=== PATIENT | female | born 1935 | race Caucasian/White ===

== ENCOUNTER → 2018-01-02 15:40 | Outpatient (CLI) | payer MEDICARE, OTHER, SELFPAY ==
--- NOTE | 2018-01-02 15:40 | DT_ITS ---
This patient was seen during an EMR downtime January 02, 2018 - January 09, 2018. This patient may have a combination of paper and electronic documentation or all paper documentation. All documentation is viewable within the e-chart portion of [facility] for each patient visit.
[2018-01-05 13:52] LABS: Pathologist Comment May follow
[2018-01-10 13:55] LABS: Appearance /Synovial Fluid Sl Cl (CLEAR); CRYSTALS, BODY FLUID MONOSODIUM URATE; Color / Synovial Fluid Yellow (Pale Yellow); Source- Body Fluid SYNOVIAL
[2018-01-10 13:56] LABS: RBC /Synovial Fluid 390 /mm3 (0); WBC / Synovial Fluid 45 /mm3 (0)
[2018-01-10 13:57] LABS: Lymph 33 %; Monocyte /Synovial Fluid 40 %; Neutrophil 23 % (0-25); Other Cell /Synovial Fluid 3 %
[2018-01-11 11:10] LABS: Pathologist Review Reviewed
== END ==
PROVIDERS: Family Provider Family Medicine; PCP Family Medicine; Visit Provider Internal Medicine Rheumatology
DX: M17.0 Bilateral primary osteoarthritis of knee (principal)
CPT/HCPCS: 87070; 87075; 87205; 89050; 89051; 89060

== ENCOUNTER → 2018-01-27 14:56 | Outpatient (CLI) | payer MEDICARE, OTHER, SELFPAY ==
[2018-01-27 15:57] LABS: Absolute Lymphocyte Count 0.91 X10^3/ul (0.83-4.51); Absolute Neutrophil Count 3.8 X10^3/uL (2.0-7.7); Basophil# 0.01 X10^3/uL; Basophil% 0.2 % (0-1); Eosinophil# 0.18 X10^3/uL; Eosinophils% 3.4 % (0-5); Hematocrit 42.7 % (37-47); Hemoglobin 13.4 g/dl (12.0-15.0); Lymphocyte # 0.91 X10^3/ul (4.0); Lymphocyte % 17.2 % (19-41); Mean Corp Hgb Conc 31.4 g/gl (32-36); Mean Corpuscular Hgb 27.1 pg (27.0-32.0); Mean Corpuscular Volume 86.3 fL (81-99); Mean Platelet Vol. 10.3 fl (6.2-12.0); Monocyte# 0.42 X10^3/uL; Monocyte% 7.9 % (0-10); Neutrophil # 3.77 X10^3/uL (2.7-7.7); Neutrophil % 71.1 % (47-70); Platelet Count 144 K/mm3 (150-450); RBC Distribution Width CV 15.2 % (11.6-14.6); RBC Distribution Width SD 47.9 fl (35.1-43.9); Red Blood Count 4.95 M/mm3 (4.2-5.4); White Blood Count 5.3 K/mm3 (4.4-11.0)
[2018-01-27 16:13] LABS: AST(SGOT) 25 U/L (15-37); Alanine Aminotransfer ALT/SGPT 35 U/L (13-56); Albumin, Serum 3.3 g/dL (3.2-5.0); Alkaline Phosphatase 73 U/L (45-117); Anion Gap 9 (5-15); BUN 19 mg/dL (7-18); Calcium,Total 8.6 mg/dL (8.5-10.1); Chloride 106 mmol/L (98-107); Creatinine, Serum 0.95 mg/dL (0.55-1.02); EST Glomerular Filtration Rate 60 mL/min (>60); Est Glom Filt Rate - Afr Amer 73 mL/min (>60); Globulin 3.2 g/dL (2.2-4.2); Glucose 117 mg/dL (74-106); Potassium 3.8 mmol/L (3.5-5.1); Protein, Total 6.5 g/dL (6.4-8.2); Sodium Level 142 mmol/L (136-145)
[2018-01-27 17:03] LABS: POSITIVE COUNT NO; POSITIVE DIFFERENTIAL NO; POSITIVE MORPHOLOGY NO
== END ==
PROVIDERS: Family Provider Family Medicine; PCP Family Medicine; Visit Provider Internal Medicine Rheumatology
DX: M06.4 Inflammatory polyarthropathy (principal); M17.0 Bilateral primary osteoarthritis of knee; M25.561 Pain in right knee; I12.9 Hypertensive chronic kidney disease with stage 1 through stage 4 chronic kidney disease, or unspecified chronic kidney disease; N18.9 Chronic kidney disease, unspecified; K27.9 Peptic ulcer, site unspecified, unspecified as acute or chronic, without hemorrhage or perforation
CPT/HCPCS: 36415; 80053; 85025

== ENCOUNTER → 2018-07-05 10:50 | Outpatient (CLI) | payer MEDICARE, OTHER, SELFPAY ==
[2018-07-05 12:01] LABS: Absolute Lymphocyte Count 1.26 X10^3/ul (0.83-4.51); Absolute Neutrophil Count 5.2 X10^3/uL (2.0-7.7); Basophil# 0.02 X10^3/uL; Basophil% 0.3 % (0-1); Eosinophil# 0.14 X10^3/uL; Hematocrit 39.8 % (37-47); Lymphocyte # 1.26 X10^3/ul (4.0); Lymphocyte % 17.8 % (19-41); Mean Corp Hgb Conc 32.7 g/gl (32-36); Mean Corpuscular Hgb 28.3 pg (27.0-32.0); Mean Corpuscular Volume 86.5 fL (81-99); Mean Platelet Vol. 10.4 fl (6.2-12.0); Monocyte# 0.42 X10^3/uL; Monocyte% 5.9 % (0-10); Neutrophil # 5.22 X10^3/uL (2.7-7.7); Neutrophil % 73.9 % (47-70); POSITIVE COUNT NO; POSITIVE DIFFERENTIAL NO; POSITIVE MORPHOLOGY NO; Platelet Count 152 K/mm3 (150-450); RBC Distribution Width CV 15.2 % (11.6-14.6); RBC Distribution Width SD 47.8 fl (35.1-43.9); White Blood Count 7.1 K/mm3 (4.4-11.0)
[2018-07-05 12:11] LABS: ALB/GLOB Ratio 0.9 RATIO (0.9-2.4); Albumin, Serum 2.9 g/dL (3.2-5.0); BUN 22 mg/dL (7-18); BUN/Creat Ratio 19.8 RATIO (10-20); Calcium,Total 8.6 mg/dL (8.5-10.1); Creatinine, Serum 1.11 mg/dL (0.55-1.02); EST Glomerular Filtration Rate 50 mL/min (>60); Est Glom Filt Rate - Afr Amer 61 mL/min (>60); Globulin 3.4 g/dL (2.2-4.2); Glucose 157 mg/dL (74-106); Protein, Total 6.3 g/dL (6.4-8.2)
[2018-07-05 12:12] LABS: AST(SGOT) 28 U/L (15-37); Alanine Aminotransfer ALT/SGPT 31 U/L (13-56); Alkaline Phosphatase 76 U/L (45-117); Anion Gap 7 (5-15); Chloride 108 mmol/L (98-107); Potassium 4.1 mmol/L (3.5-5.1); Sodium Level 144 mmol/L (136-145)
== END ==
PROVIDERS: Family Provider Family Medicine; PCP Family Medicine; Referring Provider Internal Medicine Rheumatology; Visit Provider Internal Medicine Rheumatology
DX: M06.4 Inflammatory polyarthropathy (principal); M15.9 Polyosteoarthritis, unspecified; M17.0 Bilateral primary osteoarthritis of knee; K27.9 Peptic ulcer, site unspecified, unspecified as acute or chronic, without hemorrhage or perforation; I12.0 Hypertensive chronic kidney disease with stage 5 chronic kidney disease or end stage renal disease; N18.9 Chronic kidney disease, unspecified
CPT/HCPCS: 36415; 80053; 85025

== ENCOUNTER 2018-07-26 22:51 | Emergency (ER) | payer MEDICARE, OTHER, SELFPAY ==
[2018-07-26 22:55] VITALS: BP 143/58; PULSE 78; RESP 18; TEMP 36.7; O2SAT 100; BMI 24.5
--- NOTE | 2018-07-26 23:07 | CT_ITS ---
STUDY: CT BRAIN WITHOUT CONTRAST REASON FOR EXAM: Female, 83 years old. Recent fall with closed head injury. There is no loss of consciousness. RADIATION DOSAGE (If Supplied By Facility): CTDIvol = ( 44.99 ) mGy, DLP = ( 745.49 ) mGycm TECHNIQUE: Transaxial CT imaging of the brain was performed without administration of intravenous contrast material. Multiplanar reformations are submitted for interpretation. Individualized dose optimization techniques were used for this CT. COMPARISON: None. FINDINGS: There is a soft tissue contusion involving the high left paramedian frontal scalp consistent with recent fall and closed head injury. Normal calvarium. There is moderate cerebral atrophy with widening of the extra-axial spaces and ventricular dilatation. Normal white matter tracts of the cerebral hemispheres. Normal basal ganglia and thalami. Normal brainstem. There is mild cerebellar atrophy. There is no intracranial hemorrhage. There is moderate atherosclerotic calcification of the intracranial arteries. Normal visualized paranasal sinuses. CT/Brain/Head without Contrast IMPRESSION: 1. Chronic involutional changes of the brain. 2. No CT evidence of acute intracranial hemorrhage. Electronically Signed: Caty Tom MD at 23:52 EST , Service support ,
--- NOTE | 2018-07-27 00:03 | ED.VISSUMM ---
- ER Visit Summary Date of Service: 07/27/18 Chief Complaint: Head injury History of Present Illness: The patient is a 83 F who presents with a head injury. She has a history of multiple prior falls. She was leaning forward because she was talking on speaker phone with her son and fell forward out of her chair and hit her left forehead. No loss of consciousness. No amnesia. No headache. No nausea or vomiting. She has not anticoagulated. Physical Examination: Afebrile vitals unremarkable There is a left forehead hematoma No focal or lateralizing neurological deficits and a GCS is 15 she is alert and oriented to person place and time Heart regular Lungs clear No extremity tenderness Test Results: CT of the head shows chronic changes only Emergency Department Course and Treatment: CT of the head showed no acute intracranial process no skull fracture no intracranial hemorrhage. Patient and family advised on supportive care and discharged home. They understand return for new or worsening symptoms. Treatment Plan: [] Disposition: Discharge Impression: Closed head injury Scalp hematoma Fall This note was generated with [employer] dictation software. It may contain incorrect words, spelling, and punctuation that were not noted in review of the chart prior to signing ED Disposition - Plan for ED Patient: Chief Complaint: Fall Referrals: Jacobo Kearney MD [Primary Care Provider] -
--- NOTE | 2018-07-27 00:05 | ED.DEP ---
ED Disposition - Plan for ED Patient: Chief Complaint: Fall Instructions: ED Mechanical Fall, ED Head Injury Closed Referrals: Jacobo Kearney MD [Primary Care Provider] -
[2018-07-27 00:29] VITALS: BP 140/57; PULSE 79; RESP 17; O2SAT 98
== END 2018-07-27 00:30 | disposition home or self-care (01) ==
LOC: ED 23:52
PROVIDERS: Emergency Provider Emergency Medicine; Family Provider Family Medicine; PCP Family Medicine
DX: S00.03XA Contusion of scalp, initial encounter (principal); R40.2410 Glasgow coma scale score 13-15, unspecified time; W07.XXXA Fall from chair, initial encounter; Z91.81 History of falling; Y93.9 Activity, unspecified; Y92.9 Unspecified place or not applicable; Z79.82 Long term (current) use of aspirin
CPT/HCPCS: 70450; 99284

== ENCOUNTER 2018-07-31 13:20 | Outpatient (RCR) | payer MEDICARE, OTHER, SELFPAY ==
[2018-07-31 13:33] LABS: Color, Urine Yellow (Yellow); Glucose, Dipstick Normal (Normal); Ketone-Dipstick Negative (Negative); Leukocyte Esterase-Dipstick 500 /ul (Negative); Nitrite-Dipstick Negative (Negative); Occult Blood-Urine 150 /ul (Negative); Protein-Dipstick 100 mg/dl (Negative); Specific Gravity, Urine 1.015 (1.002-1.030); Urine Bilirubin Dipstick Negative (Negative); Urine Clarity Turbid (Clear); Urine Urobilinogen Normal (Normal)
== END 2018-07-31 14:21 | disposition home or self-care (01) ==
LOC: HHLAB 13:20
PROVIDERS: Family Provider Family Medicine; PCP Family Medicine; Referring Provider Family Medicine; Visit Provider Family Medicine
DX: N39.0 Urinary tract infection, site not specified (principal); F03.90 Unspecified dementia, unspecified severity, without behavioral disturbance, psychotic disturbance, mood disturbance, and anxiety; L89.152 Pressure ulcer of sacral region, stage 2; F41.9 Anxiety disorder, unspecified
CPT/HCPCS: 81002; 87077; 87086; 87088; 87186

== ENCOUNTER 2018-08-31 22:13 | Inpatient (IN) | payer MEDICARE, OTHER, SELFPAY ==
[2018-08-31 22:15] VITALS: BP 147/74; PULSE 76; RESP 16; TEMP 36.7; O2SAT 98; BMI 19.5
--- NOTE | 2018-08-31 22:29 | CT_ITS ---
STUDY: CT BRAIN WITHOUT CONTRAST REASON FOR EXAM: Female, 83 years old. Confusion/altered mental status. RADIATION DOSAGE (If Supplied By Facility): CTDIvol = ( 20.80 ) mGy, DLP = ( 799.73 ) mGycm TECHNIQUE: Transaxial CT imaging of the brain was performed without administration of intravenous contrast material. Individualized dose optimization techniques were used for this CT. COMPARISON: Prior head CT exam of July 26, 2018 FINDINGS: Normal soft tissue structures. Normal calvarium. There is moderate cerebral atrophy with widening of the extra-axial spaces and ventricular dilatation. Normal white matter tracts of the cerebral hemispheres. Normal basal ganglia and thalami. Normal brainstem. There is mild cerebellar atrophy. There is no intracranial hemorrhage. There are no findings of an acute ischemic infarction. Normal visualized paranasal sinuses. CT/Brain/Head without Contrast IMPRESSION: No acute intracranial findings. Negative for hemorrhage, hematoma or mass density. Moderately advanced involutional changes stable from prior exam. Electronically Signed: Eden Cordoba MD at 23:05 EST , Service support ,
--- NOTE | 2018-08-31 22:30 | EKG12_ITS ---
Test Reason : STROKE SYMPTOMS Blood Pressure : / mmHG Vent. Rate : 072 BPM Atrial Rate : 072 BPM P-R Int : 156 ms QRS Dur : 122 ms QT Int : 396 ms P-R-T Axes : 058 -60 070 degrees QTc Int : 433 ms Normal sinus rhythm Right bundle branch block Left anterior fascicular block Bifascicular block Left ventricular hypertrophy with repolarization abnormality Abnormal ECG Confirmed by BRENDAN ROBLES, PALOMO ([id number]), acquisitions editor VASQUEZ SUBRAMANIAN ([id number]) on 09/05/2018 8:42:07 AM Referred By: MELISSA Confirmed By:PALOMO CARDONA MD
[2018-08-31 22:31] LABS: Bedside Glucose 172 mg/dL (70-110)
[2018-08-31 22:43] LABS: Basophil# 0.01 X10^3/uL; Basophil% 0.1 % (0-1); Eosinophil# 0.02 X10^3/uL; Eosinophils% 0.2 % (0-5); Hematocrit 44.6 % (37-47); Hemoglobin 14.6 g/dl (12.0-15.0); Lymphocyte % 8.9 % (19-41); Mean Corp Hgb Conc 32.7 g/gl (32-36); Mean Corpuscular Hgb 28.1 pg (27.0-32.0); Mean Corpuscular Volume 85.9 fL (81-99); Mean Platelet Vol. 10.3 fl (6.2-12.0); Monocyte# 1.07 X10^3/uL; Neutrophil # 7.03 X10^3/uL (2.7-7.7); Neutrophil % 78.6 % (47-70); Platelet Count 156 K/mm3 (150-450); RBC Distribution Width CV 15.1 % (11.6-14.6); RBC Distribution Width SD 46.7 fl (35.1-43.9); Red Blood Count 5.19 M/mm3 (4.2-5.4)
[2018-08-31 22:45] LABS: POSITIVE COUNT NO; POSITIVE DIFFERENTIAL NO; POSITIVE MORPHOLOGY NO
--- NOTE | 2018-08-31 22:46 | RAD_ITS ---
STUDY: X-RAY CHEST REASON FOR EXAM: Female, 83 years old. Confusion TECHNIQUE: Single AP portable view of the chest. COMPARISON: Prior chest radiograph of November 29, 2015. FINDINGS: The lungs are clear and expanded. Mild chronic elevation of the right diaphragm. Normal size heart. Status post prior midline sternotomy. Normal visualized pulmonary arteries. Normal visualized aortic arch and descending thoracic aorta. Normal visualized ribs, clavicles, and shoulders. There is no demonstrated abnormality of the visualized soft tissue structures of the upper abdomen. RAD/Chest 1 View (Portable) IMPRESSION: No acute cardiopulmonary findings or changes. Negative for major consolidation, focal atelectasis, pleural effusion or cardiomegaly. Status post prior midline sternotomy. Electronically Signed: Eden Cordoba MD at 23:02 EST , Service support ,
[2018-08-31 23:05] LABS: Anion Gap 8 (5-15); BUN 56 mg/dL (7-18); BUN/Creat Ratio 15.5 RATIO (10-20); Calcium,Total 9.3 mg/dL (8.5-10.1); Chloride 96 mmol/L (98-107); Creatinine, Serum 3.61 mg/dL (0.55-1.02); EST Glomerular Filtration Rate 13 mL/min (>60); Est Glom Filt Rate - Afr Amer 16 mL/min (>60); Estimated Creatinine Clearance 9.21 ml/min; Glucose 151 mg/dL (74-106); Potassium 5.9 mmol/L (3.5-5.1); Sodium Level 132 mmol/L (136-145)
--- NOTE | 2018-08-31 23:32 | ED.DCSUM_ITS ---
- ER Visit Summary Date of Service: 08/31/18 Chief Complaint: Transient unresponsiveness History of Present Illness: The patient is a 83 F here with spouse caregiver and family private vehicle for episode of transient unresponsiveness occurring at 7:30 PM this evening. This was 3 hours prior to arrival. Caregiver was placing patient from wheelchair into recliner, states patient slumped head forward and was pursed breathing with her lips that lasted for 30 seconds. Patient was unarousable during that time. Patient came back to normal and has been baseline. History of dementia alert and oriented to person. Patient is wheelchair-bound for transport, can slightly weight-bear for transfer. This is due to debility over time. There is no injuries. Reported patient had a UTI 2 weeks ago and treated. A week ago found to have shingles on the left chest wall on antivirals with improving rash. Patient denies any symptoms currently. Additional medical history notes coronary disease with 1 stent in the past, hypertension, hypercholesterolemia, anxiety and depression. Family denies any recent vomiting or diarrhea. Denies any cough. Physical Examination: General: Alert and oriented to person, no acute distress, following commands. HEENT: Normocephalic, atraumatic. Moist mucosa membranes Neck: supple, nontender. Cardiovascular: Regular rate and rhythm, no murmurs Respiratory: Normal breath sounds, symmetric, no distress Abdomen: Soft, nontender, nondistended Extremities: Nontender, mild lower extremity edema, pulses intact ?4 Neuro: no focal neurological deficits. Unable to access for neurological including NIH due to patient dementia and baseline debility. Test Results: EKG sinus rate of 72 right bundle branch block no ST or T wave changes. No peak T waves. CT head negative. Chest x-ray with no acute findings. Emergency Department Course and Treatment: Patient vital signs stable, afebrile. Patient is baseline per family. The family concerns of the unresponsive event, workup initiated. Discussed with spouse who is bedside and family CODE STATUS, and he reports we would like her around still. Discussed if symptoms deteriorate with intubation and CPR and he states yes. Workup initiated. CT head negative. Chest x-ray negative. EKG with chronic right bundle branch block. White count 9 hemoglobin 14.6. Platelets 156. Patient had a creatinine of 3.61 and BUN of 56. Creatinine was 0.95-1.11 less than 2 months ago. She was given 500 cc bolus. Potassium was hemolyzed moderately was 5.9. I will reason for a recheck due to hemolysis. However could be high due to her AK I. Her EKG did not show any hyperkalemic changes. Pending results, I did discuss with hospitalist for admission due to acute kidney injury. Recheck potassium without treatment due to moderate hemolysis and have an AK, results in the normal range at 4.6. She will be admitted to the medical floor. Treatment Plan: [] Disposition: Admission Impression: 1. Acute kidney injury 2. Transient unresponsiveness This note was generated with [employer] dictation software. It may contain incorrect words, spelling, and punctuation that were not noted in review of the chart prior to signing ED Disposition - Plan for ED Patient: Disposition: Acute Care Hospital [facility] Diagnosis: Acute kidney injury, transient unresponsiveness Referrals: Jacobo Kearney MD [Primary Care Provider] -
[2018-08-31 23:39] VITALS: PULSE 62; RESP 18; O2SAT 100
[2018-08-31 23:40] LABS: Red Blood Cells-Urine 0 SEEN /hpf (0-5)
[2018-08-31 23:48] LABS: Color, Urine Yellow (Yellow); Glucose, Dipstick Normal (Normal); Ketone-Dipstick Negative (Negative); Leukocyte Esterase-Dipstick 25 /ul (Negative); Nitrite-Dipstick Negative (Negative); Occult Blood-Urine 10 /ul (Negative); Protein-Dipstick 100 mg/dl (Negative); Urine Bilirubin Dipstick Negative (Negative); Urine Clarity Sl. Cloudy (Clear); Urine Urobilinogen Normal (Normal)
[2018-08-31 23:48] LABS: Potassium 4.6 mmol/L (3.5-5.1)
--- NOTE | 2018-08-31 23:52 | PCM.HP.STD ---
Problem List (1) Acute kidney injury Status: Acute (2) Confusion Status: Deleted (3) Inflammatory polyarthritis Status: Chronic (4) Hypertension Status: Chronic (5) Hyperlipidemia Status: Chronic (6) CAD (coronary artery disease) Status: Chronic Comment: Multiple stents (7) Anxiety and depression Status: Chronic History of Present Illness Date of Admission: 08/31/18 Chief Complaint: Reported unresponsiveness, weakness, poor oral intake. The patient is a 83 year old F with past medical history as mentioned above presented to the emergency room because of reported very short. Of unresponsiveness. According to the patient's and daughter, patient's caregiver was placing her from the wheelchair to the recliner and patient was slumped her head forward, was lethargic for about 30 seconds and according to the patient caregiver, patient was unarousable. When I was talking to the patient's family about this transient episode of unresponsiveness, the patient herself stated that she is not in agreement that she passed out and she was aware of surroundings but she was very weak and sleepy. She denied any prodromal symptoms such as chest pain, shortness of breath, dizziness or lightheadedness. This patient had her daughter around 1 week ago in this hospital and according to her , she has been depressed, lonely most of her time and not eating or drinking enough. The patient is wheelchair-bound most of her time and she can only weight-bear for transfers. She has history of CAD status post CABG and stents and she has been on only aspirin, she is not on beta-blockers or JORDI inhibitors. She has history of hypertension and currently, she is not on any antihypertensive medications and her blood pressure has been stable. She had a history of anxiety and depression and she has been on escitalopram and risperidone. In the emergency department, her vital signs were stable. Patient was depressed, no eye contact and she closed her eyes most of the encounter but she was alert and oriented x3. Her routine blood work was remarkable for hyponatremia, BUN of 56 and creatinine of 3.61. Urinalysis revealed cloudy urine, negative for nitrite, 0-5 WBCs and rare bacteria seen. EKG revealed sinus rhythm with right bundle branch block, no acute findings. CT scan brain showed no acute findings. Chest x-ray showed no acute infiltrate, consolidation or effusion. She is being admitted for acute kidney injury likely due to poor oral intake and dehydration as well as metabolic encephalopathy. Past Medical History Past Medical History (Chronic Problems): Chronic Problems Inflammatory polyarthritis (Chronic) Hypertension (Chronic) Obesity (BMI 30.0-34.9) (Chronic) Hyperlipidemia (Chronic) CAD (coronary artery disease) (Chronic) Multiple stents Anxiety and depression (Chronic) Allergies Penicillins Allergy (Verified 08/31/18 22:19) Rash erythromycin base [Erythromycin Base] Adverse Reaction (Verified 08/31/18 22:19) Nausea/Vom/Diarrhea Sulfa (Sulfonamide Antibiotics) Adverse Reaction (Verified 08/31/18 22:19) Nausea/Vom/Diarrhea Home Medications: Ambulatory Orders Medication Instructions Recorded Aspirin 81 mg PO DAILY 07/26/18 Calcium Carbonate/Vitamin D3 1 each PO BID 07/26/18 [Oyster Shell Calcium-Vit D Tab] Cholecalciferol (VIT D3) [Vitamin 1,000 unit PO SUMOWEFR 07/26/18 D] Cholecalciferol (VIT D3) [Vitamin 1,000 unit PO TUTHSA 07/26/18 D] Escitalopram Oxalate 10 mg PO QHS 07/26/18 Folic Acid 0.4 mg PO DAILY@0800 07/26/18 Hydroxychloroquine [Plaquenil] 200 mg PO DAILYCM 07/26/18 Multivitamin/Iron/Folic Acid 1 each PO DAILY 07/26/18 [Centrum Adults Tablet] Risperidone 0.5 mg PO BID 07/26/18 Valacyclovir HCl [Valacyclovir] 1,000 mg PO TID 08/31/18 Surgical History: appendectomy, coronary bypass surgery, hysterectomy, - - CABG x 1, PCI x 2, hysterectomy, appendectomy. 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 Denies: Chills, Fever Eyes: Denies: Blurred vision, Double vision, Drainage, Redness HEENT: Denies: Difficulty Hearing, Ear Pain, Eye Pain, Nasal Congestion, Sore Throat Cardiovascular: Denies: Chest Pain, Chest Pressure, Chest Tightness, Heaviness, Palpitations, Syncope Respiratory: Denies: Cough, Pleuritic Pain, Shortness of Breath, Sputum production, Wheezing Gastrointestinal: Denies: Abdominal Pain, Constipation, Diarrhea, Nausea, Vomiting Genitourinary: Denies: Dysuria, Frequency, Hematuria Musculoskeletal: Denies: Arm Pain, Back Pain, Foot Pain Skin: Denies: Dryness, Rash Neurological: Denies: Balance problems, Double vision, Change in Speech, Slurred speech, Headaches, Incoordination Psychiatric: Reports: Anxiety, Depression Endocrine: Denies: Change in Body Habitus, Polydipsia VTE Information - Inpt Only VTE Present on Admission: No VTE Mechan Device Prophylaxis: None VTE Pharm Prophylaxis ordered?: Yes Patient Problems: Active and Suspected Problems Encephalopathy (Acute) Acute kidney injury (Acute) - Physical Exam General: Alert, Oriented x3, Cooperative, No apparent distress, - HEENT: Atraumatic, PERRLA, EOMI, Normocephalic Oral: No Gingival or Mucosal Lesions/ Ulcerations, Dry Mucosa Neck: Supple, No JVD, Negative Carotid Bruits, Trachea Midline, Thyroid Normal Size and Texture Lungs: Clear to auscultation, No rhonchi, No wheeze, No rales, Diminished Cardiovascular: Regular rate, Regular Rhythm, Normal S1, Normal S2, PMI Normal Abdomen: Bowel Sounds Present, Soft, Non Tender, Non-Distended, No Hepato-splenomegaly Extremities: No clubbing, No cyanosis, No edema Skin: No rashes, No breakdown Lymphatic: No Cervical, Supraclavicular, or Inguinal Adenopathy Neurological: Cranial nerves II-XII grossly intact, Motor Exam 5/5 strength throughout, - - Global weakness. Psych/Mental Status: Depressed, - - No eye contact. Vital Signs Temp Pulse Resp BP Pulse Ox 98.0 F 62 18 147/74 H 100 08/31/18 22:15 08/31/18 23:39 08/31/18 23:39 08/31/18 22:15 08/31/18 23:39 Oxygen Flow Rate (L/min) 76 Oxygen Delivery Method Room Air Weight: 107 lb Body Mass Index (BMI) 19.5 Finger Stick Blood Glucose 172 Laboratory Tests Past 24 Hrs 08/31/18 08/31/18 08/31/18 22:30 22:30 23:25 WBC 9.0 RBC 5.19 Hgb 14.6 Hct 44.6 MCV 85.9 MCH 28.1 MCHC 32.7 RDW 15.1 H RDW Differential 46.7 H Plt Count 156 MPV 10.3 Immature Gran % (Auto) 0.200 Neut % (Auto) 78.6 H Lymph % (Auto) 8.9 L [place] % (Auto) 12.0 H Eos % (Auto) 0.2 Baso % (Auto) 0.1 Absolute Neuts (auto) 7.0 Absolute Lymphs (auto) 0.80 L Total Counted Not Reportable Sodium 132 L Potassium 5.9 H 4.6 Chloride 96 L Carbon Dioxide 28.0 Anion Gap 8 BUN 56 H Creatinine 3.61 H Estim Creat Clear Calc 9.21 Est GFR (MDRD) Af Amer 16 L Est GFR (MDRD) Non-Af 13 L BUN/Creatinine Ratio 15.5 Glucose 151 H Calcium 9.3 Urine Color Urine Clarity Urine pH Ur Specific [place] Urine Protein Urine Glucose (UA) Urine Ketones Urine Occult Blood Urine Nitrite Urine Bilirubin Urine Urobilinogen Ur Leukocyte Esterase Urine RBC Urine WBC Ur Squamous Epith Cells Urine Bacteria Urine Mucus 08/31/18 23:35 WBC RBC Hgb Hct MCV MCH MCHC RDW RDW Differential Plt Count MPV Immature Gran % (Auto) Neut % (Auto) Lymph % (Auto) [place] % (Auto) Eos % (Auto) Baso % (Auto) Absolute Neuts (auto) Absolute Lymphs (auto) Total Counted Sodium Potassium Chloride Carbon Dioxide Anion Gap BUN Creatinine Estim Creat Clear Calc Est GFR (MDRD) Af Amer Est GFR (MDRD) Non-Af BUN/Creatinine Ratio Glucose Calcium Urine Color Yellow Urine Clarity Sl. Cloudy Urine pH 6.0 Ur Specific [place] 1.010 Urine Protein 100 H Urine Glucose (UA) Normal Urine Ketones Negative Urine Occult Blood 10 H Urine Nitrite Negative Urine Bilirubin Negative Urine Urobilinogen Normal Ur Leukocyte Esterase 25 H Urine RBC Pending Urine WBC Pending Ur Squamous Epith Cells Pending Urine Bacteria Pending Urine Mucus Pending POC Glucose 08/31/18 22:24 POC Glucose 172 H Clinical Impression(s) from Imaging Studies Brain CT 08/31/18 22:29 IMPRESSION: No acute intracranial findings. Negative for hemorrhage, hematoma or mass density. Moderately advanced involutional changes stable from prior exam. Electronically Signed: Eden Cordoba MD at 23:05 EST , Service support , Chest X-Ray 08/31/18 22:46 IMPRESSION: No acute cardiopulmonary findings or changes. Negative for major consolidation, focal atelectasis, pleural effusion or cardiomegaly. Status post prior midline sternotomy. Electronically Signed: Eden Cordoba MD at 23:02 EST , Service support , Assessment/Plan All Active Problems Encephalopathy (Acute) Acute kidney injury (Acute) This is an 83 years old female patient presented to the ED because of reported transient episode of unresponsiveness versus lethargy and sleepiness, weakness, poor oral intake and she was found to have acute kidney injury with hyponatremia as well as encephalopathy which is likely metabolic. #1 acute kidney injury/hyponatremia: This is prerenal secondary to severe dehydration and poor oral intake. It is hypovolemic hyponatremia. Baseline kidney function is normal. Patient's daughter 1 week ago and patient has been depressed, not eating or drinking enough. Plan: Admit to [facility] floor, telemetry, encourage oral intake, IV fluids, input output chart, regular diet, repeat CBC and BMP tomorrow morning, PT OT evaluation and treatment. #2 encephalopathy: Patient had a reported transient unresponsiveness but patient herself is not in agreement because she thinks that she was awake but very sleepy and weak. No evidence of focal deficit on physical exam. CT scan brain showed no acute findings. EKG revealed normal sinus rhythm with right bundle branch block, no acute findings. Her vital signs are stable. At this time, she is alert and oriented x3 although her eyes were closed during my encounter. This likely metabolic encephalopathy secondary to acute kidney injury and poor oral intake. Blood sugar has been stable. Plan: IV fluids as above, PT OT evaluation and treatment. #3 CAD status post CABG and stents: EKG reviewed as above, stable, continue aspirin. Patient is not on beta-blockers or JORDI inhibitors, not sure why. #4 hypertension: Blood pressure stable, she is not on any antihypertensive medications. #5 hyperlipidemia: She is not on statin at this time. #6 inflammatory polyarthritis: Continue Plaquenil, Tylenol as needed. #7 anxiety/depression: Continue escitalopram, hold risperidone. #8 DVT prophylaxis: Subcu heparin. This note was generated with [employer] dictation software. It may contain incorrect words, spelling, and punctuation that were not noted in checking the note before signing. Code Visit Inpatient E&M: 55184 Init Hosp L3
[2018-08-31 23:55] LABS: Squamous Epithelial Cells - UA 0-5 SEEN /hpf (5-10)
[2018-08-31 23:56] LABS: Amorphous Sediment 1+; Bacteria RARE /hpf (None Seen); Mucous, Urine 1+ /hpf (<or=2+); White Blood Cells 0-5 SEEN /hpf (0-5)
[2018-09-01] VITALS (13 sets, daily range): BP systolic 120–173; BP diastolic 44–78; PULSE 61–74; RESP 14–18; TEMP 36.2–37.6; O2SAT 95–100; BMI 21.7; BMI 21.8
--- NOTE | 2018-09-01 00:36 | EKG12_ITS ---
Test Reason : CP Blood Pressure : / mmHG Vent. Rate : 059 BPM Atrial Rate : 059 BPM P-R Int : 164 ms QRS Dur : 138 ms QT Int : 434 ms P-R-T Axes : 027 -50 062 degrees QTc Int : 429 ms Sinus bradycardia Right bundle branch block Left anterior fascicular block Bifascicular block Left ventricular hypertrophy with repolarization abnormality Abnormal ECG Confirmed by BRENDAN ROBLES, PALOMO ([id number]), photo editor VASQUEZ SUBRAMANIAN ([id number]) on 09/06/2018 1:48:47 PM Referred By: NICKY Confirmed By:PALOMO CARDONA MD
[2018-09-01] MEDS: 0.9% Normal Saline 1,000 ML 125 ML IV ×3 (02:31→17:08)
[2018-09-01] MEDS: Acyclovir 800 MG Tablet PO ×3 (05:15→20:24)
[2018-09-01] MEDS: Heparin Injection (Vial) 5,000 UNIT/ML VIAL 5000 UNIT SC ×3 (05:15→20:23)
[2018-09-01 05:18] LABS: Absolute Lymphocyte Count 0.78 X10^3/ul (0.83-4.51); Absolute Neutrophil Count 4.9 X10^3/uL (2.0-7.7); Basophil# 0.01 X10^3/uL; Basophil% 0.2 % (0-1); Eosinophil# 0.11 X10^3/uL; Eosinophils% 1.7 % (0-5); Hemoglobin 11.8 g/dl (12.0-15.0); Lymphocyte # 0.78 X10^3/ul (4.0); Lymphocyte % 11.9 % (19-41); Mean Corp Hgb Conc 32.8 g/gl (32-36); Mean Corpuscular Volume 85.3 fL (81-99); Mean Platelet Vol. 10.2 fl (6.2-12.0); Monocyte# 0.73 X10^3/uL; Monocyte% 11.1 % (0-10); Neutrophil % 74.8 % (47-70); Platelet Count 134 K/mm3 (150-450); RBC Distribution Width CV 14.9 % (11.6-14.6); RBC Distribution Width SD 44.6 fl (35.1-43.9); Red Blood Count 4.22 M/mm3 (4.2-5.4); White Blood Count 6.6 K/mm3 (4.4-11.0)
[2018-09-01 05:21] LABS: POSITIVE COUNT NO; POSITIVE DIFFERENTIAL NO; POSITIVE MORPHOLOGY NO
[2018-09-01 05:33] LABS: Anion Gap 12 (5-15); BUN 56 mg/dL (7-18); BUN/Creat Ratio 17.7 RATIO (10-20); Calcium,Total 8.3 mg/dL (8.5-10.1); Chloride 102 mmol/L (98-107); Creatinine, Serum 3.17 mg/dL (0.55-1.02); EST Glomerular Filtration Rate 15 mL/min (>60); Est Glom Filt Rate - Afr Amer 18 mL/min (>60); Estimated Creatinine Clearance 10.82 ml/min; Glucose 94 mg/dL (74-106); Sodium Level 138 mmol/L (136-145)
--- NOTE | 2018-09-01 08:51 | PCM.PN.HOSP ---
Patient Problems: Active and Suspected Problems Encephalopathy (Acute) Acute kidney injury (Acute) Subjective: Patient is an 83-year-old lady with history of underlying dementia was brought to the ED by the family on account of increasing lethargy. Patient assessment on admission was consistent with acute metabolic encephalopathy from acute kidney injury. Admitted to regular nursing floor for further management Objective: GENERAL: Sleepy but arousable HEENT: Atraumatic; EYES; Anicteric, NECK; supple, normal thyroid, RESPIRATORY: Diminished to auscultation bilaterally, CARDIOVASCULAR: Regular S1 S2, GI: soft, non-tender, normoactive bowel sounds, : No Renal angle tenderness; EXTREMITIES: No edema, no clubbing, no cyanosis. NEURO: Unable to assess due to patient lethargy SKIN: No Rash PSYCH; lethargic Vitals/I&O's: Vital Signs Temp Pulse Resp BP Pulse Ox 97.4 F L 73 14 142/61 H 98 09/01/18 05:12 09/01/18 06:04 09/01/18 05:12 09/01/18 05:12 09/01/18 05:12 Oxygen Flow Rate (L/min) 76 Oxygen Delivery Method Room Air Weight: 54 kg Body Mass Index (BMI) 21.7 Finger Stick Blood Glucose 172 Intake and Output for Last 24 Hours 08/30/18 08/31/18 09/01/18 23:59 23:59 23:59 Intake Total 674 / 674 Balance 674 / 674 Laboratory Results 08/31/18 22:24: POC Glucose 172 H 08/31/18 22:30: WBC 9.0, RBC 5.19, Hgb 14.6, Hct 44.6, MCV 85.9, MCH 28.1, MCHC 32.7, RDW 15.1 H, RDW Differential 46.7 H, Plt Count 156, MPV 10.3, Immature Gran % (Auto) 0.200, Neut % (Auto) 78.6 H, Lymph % (Auto) 8.9 L, [place]ard % (Auto) 12.0 H, Eos % (Auto) 0.2, Baso % (Auto) 0.1, Absolute Neuts (auto) 7.0, Absolute Lymphs (auto) 0.80 L, Total Counted Not Reportable 08/31/18 22:30: Sodium 132 L, Potassium 5.9 H, Chloride 96 L, Carbon Dioxide 28.0, Anion Gap 8, BUN 56 H, Creatinine 3.61 H, Estim Creat Clear Calc 9.21, Est GFR (MDRD) Af Amer 16 L, Est GFR (MDRD) Non-Af 13 L, BUN/Creatinine Ratio 15.5, Glucose 151 H, Calcium 9.3 08/31/18 23:25: Potassium 4.6 08/31/18 23:35: Urine Color Yellow, Urine Clarity Sl. Cloudy, Urine pH 6.0, Ur Specific Lindsay 1.010, Urine Protein 100 H, Urine Glucose (UA) Normal, Urine Ketones Negative, Urine Occult Blood 10 H, Urine Nitrite Negative, Urine Bilirubin Negative, Urine Urobilinogen Normal, Ur Leukocyte Esterase 25 H, Urine RBC 0 SEEN, Urine WBC 0-5 SEEN, Ur Squamous Epith Cells 0-5 SEEN, Amorphous Sediment 1+, Urine Bacteria RARE, Urine Mucus 1+ 09/01/18 04:56: WBC 6.6, RBC 4.22, Hgb 11.8 L, Hct 36.0 L, MCV 85.3, MCH 28.0, MCHC 32.8, RDW 14.9 H, RDW Differential 44.6 H, Plt Count 134 L, MPV 10.2, Immature Gran % (Auto) 0.300, Neut % (Auto) 74.8 H, Lymph % (Auto) 11.9 L, Seward % (Auto) 11.1 H, Eos % (Auto) 1.7, Baso % (Auto) 0.2, Absolute Neuts (auto) 4.9, Absolute Lymphs (auto) 0.78 L, Total Counted Not Reportable 09/01/18 04:56: Sodium 138, Potassium 4.0, Chloride 102, Carbon Dioxide 24.0, Anion Gap 12, BUN 56 H, Creatinine 3.17 H, Estim Creat Clear Calc 10.82, Est GFR (MDRD) Af Amer 18 L, Est GFR (MDRD) Non-Af 15 L, BUN/Creatinine Ratio 17.7, Glucose 94, Calcium 8.3 L Current Medications Acetaminophen (Tylenol) 650 mg PO Q6H PRN PRN PRN Reason: Fever, headache, pain Acyclovir (Zovirax) 800 mg PO TID [facility] Aspirin (Aspirin, Baby) 81 mg PO DAILYCM [facility] Escitalopram Oxalate (Lexapro) 10 mg PO QHS [facility] Folic Acid (Folic Acid) 0.5 mg PO DAILY@0800 [facility] Heparin Sodium (Porcine) (Heparin Na) 5,000 unit SC Q8 [facility] Last Admin: 09/01/18 05:15 Dose: 5,000 unit Hydroxychloroquine Sulfate (Plaquenil) 200 mg PO DAILYCM [facility] Sodium Chloride () 1,000 mls @ 125 mls/hr IV .Q8H [facility] Last Admin: 09/01/18 02:31 Dose: 125 mls/hr Magnesium Hydroxide (Milk Of Magnesia) 30 ml PO DAILY PRN PRN PRN Reason: Constipation Multivitamins/Minerals (Multivitamin With Minerals) 1 tablet PO DAILY@0800 [facility] Nutritional Formula (Lactose Free) (Ensure Enlive) 120 ml PO 4X/DAY [facility] Ondansetron HCl (Zofran) 4 mg IV Q6H PRN PRN PRN Reason: NAUSEA/VOMITING Sodium Chloride () 5 - 15 ml IV UD PRN PRN Reason: SALINE FLUSH Medical Necessity - Tobacco Use Smoking Status: Former smoker Assessment/Plan All Active Problems Encephalopathy (Acute) Acute kidney injury (Acute) Patient is an 83-year-old lady with history of underlying dementia was brought to the ED by the family on account of increasing lethargy. Patient assessment on admission was consistent with acute metabolic encephalopathy from acute kidney injury. Admitted to regular nursing floor for further management 1. Acute metabolic encephalopathy secondary to acute kidney injury 2. Acute kidney injury secondary to decreased oral intake and dehydration. Patient baseline creatinine 0.9 creatinine on admission 3.61. Admitted to regular nursing floor where patient is being resuscitated with IV fluids 3. Hyponatremia secondary to hypovolemic hyponatremia on IV fluids with monitoring of electrolyte 4. CAD with previous CABG and subsequent stent placement patient remains stable 5. Hypertension patient blood pressure remains stable 6. Dyslipidemia per history not on any statin therapy 7. Inflammatory polyarthritis patient is on Plaquenil at home 8. Depression with anxiety 9. DVT prophylaxis: Subcu heparin. Active Medications Acetaminophen (Tylenol) 650 mg PO Q6H PRN PRN PRN Reason: Fever, headache, pain Acyclovir (Zovirax) 800 mg PO TID [facility] Escitalopram Oxalate (Lexapro) 10 mg PO QHS [facility] Folic Acid (Folic Acid) 0.5 mg PO DAILY@0800 [facility] Heparin Sodium (Porcine) (Heparin Na) 5,000 unit SC Q8 [facility] Last Admin: 09/01/18 05:15 Dose: 5,000 unit Hydroxychloroquine Sulfate (Plaquenil) 200 mg PO DAILYCM [facility] Sodium Chloride () 1,000 mls @ 125 mls/hr IV .Q8H [facility] Last Admin: 09/01/18 02:31 Dose: 125 mls/hr Magnesium Hydroxide (Milk Of Magnesia) 30 ml PO DAILY PRN PRN PRN Reason: Constipation Multivitamins/Minerals (Multivitamin With Minerals) 1 tablet PO DAILY@0800 [facility] Nutritional Formula (Lactose Free) (Ensure Enlive) 120 ml PO 4X/DAY [facility] Ondansetron HCl (Zofran) 4 mg IV Q6H PRN PRN PRN Reason: NAUSEA/VOMITING Sodium Chloride () 5 - 15 ml IV UD PRN PRN Reason: SALINE FLUSH Clinical Impression(s) from Imaging Studies Brain CT 08/31/18 22:29 IMPRESSION: No acute intracranial findings. Negative for hemorrhage, hematoma or mass density. Moderately advanced involutional changes stable from prior exam. Electronically Signed: Eden Cordoba MD at 23:05 EST , Service support , Chest X-Ray 08/31/18 22:46 IMPRESSION: No acute cardiopulmonary findings or changes. Negative for major consolidation, focal atelectasis, pleural effusion or cardiomegaly. Status post prior midline sternotomy. Electronically Signed: Eden Cordoba MD at 23:02 EST , Service support , Code Visit Inpatient E&M: 41423 Subs Hosp L3
[2018-09-01] MEDS: Folic Acid 1 MG Tablet 0.5 MG PO (09:41)
[2018-09-01] MEDS: Aspirin 81 MG TAB.CHEW PO (09:41)
[2018-09-01] MEDS: Hydroxychloroquine 200 MG Tablet PO (09:43)
[2018-09-01] MEDS: Multivitamins,Ther W-Minerals Tablet 1 TABLET PO (09:43)
--- NOTE | 2018-09-01 11:50 | CASEMGMT ---
SEAN STEVENS Face to Face with patient for initial transition planning/care coordination assessment. SEAN STEVENS introduced self and role at [facility]. Patient lying in bed, alert, and child care assistant at bedside. Family willing to participate in assessment and is able to answer all questions appropriately. Care providers, pharmacy, and demographics verified. wishes for patient to discharge home with resumption of HHC with [facility], and would like therapy added for at home. states he has no further needs or concerns at this time. SE[facility] STEVENS [facility] for [facility] for detention and add PT/OT to eval and treat. CM to follow for discharge planning needs that may arise. PCP: [facility] Specialists: Hema, system development manager; Preferred Pharmacy: [facility] Insurance: [id number] Prescription Benefit: Yes Living Will/HPOA: Yes, Jamarcus Keller HPOA LNOK: Living Arrangements: Patient lives with in a house with handicap accessible addition on main level of home. Patient has 24hr care givers. Transportation: Care givers DME/HHC: Patient has shower chair, hospital bed, jg, grab bars, and wheel chair at home. Denies use of oxygen, bipap, cpap, nebulizer at home. Patient has 24 hours private care givers. Disposition Plan: Patient to discharge home with [facility], family support, and follow-up plans in place. Delaney BOLTON, RN, CM
[2018-09-01] MEDS: Ondansetron 4 MG/2 ML Vial IV (17:08)
[2018-09-01] MEDS: 0.9% NaCl Peripheral Flush Adult/Peds IV (17:08)
[2018-09-01] MEDS: Acetaminophen 325 MG Tablet 650 MG PO (20:23)
[2018-09-01] MEDS: Escitalopram Oxalate 10 MG Tablet PO (20:24)
[2018-09-02] VITALS (14 sets, daily range): BP systolic 136–168; BP diastolic 53–78; PULSE 51–75; RESP 15–18; TEMP 36.8–37.6; O2SAT 96–98
[2018-09-02] MEDS: 0.9% Normal Saline 1,000 ML 125 ML IV ×3 (01:22→18:00)
[2018-09-02] MEDS: Heparin Injection (Vial) 5,000 UNIT/ML VIAL 5000 UNIT SC ×3 (06:47→21:50)
--- NOTE | 2018-09-02 07:33 | PN_ITS ---
Patient Problems: Active and Suspected Problems Encephalopathy (Acute) Acute kidney injury (Acute) Subjective: Patient was apparently restless during most of the night she is in a deep slumber this a.m. her kidney function continues to improve infectious workup so far negative to date. Objective: GENERAL: Sleepy but arousable HEENT: Atraumatic; EYES; Anicteric, NECK; supple, normal thyroid, RESPIRATORY: Diminished to auscultation bilaterally, CARDIOVASCULAR: Regular S1 S2, GI: soft, non-tender, normoactive bowel sounds, : No Renal angle tenderness; EXTREMITIES: No edema, no clubbing, no cyanosis. NEURO: Unable to assess due to patient lethargy SKIN: No Rash PSYCH; lethargic Vitals/I&O's: Vital Signs Temp Pulse Resp BP Pulse Ox 98.8 F 55 L 16 136/65 H 97 09/02/18 06:00 09/02/18 06:00 09/02/18 06:00 09/02/18 06:00 09/02/18 06:00 Oxygen Flow Rate (L/min) 76 Oxygen Delivery Method Room Air Weight: 54 kg Body Mass Index (BMI) 21.7 Finger Stick Blood Glucose 172 Intake and Output for Last 24 Hours 08/31/18 09/01/18 09/02/18 23:59 23:59 23:59 Intake Total 3224 / 3224 1052 / 1052 Balance 3224 / 3224 1052 / 1052 Current Medications Acetaminophen (Tylenol) 650 mg PO Q6H PRN PRN PRN Reason: Fever, headache, pain Last Admin: 09/01/18 20:23 Dose: 650 mg Acyclovir (Zovirax) 800 mg PO TID [facility] Last Admin: 09/02/18 07:16 Dose: Not Given Aspirin (Aspirin, Baby) 81 mg PO DAILYCM [facility] Last Admin: 09/01/18 09:41 Dose: 81 mg Escitalopram Oxalate (Lexapro) 10 mg PO QHS [facility] Last Admin: 09/01/18 20:24 Dose: 10 mg Folic Acid (Folic Acid) 0.5 mg PO DAILY@0800 [facility] Last Admin: 09/01/18 09:41 Dose: 0.5 mg Heparin Sodium (Porcine) (Heparin Na) 5,000 unit SC Q8 [facility] Last Admin: 09/02/18 06:47 Dose: 5,000 unit Hydroxychloroquine Sulfate (Plaquenil) 200 mg PO DAILYCM [facility] Last Admin: 09/01/18 09:43 Dose: 200 mg Sodium Chloride () 1,000 mls @ 125 mls/hr IV .Q8H [facility] Last Admin: 09/02/18 01:22 Dose: 125 mls/hr Magnesium Hydroxide (Milk Of Magnesia) 30 ml PO DAILY PRN PRN PRN Reason: Constipation Multivitamins/Minerals (Multivitamin With Minerals) 1 tablet PO DAILY@0800 [facility] Last Admin: 09/01/18 09:43 Dose: 1 tablet Nutritional Formula (Lactose Free) (Ensure Enlive) 120 ml PO 4X/DAY [facility] Last Admin: 09/02/18 07:11 Dose: Not Given Ondansetron HCl (Zofran) 4 mg IV Q6H PRN PRN PRN Reason: NAUSEA/VOMITING Last Admin: 09/01/18 17:08 Dose: 4 mg Sodium Chloride () 5 - 15 ml IV UD PRN PRN Reason: SALINE FLUSH Last Admin: 09/01/18 17:08 Dose: 10 ml Medical Necessity - Tobacco Use Smoking Status: Former smoker Assessment/Plan All Active Problems Encephalopathy (Acute) Acute kidney injury (Acute) Patient is an 83-year-old lady with history of underlying dementia was brought to the ED by the family on account of increasing lethargy. Patient assessment on admission was consistent with acute metabolic encephalopathy from acute kidney injury. Admitted to regular nursing floor for further management 1. Acute metabolic encephalopathy secondary to acute kidney injury. Management as discussed below 2. Acute kidney injury secondary to decreased oral intake and dehydration. Patient baseline creatinine 0.9 creatinine on admission 3.61. Admitted to regular nursing floor where patient is being resuscitated with IV fluids. Patient kidney function continues to improve 3. Hyponatremia secondary to hypovolemic hyponatremia on IV fluids with monitoring of electrolyte 4. CAD with previous CABG and subsequent stent placement patient remains stable 5. Hypertension patient blood pressure remains stable 6. Dyslipidemia per history not on any statin therapy 7. Inflammatory polyarthritis patient is on Plaquenil at home 8. Depression with anxiety 9. DVT prophylaxis: Subcu heparin. Code Visit Inpatient E&M: 64515 Subs Hosp L2
[2018-09-02 07:59] LABS: Hematocrit 34.9 % (37-47); Hemoglobin 11.2 g/dl (12.0-15.0); Mean Corp Hgb Conc 32.1 g/gl (32-36); Mean Corpuscular Hgb 27.8 pg (27.0-32.0); Mean Corpuscular Volume 86.6 fL (81-99); Mean Platelet Vol. 9.8 fl (6.2-12.0); Platelet Count 120 K/mm3 (150-450); RBC Distribution Width CV 15.4 % (11.6-14.6); RBC Distribution Width SD 48.2 fl (35.1-43.9); Red Blood Count 4.03 M/mm3 (4.2-5.4); White Blood Count 3.2 K/mm3 (4.4-11.0)
[2018-09-02 08:01] LABS: Scan Indicated on CBC? Y/N NO
--- NOTE | 2018-09-02 08:02 | NURSING ---
0615: pt noted to be very lethargic this am. vitals repeated and noted wnl. po meds held this am.
[2018-09-02 08:27] LABS: Anion Gap 9 (5-15); BUN 43 mg/dL (7-18); BUN/Creat Ratio 21.4 RATIO (10-20); Chloride 115 mmol/L (98-107); Creatinine, Serum 2.01 mg/dL (0.55-1.02); EST Glomerular Filtration Rate 25 mL/min (>60); Est Glom Filt Rate - Afr Amer 31 mL/min (>60); Estimated Creatinine Clearance 17.07 ml/min; Glucose 85 mg/dL (74-106); Magnesium 2.1 mg/dL (1.6-2.6); Potassium 4.1 mmol/L (3.5-5.1); Sodium Level 146 mmol/L (136-145)
[2018-09-02 10:11] LABS: Bedside Glucose 78 mg/dL (70-110)
[2018-09-02] MEDS: Acyclovir 800 MG Tablet PO ×2 (14:41→21:50)
[2018-09-02] MEDS: Acetaminophen 325 MG Tablet 650 MG PO (21:48)
[2018-09-02] MEDS: Escitalopram Oxalate 10 MG Tablet PO (21:50)
--- NOTE | 2018-09-02 23:45 | NURSING ---
Addendum entered by Megan Montero 09/03/18 00:13: Tele strip did show p waves, some artifact noted. Apical regular on auscultation. Block present that was not noted on 1999 tele strip. Pt does have hx of a block however. Original Note: Pulmonary called for EKG d/t pt bradycardic and EKG not showing p waves. Pt denies chest pain. is diaphoretic.
[2018-09-03] VITALS (10 sets, daily range): BP systolic 140–175; BP diastolic 49–61; PULSE 47–74; RESP 16–18; TEMP 36.3–37.3; O2SAT 95–99
--- NOTE | 2018-09-03 00:10 | NURSING ---
Dr Barroso made aware pt had diaphoresis with bradycardic episode and tele change, block noted that did not appear on tele at 1999. Called for EKG but unchanged from previous. Dr. Barroso requests pic of ekg to be sent to her and let her know if bradycardia reoccurs.
[2018-09-03] MEDS: 0.9% Normal Saline 1,000 ML 125 ML IV (01:17)
[2018-09-03] MEDS: Heparin Injection (Vial) 5,000 UNIT/ML VIAL 5000 UNIT SC ×3 (05:14→21:04)
[2018-09-03 06:58] LABS: Hematocrit 38.1 % (37-47); Mean Corp Hgb Conc 31.5 g/gl (32-36); Mean Corpuscular Hgb 27.5 pg (27.0-32.0); Mean Corpuscular Volume 87.4 fL (81-99); Mean Platelet Vol. 10.3 fl (6.2-12.0); Platelet Count 127 K/mm3 (150-450); RBC Distribution Width CV 15.6 % (11.6-14.6); RBC Distribution Width SD 48.9 fl (35.1-43.9); Red Blood Count 4.36 M/mm3 (4.2-5.4); White Blood Count 3.1 K/mm3 (4.4-11.0)
[2018-09-03 07:01] LABS: Scan Indicated on CBC? Y/N NO
[2018-09-03 07:20] LABS: Anion Gap 11 (5-15); BUN 29 mg/dL (7-18); BUN/Creat Ratio 21.8 RATIO (10-20); Chloride 116 mmol/L (98-107); Creatinine, Serum 1.33 mg/dL (0.55-1.02); EST Glomerular Filtration Rate 41 mL/min (>60); Est Glom Filt Rate - Afr Amer 49 mL/min (>60); Estimated Creatinine Clearance 25.79 ml/min; Glucose 87 mg/dL (74-106); Sodium Level 150 mmol/L (136-145)
--- NOTE | 2018-09-03 07:32 | PN_ITS ---
Patient Problems: Active and Suspected Problems Encephalopathy (Acute) Acute kidney injury (Acute) Subjective: Patient kidney function is improved however she is developed hyponatremia. Her normal saline discontinued patient started on D5 half-normal saline with every 4 monitoring of electrolytes ordered. Patient still remains sleepy but is able to answer simple questions. Per nursing staff patient response more to her usual caretakers from her [facility]. Objective: GENERAL: Sleepy but arousable HEENT: Atraumatic; EYES; Anicteric, NECK; supple, normal thyroid, RESPIRATORY: Diminished to auscultation bilaterally, CARDIOVASCULAR: Regular S1 S2, GI: soft, non-tender, normoactive bowel sounds, : No Renal angle tenderness; EXTREMITIES: No edema, no clubbing, no cyanosis. NEURO: Unable to assess due to patient lethargy SKIN: No Rash PSYCH; lethargic Vitals/I&O's: Vital Signs Temp Pulse Resp BP Pulse Ox 99.2 F H 54 L 16 147/49 H 95 09/03/18 04:41 09/03/18 04:41 09/03/18 04:41 09/03/18 04:41 09/03/18 04:41 Oxygen Flow Rate (L/min) 76 Oxygen Delivery Method Room Air Weight: 54 kg Body Mass Index (BMI) 21.7 Finger Stick Blood Glucose 172 Intake and Output for Last 24 Hours 09/01/18 09/02/18 09/03/18 23:59 23:59 23:59 Intake Total 3224 / 3224 3375 / 3375 1267 / 1267 Balance 3224 / 3224 3375 / 3375 1267 / 1267 Microbiology Past 72 Hours 08/31/18 23:35 Urine, Clean Catch Urine Culture - Preliminary Culture exhibits no growth. Laboratory Results 09/02/18 07:44: Sodium 146 H, Potassium 4.1, Chloride 115 H, Carbon Dioxide 22.0, Anion Gap 9, BUN 43 H, Creatinine 2.01 H, Estim Creat Clear Calc 17.07, Est GFR (MDRD) Af Amer 31 L, Est GFR (MDRD) Non-Af 25 L, BUN/Creatinine Ratio 21.4 H, Glucose 85, Calcium 8.0 L, Magnesium 2.1 09/02/18 07:44: WBC 3.2 L, RBC 4.03 L, Hgb 11.2 L, Hct 34.9 L, MCV 86.6, MCH 27.8, MCHC 32.1, RDW 15.4 H, RDW Differential 48.2 H, Plt Count 120 L, MPV 9.8 09/02/18 10:06: POC Glucose 78 09/03/18 06:04: WBC 3.1 L, RBC 4.36, Hgb 12.0, Hct 38.1, MCV 87.4, MCH 27.5, MCHC 31.5 L, RDW 15.6 H, RDW Differential 48.9 H, Plt Count 127 L, MPV 10.3 09/03/18 06:04: Sodium 150 H, Potassium 4.0, Chloride 116 H, Carbon Dioxide 23.0, Anion Gap 11, BUN 29 H, Creatinine 1.33 H, Estim Creat Clear Calc 25.79, Est GFR (MDRD) Af Amer 49 L, Est GFR (MDRD) Non-Af 41 L, BUN/Creatinine Ratio 21.8 H, Glucose 87, Calcium 8.0 L Current Medications Acetaminophen (Tylenol) 650 mg PO Q6H PRN PRN PRN Reason: Fever, headache, pain Last Admin: 09/02/18 21:48 Dose: 650 mg Acyclovir (Zovirax) 800 mg PO TID [facility] Last Admin: 09/03/18 05:14 Dose: Not Given [facility]ir[facility], [facility]) [facility] Last Admin: 09/02/18 14:38 Dose: Not Given Escitalopram Oxalate (Lexapro) 10 mg PO QHS [facility] Last Admin: 09/02/18 21:50 Dose: 10 mg Folic Acid (Folic Acid) 0.5 mg PO DAILY@0800 [facility] Last Admin: 09/02/18 10:03 Dose: Not Given Heparin Sodium (Porcine) (Heparin Na) 5,000 unit SC Q8 [facility] Last Admin: 09/03/18 05:14 Dose: 5,000 unit Hydroxychloroquine Sulfate (Plaquenil) [facility] Last Admin: 09/02/18 14:39 Dose: Not Given Dextrose/Sodium Chloride () 1,000 mls @ 125 mls/hr IV .Q8H [facility] Magnesium Hydroxide (Milk Of Magnesia) 30 ml PO DAILY PRN PRN PRN Reason: Constipation Multivitamins/Minerals (Multivitamin With Minerals) 1 tablet PO DAILY@0800 [facility] Last Admin: 09/02/18 10:03 Dose: Not Given Nutritional Formula (Lactose Free) (Ensure Enlive) 120 ml PO 4X/DAY [facility] Last Admin: 09/02/18 21:50 Dose: 120 ml Ondansetron HCl (Zofran) 4 mg IV Q6H PRN PRN PRN Reason: NAUSEA/VOMITING Last Admin: 09/01/18 17:08 Dose: 4 mg Sodium Chloride () 5 - 15 ml IV UD PRN PRN Reason: SALINE FLUSH Last Admin: 09/01/18 17:08 Dose: 10 ml Medical Necessity - Tobacco Use Smoking Status: Former smoker Assessment/Plan All Active Problems Encephalopathy (Acute) Acute kidney injury (Acute) Patient is an 83-year-old lady with history of underlying dementia was brought to the ED by the family on account of increasing lethargy. Patient assessment on admission was consistent with acute metabolic encephalopathy from acute kidney injury. Admitted to regular nursing floor for further management 1. Acute metabolic encephalopathy secondary to acute kidney injury. Management as discussed below 2. Acute kidney injury secondary to decreased oral intake and dehydration. Patient baseline creatinine 0.9 creatinine on admission 3.61. Admitted to regular nursing floor where patient is being resuscitated with IV fluids. Patient kidney function continues to improve 3. Hyponatremia secondary to hypovolemic hyponatremia on IV fluids with monitoring of electrolyte hyponatremia resolved 4. Hypernatremia following resuscitation with saline which has since been discontinued patient started on D5 half normal saline 5. CAD with previous CABG and subsequent stent placement patient remains stable 6. Hypertension patient blood pressure remains stable 7. Dyslipidemia per history not on any statin therapy 8. Inflammatory polyarthritis patient is on Plaquenil at home 9. Depression with anxiety 10. DVT prophylaxis: Subcu heparin. Code Visit Inpatient E&M: 03255 Subs Hosp L3
[2018-09-03] MEDS: Dext 5%-0.45% NS 1,000 ML 125 ML IV ×3 (08:30→22:57)
[2018-09-03 11:24] LABS: Anion Gap 9 (5-15); BUN 25 mg/dL (7-18); BUN/Creat Ratio 19.1 RATIO (10-20); Calcium,Total 7.8 mg/dL (8.5-10.1); Chloride 113 mmol/L (98-107); Creatinine, Serum 1.31 mg/dL (0.55-1.02); EST Glomerular Filtration Rate 41 mL/min (>60); Est Glom Filt Rate - Afr Amer 50 mL/min (>60); Estimated Creatinine Clearance 26.19 ml/min; Glucose 159 mg/dL (74-106); Potassium 3.8 mmol/L (3.5-5.1); Sodium Level 146 mmol/L (136-145)
[2018-09-03] MEDS: Acyclovir 800 MG Tablet PO ×2 (14:54→21:04)
[2018-09-03] MEDS: Escitalopram Oxalate 10 MG Tablet PO (21:04)
[2018-09-04] VITALS (9 sets, daily range): BP systolic 121–156; BP diastolic 56–69; PULSE 59–71; RESP 16–18; TEMP 36.6–37.2; O2SAT 96–98
[2018-09-04] MEDS: Acyclovir 800 MG Tablet PO ×5 (05:02→21:56)
[2018-09-04] MEDS: Heparin Injection (Vial) 5,000 UNIT/ML VIAL 5000 UNIT SC ×3 (05:02→21:56)
[2018-09-04 05:56] LABS: Hematocrit 38.1 % (37-47); Hemoglobin 12.5 g/dl (12.0-15.0); Mean Corp Hgb Conc 32.8 g/gl (32-36); Mean Corpuscular Hgb 28.4 pg (27.0-32.0); Mean Corpuscular Volume 86.6 fL (81-99); Mean Platelet Vol. 10.1 fl (6.2-12.0); Platelet Count 122 K/mm3 (150-450); RBC Distribution Width CV 15.2 % (11.6-14.6); RBC Distribution Width SD 46.1 fl (35.1-43.9); White Blood Count 3.9 K/mm3 (4.4-11.0)
[2018-09-04 06:02] LABS: Scan Indicated on CBC? Y/N NO
[2018-09-04 06:27] LABS: Anion Gap 12 (5-15); BUN 14 mg/dL (7-18); BUN/Creat Ratio 14.7 RATIO (10-20); Calcium,Total 7.6 mg/dL (8.5-10.1); Chloride 112 mmol/L (98-107); Creatinine, Serum 0.95 mg/dL (0.55-1.02); EST Glomerular Filtration Rate 60 mL/min (>60); Est Glom Filt Rate - Afr Amer 72 mL/min (>60); Estimated Creatinine Clearance 36.11 ml/min; Glucose 111 mg/dL (74-106); Potassium 3.3 mmol/L (3.5-5.1); Sodium Level 143 mmol/L (136-145)
--- NOTE | 2018-09-04 10:11 | CASEMGMT ---
Social Work Note Per welding tester questions, pt has completed advanced directives. SW checked pt's chart, no advanced directives on file. XANDER met with pt. Pt's present in room. Pt unable to answer this worker's questions so pt's spoke with this worker. XANDER updated Jamarcus that [facility] currently doesn't have copies of advanced directives for pt. XANDER asked if Jamarcus could bring in copies to [facility] and Jamarcus states I will work on it. Delaney Dhaliwal MOTORCYCLE BUILDER, FOUNDATION COORDINATOR
[2018-09-04] MEDS: Dext 5%-0.45% NS 1,000 ML 125 ML IV ×2 (10:25→19:10)
[2018-09-04] MEDS: Aspirin 81 MG TAB.CHEW PO (10:27)
[2018-09-04] MEDS: Folic Acid 1 MG Tablet 0.5 MG PO (10:27)
[2018-09-04] MEDS: Multivitamins,Ther W-Minerals Tablet 1 TABLET PO (10:28)
[2018-09-04] MEDS: Hydroxychloroquine 200 MG Tablet PO (10:28)
--- NOTE | 2018-09-04 11:04 | DCINST_ITS ---
- Discharge Diagnoses Current Active Problems: Current Active and Chronic Problems Encephalopathy (Acute) Acute kidney injury (Acute) You will use the following diet at home:: Regular Your food should be the consistency of: Regular Your liquids should be the consistency of: Regular/Thin Weight Bearing Status: Weight bearing as tolerated Call your doctor if you observe: Fever of 101 or Higher Allergies/Adverse Reactions: Allergies Penicillins Allergy (Verified 08/31/18 22:19) Rash erythromycin base [Erythromycin Base] Adverse Reaction (Verified 08/31/18 22:19) Nausea/Vom/Diarrhea Sulfa (Sulfonamide Antibiotics) Adverse Reaction (Verified 08/31/18 22:19) Nausea/Vom/Diarrhea Medications to take at Discharge Aspirin 81 mg PO DAILY 07/26/18 Calcium Carbonate/Vitamin D3 [Oyster Shell 500-Vit D3 200 Tb] 1 each PO BID 07/26/18 Cholecalciferol (VIT D3) [Vitamin D3] 1,000 unit PO TUTHSA 07/26/18 Cholecalciferol (VIT D3) [Vitamin D3] 1,500 unit PO SUMOWEFR 07/26/18 Escitalopram Oxalate 10 mg PO QHS 07/26/18 Folic Acid 0.4 mg PO DAILY 07/26/18 Hydroxychloroquine [Plaquenil] 300 mg PO DAILYCM 07/26/18 Multivitamin/Iron/Folic Acid [Centrum Adults Tablet] 1 each PO DAILY 07/26/18 Valacyclovir HCl [Valacyclovir] 1,000 mg PO TID 08/31/18 Acetaminophen [Tylenol Tablet] 500 mg PO Q6H PRN PRN tablet 09/04/18 Ensure Enlive 120 ml PO 4X/DAY #30 liquid 09/04/18 The following prescriptions were given: Ensure Enlive 120 ml PO 4X/DAY #30 liquid Primary Care Physician: Jacobo Kearney MD [Primary Care Provider] - Within 2 Weeks Test Results: Test results from this visit will be discussed in further detail at your follow- up appointment, if applicable. Proposed Discharge Date: 09/04/18
--- NOTE | 2018-09-04 11:04 | PCM.DC.SUM ---
Discharge Date and Diagnosis - Problem List Patient Problems: Active and Suspected Problems Encephalopathy (Acute) Acute kidney injury (Acute) Date of Admission: 08/31/18 Date of Discharge: 09/04/18 - Primary Discharge Diagnosis Active and Suspected Problems Encephalopathy (Acute) Acute kidney injury (Acute) - Secondary Discharge Diagnosis Chronic Problems Inflammatory polyarthritis (Chronic) Hypertension (Chronic) Obesity (BMI 30.0-34.9) (Chronic) Hyperlipidemia (Chronic) CAD (coronary artery disease) (Chronic) Multiple stents Anxiety and depression (Chronic) Hospital Course and Treatment Imaging Results: Clinical Impression(s) from Imaging Studies Brain CT 08/31/18 22:29 IMPRESSION: No acute intracranial findings. Negative for hemorrhage, hematoma or mass density. Moderately advanced involutional changes stable from prior exam. Electronically Signed: Eden Cordoba MD at 23:05 EST , Service support , Chest X-Ray 08/31/18 22:46 IMPRESSION: No acute cardiopulmonary findings or changes. Negative for major consolidation, focal atelectasis, pleural effusion or cardiomegaly. Status post prior midline sternotomy. Electronically Signed: Eden Cordoba MD at 23:02 EST , Service support , Operations: None Procedures: None Summary of Care Provided: The patient is a 83 year old F resents with change in mental status from home. Patient was found to be lethargic and weak with decreased oral intake. Patient was found to have acute kidney injury with a creatinine of 3.6. Patient was started on IV fluids and her right knee and today has normalized at 0.95. Presumably, the acute kidney injury was likely related with prerenal azotemia due to decreased oral intake. Patient was slightly hyponatremic upon arrival that is also likely related with her hypovolemia. Patient was confused and was encephalopathic. [place] to be at least metabolic if not a combination of toxic and metabolic. Metabolic being the dehydration. No other etiologies from metabolic perspective can explain her confusion other than her being dehydrated on top of the patient's underlying debility. May be a toxic component being that she is on clonazepam and Risperdal. Those were held. Patient's mental status has improved. Patient is very hypophonic but that is likely at baseline. Patient will continue to hold her clonazepam and Risperdal. Patient had no issues with withdrawal while she was here in the hospital from the benzodiazepine. Patient will return home, where she has 24-hour assistance with aids. [] Patient Problems: Active and Suspected Problems Encephalopathy (Acute) Acute kidney injury (Acute) - Physical Exam General: Alert, No apparent distress, - - hypophonic HEENT: Atraumatic, Normocephalic Neck: No Nodes, Thyroid Normal Size and Texture Lungs: Clear to auscultation, Normal air movement, No rhonchi, No wheeze Cardiovascular: Regular rate, Regular Rhythm, Normal S1, Normal S2, No murmurs Abdomen: Bowel Sounds Present, Soft, Non Tender, Non-Distended, No Hepato-splenomegaly Extremities: No edema, No Calf Tenderness Musculoskeletal: Cachexia, Muscle Wasting Vital Signs Temp Pulse Resp BP Pulse Ox 36.9 C 60 18 135/64 H 96 09/04/18 10:39 09/04/18 10:39 09/04/18 10:39 09/04/18 10:39 09/04/18 10:39 Oxygen Flow Rate (L/min) 76 Oxygen Delivery Method Room Air Weight: 54 kg Body Mass Index (BMI) 21.7 Finger Stick Blood Glucose 172 Intake and Output for Last 24 Hours 09/02/18 09/03/18 09/04/18 23:59 23:59 23:59 Intake Total 3375 / 3375 3450 / 3450 706 / 706 Balance 3375 / 3375 3450 / 3450 706 / 706 Microbiology Past 72 Hours 08/31/18 23:35 Urine Culture - Final Urine, Clean Catch Culture exhibits no growth. Laboratory Tests Past 24 Hrs 09/03/18 09/04/18 09/04/18 10:46 05:18 05:18 WBC 3.9 L RBC 4.40 Hgb 12.5 Hct 38.1 MCV 86.6 MCH 28.4 MCHC 32.8 RDW 15.2 H RDW Differential 46.1 H Plt Count 122 L MPV 10.1 Sodium 146 H 143 Potassium 3.8 3.3 L Chloride 113 H 112 H Carbon Dioxide 24.0 19.0 L Anion Gap 9 12 BUN 25 H 14 Creatinine 1.31 H 0.95 Estim Creat Clear Calc 26.19 36.11 Est GFR (MDRD) Af Amer 50 L 72 Est GFR (MDRD) Non-Af 41 L 60 BUN/Creatinine Ratio 19.1 14.7 Glucose 159 H 111 H Calcium 7.8 L 7.6 L Discharge Diet: No Restrictions Discharge Activity: Return to Normal Activity Weight Bearing Status: Weight bearing as tolerated Call your doctor if you observe: Fever of 101 or Higher Home Medications: Medications to take at Discharge Aspirin 81 mg PO DAILY 07/26/18 Calcium Carbonate/Vitamin D3 [Oyster Shell 500-Vit D3 200 Tb] 1 each PO BID 07/26/18 Cholecalciferol (VIT D3) [Vitamin D3] 1,000 unit PO TUTHSA 07/26/18 Cholecalciferol (VIT D3) [Vitamin D3] 1,500 unit PO SUMOWEFR 07/26/18 Escitalopram Oxalate 10 mg PO QHS 07/26/18 Folic Acid 0.4 mg PO DAILY 07/26/18 Hydroxychloroquine [Plaquenil] 300 mg PO DAILYCM 07/26/18 Multivitamin/Iron/Folic Acid [Centrum Adults Tablet] 1 each PO DAILY 07/26/18 Valacyclovir HCl [Valacyclovir] 1,000 mg PO TID 08/31/18 Acetaminophen [Tylenol Tablet] 500 mg PO Q6H PRN PRN tablet 09/04/18 Ensure Enlive 120 ml PO 4X/DAY #30 liquid 09/04/18 Following Prescrptions Were Given to Patient: Ensure Enlive 120 ml PO 4X/DAY #30 liquid Primary Care Physician: Jacobo Kearney MD [Primary Care Provider] - Within 2 Weeks Disposition: Home Minutes spent on discharge:: 32 Patient Condition:: Fair Medical Necessity - Tobacco Use Smoking Status: Former smoker Meaningful Use Info Meaningful Use Diagnoses (Choose all that apply): None applicable Code Visit Inpatient E&M: 06042 Disch Hosp
--- NOTE | 2018-09-04 11:08 | DS.PCM_ITS ---
Discharge Date and Diagnosis - Problem List Patient Problems: Active and Suspected Problems Encephalopathy (Acute) Acute kidney injury (Acute) Date of Admission: 08/31/18 Date of Discharge: 09/04/18 - Primary Discharge Diagnosis Active and Suspected Problems Encephalopathy (Acute) Acute kidney injury (Acute) - Secondary Discharge Diagnosis Chronic Problems Inflammatory polyarthritis (Chronic) Hypertension (Chronic) Obesity (BMI 30.0-34.9) (Chronic) Hyperlipidemia (Chronic) CAD (coronary artery disease) (Chronic) Multiple stents Anxiety and depression (Chronic) Hospital Course and Treatment Imaging Results: Clinical Impression(s) from Imaging Studies Brain CT 08/31/18 22:29 IMPRESSION: No acute intracranial findings. Negative for hemorrhage, hematoma or mass density. Moderately advanced involutional changes stable from prior exam. Electronically Signed: Eden Cordoba MD at 23:05 EST , Service support , Chest X-Ray 08/31/18 22:46 IMPRESSION: No acute cardiopulmonary findings or changes. Negative for major consolidation, focal atelectasis, pleural effusion or cardiomegaly. Status post prior midline sternotomy. Electronically Signed: Eden Cordoba MD at 23:02 EST , Service support , Operations: None Procedures: None Summary of Care Provided: The patient is a 83 year old F resents with change in mental status from home. Patient was found to be lethargic and weak with decreased oral intake. Patient was found to have acute kidney injury with a creatinine of 3.6. Patient was started on IV fluids and her right knee and today has normalized at 0.95. Presumably, the acute kidney injury was likely related with prerenal azotemia due to decreased oral intake. Patient was slightly hyponatremic upon arrival that is also likely related with her hypovolemia. Patient was confused and was encephalopathic. [place] to be at least metabolic if not a combination of toxic and metabolic. Metabolic being the dehydration. No other etiologies from metabolic perspective can explain her confusion other than her being dehydrated on top of the patient's underlying debility. May be a toxic component being that she is on clonazepam and Risperdal. Those were held. Patient's mental status has improved. Patient is very hypophonic but that is likely at baseline. Patient will continue to hold her clonazepam and Risperdal. Patient had no issues with withdrawal while she was here in the hospital from the benzodiazepine. Patient will return home, where she has 24-hour assistance with aids. [] Patient Problems: Active and Suspected Problems Encephalopathy (Acute) Acute kidney injury (Acute) - Physical Exam General: Alert, No apparent distress, - - hypophonic HEENT: Atraumatic, Normocephalic Neck: No Nodes, Thyroid Normal Size and Texture Lungs: Clear to auscultation, Normal air movement, No rhonchi, No wheeze Cardiovascular: Regular rate, Regular Rhythm, Normal S1, Normal S2, No murmurs Abdomen: Bowel Sounds Present, Soft, Non Tender, Non-Distended, No Hepato- splenomegaly Extremities: No edema, No Calf Tenderness Musculoskeletal: Cachexia, Muscle Wasting Vital Signs Temp Pulse Resp BP Pulse Ox 36.9 C 60 18 135/64 H 96 09/04/18 10:39 09/04/18 10:39 09/04/18 10:39 09/04/18 10:39 09/04/18 10:39 Oxygen Flow Rate (L/min) 76 Oxygen Delivery Method Room Air Weight: 54 kg Body Mass Index (BMI) 21.7 Finger Stick Blood Glucose 172 Intake and Output for Last 24 Hours 09/02/18 09/03/18 09/04/18 23:59 23:59 23:59 Intake Total 3375 / 3375 3450 / 3450 706 / 706 Balance 3375 / 3375 3450 / 3450 706 / 706 Microbiology Past 72 Hours 08/31/18 23:35 Urine Culture - Final Urine, Clean Catch Culture exhibits no growth. Laboratory Tests Past 24 Hrs 09/03/18 09/04/18 09/04/18 10:46 05:18 05:18 WBC 3.9 L RBC 4.40 Hgb 12.5 Hct 38.1 MCV 86.6 MCH 28.4 MCHC 32.8 RDW 15.2 H RDW Differential 46.1 H Plt Count 122 L MPV 10.1 Sodium 146 H 143 Potassium 3.8 3.3 L Chloride 113 H 112 H Carbon Dioxide 24.0 19.0 L Anion Gap 9 12 BUN 25 H 14 Creatinine 1.31 H 0.95 Estim Creat Clear Calc 26.19 36.11 Est GFR (MDRD) Af Amer 50 L 72 Est GFR (MDRD) Non-Af 41 L 60 BUN/Creatinine Ratio 19.1 14.7 Glucose 159 H 111 H Calcium 7.8 L 7.6 L Discharge Diet: No Restrictions Discharge Activity: Return to Normal Activity Weight Bearing Status: Weight bearing as tolerated Call your doctor if you observe: Fever of 101 or Higher Home Medications: Medications to take at Discharge Aspirin 81 mg PO DAILY 07/26/18 Calcium Carbonate/Vitamin D3 [Oyster Shell 500-Vit D3 200 Tb] 1 each PO BID 07/26/18 Cholecalciferol (VIT D3) [Vitamin D3] 1,000 unit PO TUTHSA 07/26/18 Cholecalciferol (VIT D3) [Vitamin D3] 1,500 unit PO SUMOWEFR 07/26/18 Escitalopram Oxalate 10 mg PO QHS 07/26/18 Folic Acid 0.4 mg PO DAILY 07/26/18 Hydroxychloroquine [Plaquenil] 300 mg PO DAILYCM 07/26/18 Multivitamin/Iron/Folic Acid [Centrum Adults Tablet] 1 each PO DAILY 07/26/18 Valacyclovir HCl [Valacyclovir] 1,000 mg PO TID 08/31/18 Acetaminophen [Tylenol Tablet] 500 mg PO Q6H PRN PRN tablet 09/04/18 Ensure Enlive 120 ml PO 4X/DAY #30 liquid 09/04/18 Following Prescrptions Were Given to Patient: Ensure Enlive 120 ml PO 4X/DAY #30 liquid Primary Care Physician: Jacobo Kearney MD [Primary Care Provider] - Within 2 Weeks Disposition: Home Minutes spent on discharge:: 32 Patient Condition:: Fair Medical Necessity - Tobacco Use Smoking Status: Former smoker Meaningful Use Info Meaningful Use Diagnoses (Choose all that apply): None applicable Code Visit Inpatient E&M: 07533 Disch Hosp
--- NOTE | 2018-09-04 13:00 | CASEMGMT ---
Social Work Note SW received update that physician is cancelling discharge today and would like a Palliative Care Referral made. SW placed a call to [facility] and spoke with Marie and provided referral. SW faxed referral to [facility]. Delaney Dhaliwal EDUCATION REP, AIRWORTHINESS SAFETY INSPECTOR
--- NOTE | 2018-09-04 15:52 | CASEMGMT ---
Social Work Note SW spoke with Abel at [facility] who states pt's is refusing to meet with [facility] to discuss Palliative Care. Charge nurse updated. Per Charge nurse she will update physician. Delaney Dhaliwal BAIL BOND AGENT, READING PROFESSOR
[2018-09-04] MEDS: Acetaminophen 325 MG Tablet 650 MG PO (19:12)
[2018-09-04] MEDS: Escitalopram Oxalate 10 MG Tablet PO (21:55)
[2018-09-05 02:00] VITALS: PULSE 59
[2018-09-05 03:00] VITALS: BP 139/55; PULSE 61; PULSE 64; RESP 16; TEMP 36.9; O2SAT 96
[2018-09-05] MEDS: Dext 5%-0.45% NS 1,000 ML 125 ML IV (04:28)
[2018-09-05 06:41] LABS: Anion Gap 10 (5-15); BUN 10 mg/dL (7-18); BUN/Creat Ratio 11.5 RATIO (10-20); Calcium,Total 7.4 mg/dL (8.5-10.1); Chloride 112 mmol/L (98-107); Creatinine, Serum 0.87 mg/dL (0.55-1.02); EST Glomerular Filtration Rate 66 mL/min (>60); Est Glom Filt Rate - Afr Amer 80 mL/min (>60); Estimated Creatinine Clearance 39.43 ml/min; Glucose 111 mg/dL (74-106); Potassium 2.9 mmol/L (3.5-5.1); Sodium Level 146 mmol/L (136-145)
[2018-09-05] MEDS: Heparin Injection (Vial) 5,000 UNIT/ML VIAL 5000 UNIT SC ×2 (07:00→13:40)
[2018-09-05] MEDS: Menthol/Lanolin/Calamine/Znox 113 GM Tube 1 APPLIC TOPICAL ×2 (07:00→12:50)
[2018-09-05 07:37] VITALS: PULSE 56
[2018-09-05 08:44] LABS: Magnesium 1.3 mg/dL (1.6-2.6)
[2018-09-05 09:00] VITALS: BP 145/79; PULSE 67; RESP 18; TEMP 37.2; O2SAT 99
[2018-09-05] MEDS: 0.9% NaCl Peripheral Flush Adult/Peds IV ×2 (10:21→10:22)
[2018-09-05] MEDS: Potassium Chloride 10mEq/100mL 10 MEQ/100 ML IV.SOLN. 100 MEQ IV BOLUS ×4 (11:10→14:50)
[2018-09-05] MEDS: Acyclovir 800 MG Tablet PO ×2 (11:16→13:40)
[2018-09-05] MEDS: Folic Acid 1 MG Tablet 0.5 MG PO (11:17)
[2018-09-05] MEDS: Aspirin 81 MG TAB.CHEW PO (11:18)
[2018-09-05] MEDS: Multivitamins,Ther W-Minerals Tablet 1 TABLET PO (11:18)
[2018-09-05] MEDS: Hydroxychloroquine 200 MG Tablet PO (11:19)
--- NOTE | 2018-09-05 11:27 | PCM.CONS.GEN ---
Reason for Consult Date of Consultation: 09/05/18 Reason for Consultation: ? movement disorder History of Present Illness: The patient is a 83 year old F admitted for encephalopathy due to dehydration, now improved. family reports until 2 months ago was movingok however starting about one year ago became abnormal, family notes confusion and slowed movements about one year ago. voice became soft and high pitched several months ago as well. family not aware of visual hallucinations. some falls more recently also severe stress associated with of daughter. pt currently unable to give history. apparently has required home health aide for 9-10 months[address] hasnt driven for years by choice. no issues per . Past Medical History Past Medical History (Chronic Problems): Chronic Problems Inflammatory polyarthritis (Chronic) Hypertension (Chronic) Obesity (BMI 30.0-34.9) (Chronic) Hyperlipidemia (Chronic) CAD (coronary artery disease) (Chronic) Multiple stents Anxiety and depression (Chronic) Allergies Penicillins Allergy (Verified 08/31/18 22:19) Rash erythromycin base [Erythromycin Base] Adverse Reaction (Verified 08/31/18 22:19) Nausea/Vom/Diarrhea Sulfa (Sulfonamide Antibiotics) Adverse Reaction (Verified 08/31/18 22:19) Nausea/Vom/Diarrhea Home Medications: Ambulatory Orders Medication Instructions Recorded Aspirin 81 mg PO DAILY 07/26/18 Calcium Carbonate/Vitamin D3 1 each PO BID 07/26/18 [Oyster Shell 500-Vit D3 200 Tb] Cholecalciferol (VIT D3) [Vitamin 1,000 unit PO TUTHSA 07/26/18 D3] Cholecalciferol (VIT D3) [Vitamin 1,500 unit PO SUMOWEFR 07/26/18 D3] Escitalopram Oxalate 10 mg PO QHS 07/26/18 Folic Acid 0.4 mg PO DAILY 07/26/18 Hydroxychloroquine [Plaquenil] 300 mg PO DAILYCM 07/26/18 Multivitamin/Iron/Folic Acid 1 each PO DAILY 07/26/18 [Centrum Adults Tablet] Valacyclovir HCl [Valacyclovir] 1,000 mg PO TID 08/31/18 Acetaminophen [Tylenol Tablet] 500 mg PO Q6H PRN PRN tablet 09/04/18 Ensure Enlive 120 ml PO 4X/DAY #30 liquid 09/04/18 Surgical History: appendectomy, coronary bypass surgery, hysterectomy, - - CABG x 1, PCI x 2, hysterectomy, appendectomy. Psychiatric History: No pertinent psych hx NUTRITION SERVICES AIDE History: No pertinent NUTRITION SERVICES AIDE history Smoking Status: Former smoker Alcohol: None Drugs: None - *Family History Maternal History Items: Heart Disease, Hypertension Paternal History Items: Heart Disease, Hypertension Patient Problems: Active and Suspected Problems Encephalopathy (Acute) Acute kidney injury (Acute) Objective: alert, oriented to person, not place language intact but sparse masked facies perrla, eomi, left pupil surgical +non-extinction of glabbelar blink +myersons +grasp bilat +cogwheeling hypophonic bradykinetic - Physical Exam Vital Signs Temp Pulse Resp BP Pulse Ox 36.9 C 56 L 16 139/55 H 96 09/05/18 03:00 09/05/18 07:37 09/05/18 03:00 09/05/18 03:00 09/05/18 03:00 Oxygen Flow Rate (L/min) 76 Oxygen Delivery Method Room Air Weight: 54 kg Body Mass Index (BMI) 21.7 Finger Stick Blood Glucose 172 Intake and Output for Last 24 Hours 09/03/18 09/04/18 09/05/18 23:59 23:59 23:59 Intake Total 3450 / 3450 2916 / 2916 1085 / 1085 Balance 3450 / 3450 2916 / 2916 1085 / 1085 Microbiology Past 72 Hours 08/31/18 23:35 Urine Culture - Final Urine, Clean Catch Culture exhibits no growth. Laboratory Tests Past 24 Hrs 09/05/18 09/05/18 06:02 06:02 Sodium 146 H Potassium 2.9 L Chloride 112 H Carbon Dioxide 24.0 Anion Gap 10 BUN 10 Creatinine 0.87 Estim Creat Clear Calc 39.43 Est GFR (MDRD) Af Amer 80 Est GFR (MDRD) Non-Af 66 BUN/Creatinine Ratio 11.5 Glucose 111 H Calcium 7.4 L Magnesium 1.3 L Current Home Med List Medication Instructions Recorded Confirmed Type Aspirin 81 mg PO DAILY 07/26/18 09/01/18 History Calcium Carbonate/Vitamin D3 1 each PO BID 07/26/18 09/01/18 History [Oyster Shell 500-Vit D3 200 Tb] Cholecalciferol (VIT D3) [Vitamin 1,000 unit PO TUTHSA 07/26/18 09/01/18 History D3] Cholecalciferol (VIT D3) [Vitamin 1,500 unit PO SUMOWEFR 07/26/18 09/01/18 History D3] Escitalopram Oxalate 10 mg PO QHS 07/26/18 09/01/18 History Folic Acid 0.4 mg PO DAILY 07/26/18 09/01/18 History Hydroxychloroquine [Plaquenil] 300 mg PO DAILYCM 07/26/18 09/01/18 History Multivitamin/Iron/Folic Acid 1 each PO DAILY 07/26/18 09/01/18 History [Centrum Adults Tablet] Valacyclovir HCl [Valacyclovir] 1,000 mg PO TID 08/31/18 09/01/18 History Acetaminophen [Tylenol Tablet] 500 mg PO Q6H PRN PRN tablet 09/04/18 Rx Ensure Enlive 120 ml PO 4X/DAY #30 liquid 09/04/18 Rx Current Medications Generic Name Dose Route Start Last Admin Trade Name Freq PRN Reason Stop Dose Admin Acetaminophen 650 mg 09/01/18 00:52 09/04/18 19:12 Tylenol PO 650 mg Q6H PRN PRN Administration Fever, headache, pain Acyclovir 800 mg 09/04/18 10:00 09/05/18 11:16 Zovirax PO 800 mg 5X/DAY FELIX Administration Aspirin 81 mg 09/01/18 08:00 09/05/18 11:18 Aspirin, Baby PO 81 mg DAILYCM [facility] Administration Calamine/Phenol 1 applic 09/05/18 06:00 09/05/18 07:00 Calmoseptine Ointment TOPICAL 1 applicatio TID [facility] Administration Protocol Escitalopram Oxalate 10 mg 09/01/18 22:00 09/04/18 21:55 Lexapro PO 10 mg QHS FELIX Administration Folic Acid 0.5 mg 09/01/18 08:00 09/05/18 11:17 Folic Acid PO 0.5 mg DAILY@0800 [facility] Administration Heparin Sodium (Porcine) 5,000 unit 09/01/18 06:00 09/05/18 07:00 Heparin Na SC 5,000 unit Q8 FELIX Administration Hydroxychloroquine Sulfate 200 mg 09/01/18 08:00 09/05/18 11:19 Plaquenil PO 200 mg DAILYCM [facility] Administration Dextrose/Sodium Chloride 1,000 mls @ 125 mls/hr 09/03/18 07:30 09/05/18 04:28 IV 125 mls/hr .Q8H FELIX Administration Potassium Chloride 10 meq in 100 mls @ 100 mls/hr 09/05/18 09:00 09/05/18 11:10 IV BOLUS 09/05/18 12:59 100 mls/hr Q1H FELIX Administration Magnesium Sulfate 4 gm in 100 mls @ 25 mls/hr 09/05/18 11:00 IV 09/05/18 14:59 X1 ONE Magnesium Hydroxide 30 ml 09/01/18 00:52 Milk Of Magnesia PO DAILY PRN PRN Constipation Multivitamins/Minerals 1 tablet 09/01/18 08:00 09/05/18 11:18 Multivitamin With Minerals PO 1 tablet DAILY@0800 FELIX Administration Nutritional Formula (Lactose Free) 120 ml 09/01/18 10:00 09/04/18 22:06 Ensure Enlive PO Not Given 4X/DAY FELIX Ondansetron HCl 4 mg 09/01/18 00:52 09/01/18 17:08 Zofran IV 4 mg Q6H PRN PRN Administration NAUSEA/VOMITING Sodium Chloride 5 - 15 ml 09/01/18 06:00 09/05/18 10:22 IV 10 ml UD PRN Administration SALINE FLUSH Assessment/Plan All Active Problems Encephalopathy (Acute) Acute kidney injury (Acute) dementia, bradykinesia, 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
--- NOTE | 2018-09-05 11:29 | PCM.PN.HOSP ---
Patient Problems: Active and Suspected Problems Encephalopathy (Acute) Acute kidney injury (Acute) Subjective: Per family more awake. Vitals/I&O's: Vital Signs Temp Pulse Resp BP Pulse Ox 36.9 C 56 L 16 139/55 H 96 09/05/18 03:00 09/05/18 07:37 09/05/18 03:00 09/05/18 03:00 09/05/18 03:00 Oxygen Flow Rate (L/min) 76 Oxygen Delivery Method Room Air Weight: 54 kg Body Mass Index (BMI) 21.7 Finger Stick Blood Glucose 172 Intake and Output for Last 24 Hours 09/03/18 09/04/18 09/05/18 23:59 23:59 23:59 Intake Total 3450 / 3450 2916 / 2916 1085 / 1085 Balance 3450 / 3450 2916 / 2916 1085 / 1085 General: Alert, - - Does not follow commands well. Very weak voice. Does not follow commands. HEENT: Atraumatic, Normocephalic, - - Masked facies Oral: Moist Mucosa, No Gingival or Mucosal Lesions/ Ulcerations Neck: No Nodes, Thyroid Normal Size and Texture Lungs: Clear to auscultation, Normal air movement, No rhonchi, No wheeze Cardiovascular: Regular rate, Regular Rhythm, Normal S1, Normal S2, No murmurs Abdomen: Bowel Sounds Present, Soft, Non Tender, Non-Distended, No Hepato-splenomegaly Extremities: No edema, No Calf Tenderness Microbiology Past 72 Hours 08/31/18 23:35 Urine, Clean Catch Urine Culture - Final Culture exhibits no growth. Laboratory Results 09/05/18 06:02: Sodium 146 H, Potassium 2.9 L, Chloride 112 H, Carbon Dioxide 24.0, Anion Gap 10, BUN 10, Creatinine 0.87, Estim Creat Clear Calc 39.43, Est GFR (MDRD) Af Amer 80, Est GFR (MDRD) Non-Af 66, BUN/Creatinine Ratio 11.5, Glucose 111 H, Calcium 7.4 L 09/05/18 06:02: Magnesium 1.3 L Current Medications Acetaminophen (Tylenol) 650 mg PO Q6H PRN PRN PRN Reason: Fever, headache, pain Last Admin: 09/04/18 19:12 Dose: 650 mg Acyclovir (Zovirax) 800 mg PO 5X/DAY FELIX Last Admin: 09/05/18 11:16 Dose: 800 mg Aspirin (Aspirin, Baby) 81 mg PO DAILYCM [facility] Last Admin: 09/05/18 11:18 Dose: 81 mg Calamine/Phenol (Calmoseptine Ointment) 1 applic TOPICAL TID [facility]; Protocol Last Admin: 09/05/18 07:00 Dose: 1 applicatio Escitalopram Oxalate (Lexapro) 10 mg PO QHS [facility] Last Admin: 09/04/18 21:55 Dose: 10 mg Folic Acid (Folic Acid) 0.5 mg PO DAILY@0800 [facility] Last Admin: 09/05/18 11:17 Dose: 0.5 mg Heparin Sodium (Porcine) (Heparin Na) 5,000 unit SC Q8 [facility] Last Admin: 09/05/18 07:00 Dose: 5,000 unit Hydroxychloroquine S[facility]ate ([facility]) [facility] Last Admin: 09/05/18 11:19 Dose: 200 mg Dextrose/Sodium Chloride () 1,000 mls @ 125 mls/hr IV .Q8H [facility] Last Admin: 09/05/18 04:28 Dose: 125 mls/hr Potassium Chloride () 10 meq in 100 mls @ 100 mls/hr IV BOLUS Q1H [facility] Stop: 09/05/18 12:59 Last Admin: 09/05/18 11:10 Dose: 100 mls/hr Magnesium Sulfate () 4 gm in 100 mls @ 25 mls/hr IV X1 ONE Stop: 09/05/18 14:59 Magnesium Hydroxide (Milk Of Magnesia) 30 ml PO DAILY PRN PRN PRN Reason: Constipation Multivitamins/Minerals (Multivitamin With Minerals) 1 tablet PO DAILY@0800 [facility] Last Admin: 09/05/18 11:18 Dose: 1 tablet Nutritional Formula (Lactose Free) (Ensure Enlive) 120 ml PO 4X/DAY [facility] Last Admin: 09/04/18 22:06 Dose: Not Given Ondansetron HCl (Zofran) 4 mg IV Q6H PRN PRN PRN Reason: NAUSEA/VOMITING Last Admin: 09/01/18 17:08 Dose: 4 mg Sodium Chloride () 5 - 15 ml IV UD PRN PRN Reason: SALINE FLUSH Last Admin: 09/05/18 10:22 Dose: 10 ml Medical Necessity - Tobacco Use Smoking Status: Former smoker Assessment/Plan All Active Problems Encephalopathy (Acute) Acute kidney injury (Acute) 1. Acute kidney injury Likely prerenal Resolved with IV fluids 2. Hypokalemia Replace potassium as well as magnesium 3. Hypomagnesemia Replace 4. Metabolic encephalopathy secondary to dehydration as well as patient's underlying diseases which have not been fully elucidated at this time. 5. Suspected neurodegenerative process Possibilities include Parkinson's versus PSP versus MSA Patient has had a fairly rapid decline over the past several months I have advised patient to follow-up with a movement disorder specialist at a tertiary facility. They prefer the [facility] [place] given closer proximity then [place]. I have provided information in regards to phone numbers for them to contact to set up an appointment at either of the 2 hospitals I did mention that patient has had recent loss in regards to her daughter who but I explained that severe depression would be a diagnosis of exclusion though it certainly complicates the overall picture. I did also advise no PEG tube or PICC line as it would not provide any quality of life for her. No indication for either of those at this time anyways. Did continue to encourage up out of care and they will reconsider and possibly evaluate as outpatient. They are in agreement to hold off on neurology consultation here so that they may follow-up outpatient with a movement disorder specialist, which we do not have at this facility. 6. Disposition: To home after the infusions of the electrolytes. Please refer to the discharge summary for further details Greater than 40 minutes spent on discharge today. Code Visit Inpatient E&M: 41337 Disch Hosp
--- NOTE | 2018-09-05 11:32 | CON.PCM_ITS ---
Reason for Consult Date of Consultation: 09/05/18 Reason for Consultation: ? movement disorder History of Present Illness: The patient is a 83 year old F admitted for encephalopathy due to dehydration, now improved. family reports until 2 months ago was movingok however starting about one year ago became abnormal, family notes confusion and slowed movements about one year ago. voice became soft and high pitched several months ago as well. family not aware of visual hallucinations. some falls more recently also severe stress associated with of daughter. pt currently unable to give history. apparently has required home health aide for 9-10 months. hasnt driven for years by choice. no issues per . Past Medical History Past Medical History (Chronic Problems): Chronic Problems Inflammatory polyarthritis (Chronic) Hypertension (Chronic) Obesity (BMI 30.0-34.9) (Chronic) Hyperlipidemia (Chronic) CAD (coronary artery disease) (Chronic) Multiple stents Anxiety and depression (Chronic) Allergies Penicillins Allergy (Verified 08/31/18 22:19) Rash erythromycin base [Erythromycin Base] Adverse Reaction (Verified 08/31/18 22:19) Nausea/Vom/Diarrhea Sulfa (Sulfonamide Antibiotics) Adverse Reaction (Verified 08/31/18 22:19) Nausea/Vom/Diarrhea Home Medications: Ambulatory Orders Medication Instructions Recorded Aspirin 81 mg PO DAILY 07/26/18 Calcium Carbonate/Vitamin D3 1 each PO BID 07/26/18 [Oyster Shell 500-Vit D3 200 Tb] Cholecalciferol (VIT D3) [Vitamin 1,000 unit PO TUTHSA 07/26/18 D3] Cholecalciferol (VIT D3) [Vitamin 1,500 unit PO SUMOWEFR 07/26/18 D3] Escitalopram Oxalate 10 mg PO QHS 07/26/18 Folic Acid 0.4 mg PO DAILY 07/26/18 Hydroxychloroquine [Plaquenil] 300 mg PO DAILYCM 07/26/18 Multivitamin/Iron/Folic Acid 1 each PO DAILY 07/26/18 [Centrum Adults Tablet] Valacyclovir HCl [Valacyclovir] 1,000 mg PO TID 08/31/18 Acetaminophen [Tylenol Tablet] 500 mg PO Q6H PRN PRN tablet 09/04/18 Ensure Enlive 120 ml PO 4X/DAY #30 liquid 09/04/18 Surgical History: appendectomy, coronary bypass surgery, hysterectomy, - - CABG x 1, PCI x 2, hysterectomy, appendectomy. Psychiatric History: No pertinent psych hx UTILITY SPECIALIST History: No pertinent UTILITY SPECIALIST history Smoking Status: Former smoker Alcohol: None Drugs: None - *Family History Maternal History Items: Heart Disease, Hypertension Paternal History Items: Heart Disease, Hypertension Patient Problems: Active and Suspected Problems Encephalopathy (Acute) Acute kidney injury (Acute) Objective: alert, oriented to person, not place language intact but sparse masked facies perrla, eomi, left pupil surgical +non-extinction of glabbelar blink +myersons +grasp bilat +cogwheeling hypophonic bradykinetic - Physical Exam Vital Signs Temp Pulse Resp BP Pulse Ox 36.9 C 56 L 16 139/55 H 96 09/05/18 03:00 09/05/18 07:37 09/05/18 03:00 09/05/18 03:00 09/05/18 03:00 Oxygen Flow Rate (L/min) 76 Oxygen Delivery Method Room Air Weight: 54 kg Body Mass Index (BMI) 21.7 Finger Stick Blood Glucose 172 Intake and Output for Last 24 Hours 09/03/18 09/04/18 09/05/18 23:59 23:59 23:59 Intake Total 3450 / 3450 2916 / 2916 1085 / 1085 Balance 3450 / 3450 2916 / 2916 1085 / 1085 Microbiology Past 72 Hours 08/31/18 23:35 Urine Culture - Final Urine, Clean Catch Culture exhibits no growth. Laboratory Tests Past 24 Hrs 09/05/18 09/05/18 06:02 06:02 Sodium 146 H Potassium 2.9 L Chloride 112 H Carbon Dioxide 24.0 Anion Gap 10 BUN 10 Creatinine 0.87 Estim Creat Clear Calc 39.43 Est GFR (MDRD) Af Amer 80 Est GFR (MDRD) Non-Af 66 BUN/Creatinine Ratio 11.5 Glucose 111 H Calcium 7.4 L Magnesium 1.3 L Current Home Med List Medication Instructions Recorded Confirmed Type Aspirin 81 mg PO DAILY 07/26/18 09/01/18 History Calcium Carbonate/Vitamin D3 1 each PO BID 07/26/18 09/01/18 History [Oyster Shell 500-Vit D3 200 Tb] Cholecalciferol (VIT D3) [Vitamin 1,000 unit PO TUTHSA 07/26/18 09/01/18 History D3] Cholecalciferol (VIT D3) [Vitamin 1,500 unit PO SUMOWEFR 07/26/18 09/01/18 History D3] Escitalopram Oxalate 10 mg PO QHS 07/26/18 09/01/18 History Folic Acid 0.4 mg PO DAILY 07/26/18 09/01/18 History Hydroxychloroquine [Plaquenil] 300 mg PO DAILYCM 07/26/18 09/01/18 History Multivitamin/Iron/Folic Acid 1 each PO DAILY 07/26/18 09/01/18 History [Centrum Adults Tablet] Valacyclovir HCl [Valacyclovir] 1,000 mg PO TID 08/31/18 09/01/18 History Acetaminophen [Tylenol Tablet] 500 mg PO Q6H PRN PRN tablet 09/04/18 Rx Ensure Enlive 120 ml PO 4X/DAY #30 liquid 09/04/18 Rx Current Medications Generic Name Dose Route Start Last Admin Trade Name Freq PRN Reason Stop Dose Admin Acetaminophen 650 mg 09/01/18 00:52 09/04/18 19:12 Tylenol PO 650 mg Q6H PRN PRN Administration Fever, headache, pain Acyclovir 800 mg 09/04/18 10:00 09/05/18 11:16 Zovirax PO 800 mg 5X/DAY FELIX Administration Aspirin 81 mg 09/01/18 08:00 09/05/18 11:18 Aspirin, Baby PO 81 mg DAILYCM [facility] Administration Calamine/Phenol 1 applic 09/05/18 06:00 09/05/18 07:00 Calmoseptine Ointment TOPICAL 1 applicatio TID [facility] Administration Protocol Escitalopram Oxalate 10 mg 09/01/18 22:00 09/04/18 21:55 Lexapro PO 10 mg QHS FELIX Administration Folic Acid 0.5 mg 09/01/18 08:00 09/05/18 11:17 Folic Acid PO 0.5 mg DAILY@0800 [facility] Administration Heparin Sodium (Porcine) 5,000 unit 09/01/18 06:00 09/05/18 07:00 Heparin Na SC 5,000 unit Q8 FELIX Administration Hydroxychloroquine Sulfate 200 mg 09/01/18 08:00 09/05/18 11:19 Plaquenil PO 200 mg DAILYCM [facility] Administration Dextrose/Sodium Chloride 1,000 mls @ 125 mls/hr 09/03/18 07:30 09/05/18 04:28 IV 125 mls/hr .Q8H FELIX Administration Potassium Chloride 10 meq in 100 mls @ 100 mls/hr 09/05/18 09:00 09/05/18 11:10 IV BOLUS 09/05/18 12:59 100 mls/hr Q1H FELIX Administration Magnesium Sulfate 4 gm in 100 mls @ 25 mls/hr 09/05/18 11:00 IV 09/05/18 14:59 X1 ONE Magnesium Hydroxide 30 ml 09/01/18 00:52 Milk Of Magnesia PO DAILY PRN PRN Constipation Multivitamins/Minerals 1 tablet 09/01/18 08:00 09/05/18 11:18 Multivitamin With Minerals PO 1 tablet DAILY@0800 FEL[facility] Administration Nutritional Formula (Lactose Free) 120 ml 09/01/18 10:00 09/04/18 22:06 Ensure Enlive PO Not Given 4X/DAY FELIX Ondansetron HCl 4 mg 09/01/18 00:52 09/01/18 17:08 Zofran IV 4 mg Q6H PRN PRN Administration NAUSEA/VOMITING Sodium Chloride 5 - 15 ml 09/01/18 06:00 09/05/18 10:22 IV 10 ml UD PRN Administration SALINE FLUSH Assessment/Plan All Active Problems Encephalopathy (Acute) Acute kidney injury (Acute) dementia, bradykinesia, 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
--- NOTE | 2018-09-05 11:33 | PN_ITS ---
Patient Problems: Active and Suspected Problems Encephalopathy (Acute) Acute kidney injury (Acute) Subjective: Per family more awake. Vitals/I&O's: Vital Signs Temp Pulse Resp BP Pulse Ox 36.9 C 56 L 16 139/55 H 96 09/05/18 03:00 09/05/18 07:37 09/05/18 03:00 09/05/18 03:00 09/05/18 03:00 Oxygen Flow Rate (L/min) 76 Oxygen Delivery Method Room Air Weight: 54 kg Body Mass Index (BMI) 21.7 Finger Stick Blood Glucose 172 Intake and Output for Last 24 Hours 09/03/18 09/04/18 09/05/18 23:59 23:59 23:59 Intake Total 3450 / 3450 2916 / 2916 1085 / 1085 Balance 3450 / 3450 2916 / 2916 1085 / 1085 General: Alert, - - Does not follow commands well. Very weak voice. Does not follow commands. HEENT: Atraumatic, Normocephalic, - - Masked facies Oral: Moist Mucosa, No Gingival or Mucosal Lesions/ Ulcerations Neck: No Nodes, Thyroid Normal Size and Texture Lungs: Clear to auscultation, Normal air movement, No rhonchi, No wheeze Cardiovascular: Regular rate, Regular Rhythm, Normal S1, Normal S2, No murmurs Abdomen: Bowel Sounds Present, Soft, Non Tender, Non-Distended, No Hepato- splenomegaly Extremities: No edema, No Calf Tenderness Microbiology Past 72 Hours 08/31/18 23:35 Urine, Clean Catch Urine Culture - Final Culture exhibits no growth. Laboratory Results 09/05/18 06:02: Sodium 146 H, Potassium 2.9 L, Chloride 112 H, Carbon Dioxide 24.0, Anion Gap 10, BUN 10, Creatinine 0.87, Estim Creat Clear Calc 39.43, Est GFR (MDRD) Af Amer 80, Est GFR (MDRD) Non-Af 66, BUN/Creatinine Ratio 11.5, Glucose 111 H, Calcium 7.4 L 09/05/18 06:02: Magnesium 1.3 L Current Medications Acetaminophen (Tylenol) 650 mg PO Q6H PRN PRN PRN Reason: Fever, headache, pain Last Admin: 09/04/18 19:12 Dose: 650 mg Acyclovir (Zovirax) 800 mg PO 5X/DAY FELIX Last Admin: 09/05/18 11:16 Dose: 800 mg Aspirin (Aspirin, Baby) 81 mg PO DAILYCM [facility] Last Admin: 09/05/18 11:18 Dose: 81 mg Calamine/Phenol (Calmoseptine Ointment) 1 applic TOPICAL TID [facility]; Protocol Last Admin: 09/05/18 07:00 Dose: 1 applicatio Escitalopram Oxalate (Lexapro) 10 mg PO QHS [facility] Last Admin: 09/04/18 21:55 Dose: 10 mg Folic Acid (Folic Acid) 0.5 mg PO DAILY@0800 [facility] Last Admin: 09/05/18 11:17 Dose: 0.5 mg Heparin Sodium (Porcine) (Heparin Na) 5,000 unit SC Q8 [facility] Last Admin: 09/05/18 07:00 Dose: 5,000 unit [facility] Admin: 09/05/18 11:19 Dose: 200 mg Dextrose/Sodium Chloride () 1,000 mls @ 125 mls/hr IV .Q8H [facility] Last Admin: 09/05/18 04:28 Dose: 125 mls/hr Potassium Chloride () 10 meq in 100 mls @ 100 mls/hr IV BOLUS Q1H [facility] Stop: 09/05/18 12:59 Last Admin: 09/05/18 11:10 Dose: 100 mls/hr Magnesium Sulfate () 4 gm in 100 mls @ 25 mls/hr IV X1 ONE Stop: 09/05/18 14:59 Magnesium Hydroxide (Milk Of Magnesia) 30 ml PO DAILY PRN PRN PRN Reason: Constipation Multivitamins/Minerals (Multivitamin With Minerals) 1 tablet PO DAILY@0800 [facility] Last Admin: 09/05/18 11:18 Dose: 1 tablet Nutritional Formula (Lactose Free) (Ensure Enlive) 120 ml PO 4X/DAY [facility] Last Admin: 09/04/18 22:06 Dose: Not Given Ondansetron HCl (Zofran) 4 mg IV Q6H PRN PRN PRN Reason: NAUSEA/VOMITING Last Admin: 09/01/18 17:08 Dose: 4 mg Sodium Chloride () 5 - 15 ml IV UD PRN PRN Reason: SALINE FLUSH Last Admin: 09/05/18 10:22 Dose: 10 ml Medical Necessity - Tobacco Use Smoking Status: Former smoker Assessment/Plan All Active Problems Encephalopathy (Acute) Acute kidney injury (Acute) 1. Acute kidney injury Likely prerenal Resolved with IV fluids 2. Hypokalemia Replace potassium as well as magnesium 3. Hypomagnesemia Replace 4. Metabolic encephalopathy secondary to dehydration as well as patient's underlying diseases which have not been fully elucidated at this time. 5. Suspected neurodegenerative process Possibilities include Parkinson's versus PSP versus MSA Patient has had a fairly rapid decline over the past several months I have advised patient to follow-up with a movement disorder specialist at a tertiary facility. They prefer the [facility] given closer proximity then [place]. I have provided information in regards to phone numbers for them to contact to set up an appointment at either of the 2 hospitals I did mention that patient has had recent loss in regards to her daughter who but I explained that severe depression would be a diagnosis of exclusion though it certainly complicates the overall picture. I did also advise no PEG tube or PICC line as it would not provide any quality of life for her. No indication for either of those at this time anyways. Did continue to encourage up out of care and they will reconsider and possibly evaluate as outpatient. They are in agreement to hold off on neurology consultation here so that they may follow-up outpatient with a movement disorder specialist, which we do not have at this facility. 6. Disposition: To home after the infusions of the electrolytes. Please refer to the discharge summary for further details Greater than 40 minutes spent on discharge today. Code Visit Inpatient E&M: [id number] Disch Hosp
[2018-09-05] MEDS: Magnesium Sulfate 4gm/100mL 4 GM/100 ML IV.SOLN. IV (12:19)
[2018-09-05 12:55] VITALS: PULSE 76
[2018-09-05 17:43] VITALS: BP 141/62; PULSE 73; RESP 16; TEMP 37.1; O2SAT 95
== END 2018-09-05 18:23 | disposition home or self-care (01) | DRG 682 ==
LOC: ED 23:37 → MS3 09-01 00:14
PROVIDERS: Internal Medicine; Admitting Provider Hospitalist; Emergency Provider Emergency Medicine; Family Provider Family Medicine; PCP Family Medicine
DX: N17.9 Acute kidney failure, unspecified (principal); G93.41 Metabolic encephalopathy; E87.1 Hypo-osmolality and hyponatremia; E87.0 Hyperosmolality and hypernatremia; G25.9 Extrapyramidal and movement disorder, unspecified; I25.10 Atherosclerotic heart disease of native coronary artery without angina pectoris; E86.0 Dehydration; M06.4 Inflammatory polyarthropathy; F03.90 Unspecified dementia, unspecified severity, without behavioral disturbance, psychotic disturbance, mood disturbance, and anxiety; I10 Essential (primary) hypertension; F41.8 Other specified anxiety disorders; Z95.5 Presence of coronary angioplasty implant and graft; Z79.899 Other long term (current) drug therapy
CPT/HCPCS: 36415; 70450; 71045; 80048; 81001; 82962; 83735; 84132; 85025; 85027; 87086; 92526; 93005; 97163; 97166; 97530; 97535; 97802; 99285; J7030; J7040; P9612; A4216; J2405; J7799

== ENCOUNTER 2018-09-06 18:18 | Inpatient (IN) | payer MEDICARE, OTHER, SELFPAY ==
[2018-09-01 01:02] VITALS: BMI 21.7
[2018-09-06] VITALS (7 sets, daily range): BP systolic 111–165; BP diastolic 63–83; PULSE 64–82; RESP 16–30; TEMP 37.1–38.3; O2SAT 94–97; BMI 20.7; BMI 20.8
--- NOTE | 2018-09-06 18:36 | EKG12_ITS ---
Test Reason : SOB Blood Pressure : / mmHG Vent. Rate : 101 BPM Atrial Rate : 101 BPM P-R Int : 108 ms QRS Dur : 132 ms QT Int : 392 ms P-R-T Axes : 000 -63 045 degrees QTc Int : 508 ms Sinus tachycardia with short HI with frequent and consecutive Premature ventricular complexes Right bundle branch block Left anterior fascicular block Bifascicular block Abnormal ECG Confirmed by BRENDAN ROBLES, PALOMO ([id number]), newspaper or periodical editor VASQUEZ SUBRAMANIAN ([id number]) on 09/11/2018 10:10:09 AM Referred By: Dusty Crockett Confirmed By:PALOMO CARDONA MD
[2018-09-06 18:42] LABS: Bedside Glucose 125 mg/dL (70-110)
[2018-09-06 18:50] LABS: Absolute Lymphocyte Count 0.54 X10^3/ul (0.83-4.51); Absolute Neutrophil Count 1.7 X10^3/uL (2.0-7.7); Basophil# 0.01 X10^3/uL; Basophil% 0.4 % (0-1); Eosinophil# 0.02 X10^3/uL; Eosinophils% 0.8 % (0-5); Hematocrit 38.2 % (37-47); Hemoglobin 12.3 g/dl (12.0-15.0); Lymphocyte # 0.54 X10^3/ul (4.0); Lymphocyte % 22.9 % (19-41); Mean Corp Hgb Conc 32.2 g/gl (32-36); Mean Corpuscular Hgb 27.5 pg (27.0-32.0); Mean Corpuscular Volume 85.5 fL (81-99); Monocyte# 0.12 X10^3/uL; Monocyte% 5.1 % (0-10); Neutrophil # 1.65 X10^3/uL (2.7-7.7); Platelet Count 110 K/mm3 (150-450); RBC Distribution Width CV 15.5 % (11.6-14.6); RBC Distribution Width SD 47.6 fl (35.1-43.9); Red Blood Count 4.47 M/mm3 (4.2-5.4); White Blood Count 2.4 K/mm3 (4.4-11.0)
[2018-09-06 18:51] LABS: Differential Indicated SCAN CRITERIA MET; POSITIVE COUNT NO; POSITIVE DIFFERENTIAL YES; POSITIVE MORPHOLOGY NO
--- NOTE | 2018-09-06 18:55 | RAD_ITS ---
STUDY: X-RAY CHEST REASON FOR EXAM: Female, 83 years old. Fever TECHNIQUE: Single frontal view COMPARISON: August 31, 2018 FINDINGS: Stable sternotomy wires. The lungs are clear and expanded. There is no demonstrated pleural abnormality. Normal size heart. Normal mediastinum and anish. Normal visualized pulmonary arteries. Normal visualized aortic arch and descending thoracic aorta. Degenerative changes of the thoracic spine. Lower lumbar postsurgical changes. Normal visualized ribs, clavicles, and shoulders. There is no demonstrated abnormality of the visualized soft tissue structures of the upper abdomen. RAD/Chest 1 View (Portable) IMPRESSION: No acute pulmonary pathology of the chest. Electronically Signed: Hernando Karimi DO at 19:34 EST Tel [phone], Service support ,
[2018-09-06 19:02] LABS: International Normalized Ratio 1.1; Prothrombin Time (Protime)PT. 14.4 SECONDS (11.7-14.9)
[2018-09-06 19:03] LABS: ALB/GLOB Ratio 0.8 RATIO (0.9-2.4); AST(SGOT) 39 U/L (15-37); Alanine Aminotransfer ALT/SGPT 57 U/L (13-56); Albumin, Serum 2.7 g/dL (3.2-5.0); Alkaline Phosphatase 70 U/L (45-117); Anion Gap 9 (5-15); BUN 14 mg/dL (7-18); BUN/Creat Ratio 15.6 RATIO (10-20); Calcium,Total 7.6 mg/dL (8.5-10.1); Chloride 112 mmol/L (98-107); EST Glomerular Filtration Rate 64 mL/min (>60); Est Glom Filt Rate - Afr Amer 78 mL/min (>60); Estimated Creatinine Clearance 43.06 ml/min; Globulin 3.3 g/dL (2.2-4.2); Glucose 113 mg/dL (74-106); Partial Thromboplast Time 29.3 Seconds (24.1-36.2); Potassium 3.2 mmol/L (3.5-5.1); Sodium Level 145 mmol/L (136-145)
[2018-09-06] MEDS: Acetaminophen 650 MG Suppository RECTAL (19:05)
[2018-09-06] MEDS: 0.9% Normal Saline 1,000 ML 150 ML IV (19:05)
[2018-09-06 19:06] LABS: Bacteria 0 SEEN /hpf (None Seen); Mucous, Urine 0 SEEN /hpf (<or=2+); Red Blood Cells-Urine 0 SEEN /hpf (0-5); Squamous Epithelial Cells - UA 0 SEEN /hpf (5-10)
[2018-09-06 19:08] LABS: Platelet Estimate SLT DEC (ADEQ); Red Cell Morphology NORM C+C NORMAL (NORM C&C)
[2018-09-06 19:10] LABS: Color, Urine Yellow (Yellow); Glucose, Dipstick Normal (Normal); Ketone-Dipstick Negative (Negative); Leukocyte Esterase-Dipstick 500 /ul (Negative); Nitrite-Dipstick Negative (Negative); Occult Blood-Urine 250 /ul (Negative); Protein-Dipstick 100 mg/dl (Negative); Specific Gravity, Urine 1.015 (1.002-1.030); Urine Bilirubin Dipstick Negative (Negative); Urine Clarity Turbid (Clear); Urine Urobilinogen Normal (Normal)
[2018-09-06] MEDS: Ceftriaxone 1 GM/50 ML BAG IV (19:13)
[2018-09-06 19:16] LABS: Lactic Acid 1.6 mmol/L (0.4-2.0)
[2018-09-06 19:20] LABS: White Blood Cells >100 SEEN /hpf (0-5)
--- NOTE | 2018-09-06 19:25 | ED.DCSUM_ITS ---
- ER Visit Summary Date of Service: 09/06/18 Chief Complaint: Fever History of Present Illness: The patient is a [address] Kearney. Patient is unable to provide any useful history. All history is obtained through her 24-hour caregiver. They report patient today his been shaky and had a fever. She actually was discharged from the hospital yesterday. They deny any difficulty breathing or cough. She is not been having vomiting or diarrhea. There is no rash. She is very weak. Physical Examination: Vitals: 101.0, 165/77, 82, 30, 94% on room air which is not hypoxic. General: Well-nourished and well-developed. Head: Normocephalic atraumatic. Neck: Supple, no lymphadenopathy. No JVD. Nontender. Cardiovascular: Regular rate and rhythm. 2 out of 6 systolic murmur. Respiratory: No respiratory distress. Clear to auscultation bilaterally. Abdominal: Soft, nontender, nondistended, normal bowel sounds. No guarding, rebound, or peritoneal signs. Back: Nontender. Extremities: Nontender, no edema. Skin: Normal color, no rash. Neurologic: Awake. Not answering any questions. Withdraws to pain. Psych: Normal affect. Test Results: EKG is sinus tach at 101 with a great deal of artifact. CBC shows a white count of 2.4, platelets of 110, and absolute neutrophil count of 1680. Chem-7 shows a potassium 3.2, chloride 112, glucose 113, calcium 7.6. Lactic acid is 1.6. LFTs showed total bili 1.4, ALT 57, AST of 39. INR is 1.1. PTT is 40.4. Urinalysis has greater than 100 white blood cells, blood, and leukocytes. Chest x-ray shows chronic changes. Emergency Department Course and Treatment: Patient had an IV placed. She has not been hypotensive here. She was given rectal Tylenol and Rocephin IV. Blood cultures and urine cultures were sent. Treatment Plan: Patient was discussed with Dr. Crockett. She will be admitted to the hospital for further relation treatment. Disposition: Admitted in serious condition. Impression: 1. Pyelonephritis. 2. Sepsis. 3. Immunosuppression on Plaquenil. This note was generated with [employer] software. It may contain incorrect words, spelling, and punctuation that were not noted in review of the chart prior to signing ED Disposition - Plan for ED Patient: Referrals: Jacobo Kearney MD [Primary Care Provider] -
--- NOTE | 2018-09-06 20:04 | HP.PCM_ITS ---
Problem List (1) Sepsis Status: Acute (2) Pyelonephritis Status: Acute (3) Acute kidney injury Status: Resolved History of Present Illness Date of Admission: 09/06/18 Chief Complaint: chills and fever The patient is a 83 year old F with a significant history of CAD status post CABG and stents; rheumatoid arthritis on Plaquenil who was recently admitted on 08/13/2018 and discharged on 09/04/2018 presenting with fever and chills on the same day of admission. Her home temperature was reported as 101F Associated with her symptoms is altered mental status for which reason, history was taken from caregiver. Patient lives at home with her and she has 24-hour caregiver. She was recently admitted and discharge with diagnosis as acute metabolic encephalopathy; dehydration and AK I. On this presentation, patient had a core temperature of between 100.9-101.8. Her respiratory rate was elevated between 26-30. Also on presentation she was found to have sinus tachycardia on EKG with heart rate of 101. Past Medical History Past Medical History (Chronic Problems): Chronic Problems Inflammatory polyarthritis (Chronic) Hypertension (Chronic) Obesity (BMI 30.0-34.9) (Chronic) Hyperlipidemia (Chronic) CAD (coronary artery disease) (Chronic) Multiple stents Anxiety and depression (Chronic) Allergies Penicillins Allergy (Verified 09/06/18 18:24) Rash erythromycin base [Erythromycin Base] Adverse Reaction (Verified 09/06/18 18:24) Nausea/Vom/Diarrhea Sulfa (Sulfonamide Antibiotics) Adverse Reaction (Verified 09/06/18 18:24) Nausea/Vom/Diarrhea Home Medications: Ambulatory Orders Medication Instructions Recorded Aspirin 81 mg PO DAILY 07/26/18 Calcium Carbonate/Vitamin D3 1 each PO BID 07/26/18 [Oyster Shell 500-Vit D3 200 Tb] Cholecalciferol (VIT D3) [Vitamin 1,000 unit PO TUTHSA 07/26/18 D3] Cholecalciferol (VIT D3) [Vitamin 1,500 unit PO SUMOWEFR 07/26/18 D3] Escitalopram Oxalate 10 mg PO QHS 07/26/18 Folic Acid 0.4 mg PO DAILY 07/26/18 Hydroxychloroquine [Plaquenil] 300 mg PO DAILYCM 07/26/18 Multivitamin/Iron/Folic Acid 1 each PO DAILY 07/26/18 [Centrum Adults Tablet] Ensure Enlive 120 ml PO 4X/DAY #30 liquid 09/04/18 Acetaminophen [Tylenol Tablet] 650 mg PO Q6H PRN PRN 09/06/18 Surgical History: appendectomy, coronary bypass surgery, hysterectomy, - - CABG x 1, PCI x 2, hysterectomy, appendectomy. Psychiatric History: No pertinent psych hx [employer] History: No pertinent [employer] history Lives: With Family - 24-hour home care. Smoking Status: Former smoker - *Family History Maternal History Items: Heart Disease, Hypertension Paternal History Items: Heart Disease, Hypertension Review of Systems Unable to obtain accurate/complete ROS d/t: Acute encephalopathy VTE Information - Inpt Only VTE Present on Admission: No VTE Mechan Device Prophylaxis: None VTE Pharm Prophylaxis ordered?: Yes Patient Problems: Active and Suspected Problems Sepsis (Acute) Pyelonephritis (Acute) - Physical Exam General: - - Obtunded HEENT: Atraumatic, Normocephalic, - - Patient is not opening his eyes to check PERRLA and extraocular eye movements. Neck: Supple, No JVD, Negative Carotid Bruits Lungs: Clear to auscultation, Normal air movement Cardiovascular: Regular rate, No murmurs Abdomen: Bowel Sounds Present, Soft, Non Tender Extremities: No edema, Capillary Refill Less than 3 Seconds Skin: No rashes, No breakdown, - - Very warm to touch. Musculoskeletal: No Tenderness to Palpation of Joints or Extremities Neurological: - - Obtunded, grimaces to sternal rub. Psych/Mental Status: Appropriate, Agitated - Obtunded, - Vital Signs Temp Pulse Resp BP Pulse Ox 100.9 F H 79 26 H 144/67 H 95 09/06/18 19:09 09/06/18 19:09 09/06/18 19:09 09/06/18 19:09 09/06/18 19:13 Oxygen Delivery Method Room Air Weight: 56.6 kg Body Mass Index (BMI) 20.7 Finger Stick Blood Glucose 125 Laboratory Tests Past 24 Hrs 09/06/18 09/06/18 09/06/18 18:39 18:39 18:39 WBC 2.4 L RBC 4.47 Hgb 12.3 Hct 38.2 MCV 85.5 MCH 27.5 MCHC 32.2 RDW 15.5 H RDW Differential 47.6 H Plt Count 110 L MPV 10.0 Immature Gran % (Auto) 0.800 Neut % (Auto) 70.0 Lymph % (Auto) 22.9 Gordon % (Auto) 5.1 Eos % (Auto) 0.8 Baso % (Auto) 0.4 Absolute Neuts (auto) 1.7 L Absolute Lymphs (auto) 0.54 L Total Counted Not Reportable Differential Comment Diff Path Review May foll Platelet Estimate SLT DEC RBC Morphology NORM C+C PT 14.4 INR 1.1 APTT 29.3 Sodium 145 Potassium 3.2 L Chloride 112 H Carbon Dioxide 24.0 Anion Gap 9 BUN 14 Creatinine 0.90 Estim Creat Clear Calc 43.06 Est GFR (MDRD) Af Amer 78 Est GFR (MDRD) Non-Af 64 BUN/Creatinine Ratio 15.6 Glucose 113 H Lactic Acid Calcium 7.6 L Total Bilirubin 1.40 H AST 39 H ALT 57 H Alkaline Phosphatase 70 Total Protein 6.0 L Albumin 2.7 L Globulin 3.3 Albumin/Globulin Ratio 0.8 L Urine Color Urine Clarity Urine pH Ur Specific [place] Urine Protein Urine Glucose (UA) Urine Ketones Urine Occult Blood Urine Nitrite Urine Bilirubin Urine Urobilinogen Ur Leukocyte Esterase Urine RBC Urine WBC Ur Squamous Epith Cells Urine Bacteria Urine Mucus 09/06/18 09/06/18 18:45 19:00 WBC RBC Hgb Hct MCV MCH MCHC RDW RDW Differential Plt Count MPV Immature Gran % (Auto) Neut % (Auto) Lymph % (Auto) Gordon % (Auto) Eos % (Auto) Baso % (Auto) Absolute Neuts (auto) Absolute Lymphs (auto) Total Counted Differential Comment Diff Path Review Platelet Estimate RBC Morphology PT INR APTT Sodium Potassium Chloride Carbon Dioxide Anion Gap BUN Creatinine Estim Creat Clear Calc Est GFR (MDRD) Af Amer Est GFR (MDRD) Non-Af BUN/Creatinine Ratio Glucose Lactic Acid 1.6 Calcium Total Bilirubin AST ALT Alkaline Phosphatase Total Protein Albumin Globulin Albumin/Globulin Ratio Urine Color Yellow Urine Clarity Turbid Urine pH 6.0 Ur Specific [place] 1.015 Urine Protein 100 H Urine Glucose (UA) Normal Urine Ketones Negative Urine Occult Blood 250 H Urine Nitrite Negative Urine Bilirubin Negative Urine Urobilinogen Normal Ur Leukocyte Esterase 500 H Urine RBC 0 SEEN Urine WBC >100 SEEN Ur Squamous Epith Cells 0 SEEN Urine Bacteria 0 SEEN Urine Mucus 0 SEEN POC Glucose 09/06/18 18:32 POC Glucose 125 H Assessment/Plan All Active Problems Sepsis (Acute) Pyelonephritis (Acute) Encephalopathy (Acute) Acute kidney injury (Resolved) The patient is a 83 year old F with a significant history of CAD status post CABG and stents; rheumatoid arthritis on Plaquenil who was recently admitted on 08/13/2018 and discharged on 09/04/2018 presenting with fever and chills found to have tachycardia; tachypnea; sustained fever and abnormal urinalysis consistent with sepsis secondary to likely pyelonephritis. Sepsis secondary to pyelonephritis Patient with abnormal urinalysis with increased protein; urine occult blood; and elevated leukocyte esterase. She meets SIRS criteria with tachycardia and leukopenia. Of note leukopenia could be because of Plaquenil use. However review of old records shows that about a month ago he had normal white counts. At the emergency department patient blood cultures x2 was obtained. Follow results. Urine cultures are pending. Lactic acid is unremarkable. Patient received ceftriaxone at the emergency department. Ceftriaxone will be continued. Patient received rectal Tylenol at emergency department. Tylenol prn continued Maintenance IV infusion was initiated at the emergency department. Normal saline IV infusion continued. Trend CBC and CMP. Patient received ceftriaxone at the emergency department. Ceftriaxone c ontinued. Acute infectious encephalopathy Likely secondary to sepsis Management of sepsis as above. Elevated liver enzymes Noted to have elevated liver enzymes Likely due to sepsis. Trend CMP Hypokalemia On presentation her potassium was 3.2 Replaced with IV potassium. Trend CMP Check magnesium level. Pseudo-hypocalcemia On presentation her calcium level was 7.6. Her albumin level is 2.7. Corrected calcium is 8.6. Rheumatoid arthritis Plaquenil and folic acid continued. Depression Citalopram continued. History of CAD status post CABG and stent Stable Aspirin continued. Vitamin D deficiency Calcium carbonate and vitamin D continued. DVT prophylaxis Subcutaneous heparin. Code Visit Inpatient E&M: 07637 Init Hosp L3
[2018-09-06] MEDS: Potassium Chloride 10mEq/100mL 10 MEQ/100 ML IV.SOLN. 100 MEQ IV BOLUS ×3 (20:47→23:41)
[2018-09-06 23:11] LABS: Magnesium 1.9 mg/dL (1.6-2.6)
[2018-09-06] MEDS: 0.45% Normal Saline 1,000 ML 100 ML IV (23:40)
[2018-09-06] MEDS: Heparin Injection (Vial) 5,000 UNIT/ML VIAL 5000 UNIT SC (23:41)
[2018-09-07] VITALS (7 sets, daily range): BP systolic 127–164; BP diastolic 51–68; PULSE 56–80; RESP 16–20; TEMP 36.4–36.9; O2SAT 95–99
[2018-09-07] MEDS: Potassium Chloride 10mEq/100mL 10 MEQ/100 ML IV.SOLN. 100 MEQ IV BOLUS (01:38)
[2018-09-07 06:18] LABS: Absolute Lymphocyte Count 1.27 X10^3/ul (0.83-4.51); Absolute Neutrophil Count 3.6 X10^3/uL (2.0-7.7); Basophil# 0.01 X10^3/uL; Basophil% 0.2 % (0-1); Eosinophil# 0.02 X10^3/uL; Eosinophils% 0.3 % (0-5); Hematocrit 34.4 % (37-47); Hemoglobin 10.9 g/dl (12.0-15.0); Lymphocyte # 1.27 X10^3/ul (4.0); Lymphocyte % 21.6 % (19-41); Mean Corp Hgb Conc 31.7 g/gl (32-36); Mean Corpuscular Hgb 27.7 pg (27.0-32.0); Mean Corpuscular Volume 87.5 fL (81-99); Mean Platelet Vol. 11.2 fl (6.2-12.0); Monocyte# 0.97 X10^3/uL; Monocyte% 16.5 % (0-10); Neutrophil # 3.58 X10^3/uL (2.7-7.7); Neutrophil % 61.1 % (47-70); Platelet Count 98 K/mm3 (150-450); RBC Distribution Width CV 15.6 % (11.6-14.6); RBC Distribution Width SD 47.9 fl (35.1-43.9); Red Blood Count 3.93 M/mm3 (4.2-5.4); White Blood Count 5.9 K/mm3 (4.4-11.0)
[2018-09-07 06:25] LABS: ALB/GLOB Ratio 0.8 RATIO (0.9-2.4); AST(SGOT) 36 U/L (15-37); Alanine Aminotransfer ALT/SGPT 47 U/L (13-56); Albumin, Serum 2.2 g/dL (3.2-5.0); Alkaline Phosphatase 59 U/L (45-117); Anion Gap 7 (5-15); BUN 15 mg/dL (7-18); BUN/Creat Ratio 17.5 RATIO (10-20); Calcium,Total 7.2 mg/dL (8.5-10.1); Chloride 114 mmol/L (98-107); Creatinine, Serum 0.86 mg/dL (0.55-1.02); EST Glomerular Filtration Rate 67 mL/min (>60); Est Glom Filt Rate - Afr Amer 81 mL/min (>60); Estimated Creatinine Clearance 43.55 ml/min; Globulin 2.8 g/dL (2.2-4.2); Glucose 111 mg/dL (74-106); Potassium 3.8 mmol/L (3.5-5.1); Sodium Level 145 mmol/L (136-145)
[2018-09-07 06:27] LABS: POSITIVE COUNT NO; POSITIVE DIFFERENTIAL NO; POSITIVE MORPHOLOGY NO
--- NOTE | 2018-09-07 09:28 | CT_ITS ---
STUDY: CT ABDOMEN AND PELVIS WITHOUT CONTRAST REASON FOR EXAM: Female, 83 years old. Dysuria. Acute pyelonephritis. RADIATION DOSAGE (If Supplied By Facility): CTDIvol = ( 8.54 ) mGy, DLP = ( 384.14 ) mGycm TECHNIQUE: Transaxial images were obtained from the dome of the diaphragm to the symphysis pubis without oral contrast, and without intravenous contrast. Sagittal and coronal images were reconstructed. Individualized dose optimization techniques were used for this CT. COMPARISON: None. FINDINGS: Tiny left pleural effusion. Mild degree of bibasilar atelectasis. Coronary artery calcification. Normal liver. Normal gallbladder and extrahepatic biliary system. Normal spleen. Normal pancreas. Normal bilateral adrenal glands. Normal right kidney. Normal left kidney. Normal visualized stomach. Normal small intestine. Moderate amount of fecal material is seen throughout the colon. The appendix is visualized and appears normal. There is diffuse atherosclerotic calcification of the abdominal aorta, without a demonstrated aneurysm. Normal inferior vena cava. Normal retroperitoneum. Bladder wall thickening. Small amount of air is seen within the urinary bladder. This most likely secondary to catheter manipulation. Normal abdominal wall. There are diffuse degenerative changes of the visualized lumbar spine. Prior intrapedicular screw fixation at the L3-L4 and L4-L5 loss of height of the L2 and L3 vertebrae. CT/Abdomen/Pelvis without Cont IMPRESSION: Thickening of the urinary bladder wall. Air is seen within the urinary bladder. This most likely secondary to recent Ramirez catheter manipulation. Fecal material is seen in the colon worse in the rectosigmoid colon. Electronically Signed: Vitaliy Mandujano MD at 10:26 EST , Service support ,
--- NOTE | 2018-09-07 09:30 | PCM.PROGNOTE ---
Patient Problems: Active and Suspected Problems Acute cystitis (Acute) Sepsis (Acute) Pyelonephritis (Suspected) Subjective: Chief complaint: Follow-up after admission for sepsis secondary to acute cystitis and suspected pyelonephritis, found to have gram-negative bacteremia. Patient seen and examined. No acute events overnight. Patient is awake and alert but she is not answering questions. When asked her what she remained, she did not reply although she has been talking fluently and normally otherwise. According to nursing staff, patient has been not interacting with the staff but she does with family. Reportedly, she had a history of dementia. Her vital signs are stable. - Physical Exam General: Alert, Cooperative, No apparent distress HEENT: Atraumatic, PERRLA, EOMI, Normocephalic Oral: Moist Mucosa, No Gingival or Mucosal Lesions/ Ulcerations Neck: Supple, No JVD, Negative Carotid Bruits, Trachea Midline, Thyroid Normal Size and Texture Lungs: Clear to auscultation, No rhonchi, No wheeze, No rales, Diminished Cardiovascular: Regular rate, Regular Rhythm, Normal S1, Normal S2, PMI Normal Abdomen: Bowel Sounds Present, Soft, Non Tender, Non-Distended, No Hepato-splenomegaly Extremities: No clubbing, No cyanosis, No edema Skin: No rashes, No breakdown Lymphatic: No Cervical, Supraclavicular, or Inguinal Adenopathy Neurological: Cranial nerves II-XII grossly intact, Motor Exam 5/5 strength throughout Psych/Mental Status: Flat Affect Vital Signs Temp Pulse Resp BP Pulse Ox 98.2 F 56 L 20 H 130/52 H 95 09/07/18 05:41 09/07/18 05:41 09/07/18 05:41 09/07/18 05:41 09/07/18 05:41 Oxygen Delivery Method Room Air Weight: 124 lb 12.506 oz Body Mass Index (BMI) 20.7 Finger Stick Blood Glucose 125 Intake and Output for Last 24 Hours 09/05/18 09/06/18 09/07/18 23:59 23:59 23:59 Intake Total 1150 / 1150 Output Total 400 / 400 Balance 750 / 750 Microbiology Past 72 Hours 09/06/18 18:39 Blood Culture - Preliminary Blood Culture (Wb) - Left Forearm Gram negative yessenia 09/06/18 18:45 Blood Culture - Preliminary Blood Culture (Wb) - Right Forearm Laboratory Tests Past 24 Hrs 09/06/18 09/06/18 09/06/18 18:34 18:39 18:39 WBC 2.4 L RBC 4.47 Hgb 12.3 Hct 38.2 MCV 85.5 MCH 27.5 MCHC 32.2 RDW 15.5 H RDW Differential 47.6 H Plt Count 110 L MPV 10.0 Immature Gran % (Auto) 0.800 Neut % (Auto) 70.0 Lymph % (Auto) 22.9 Burke % (Auto) 5.1 Eos % (Auto) 0.8 Baso % (Auto) 0.4 Absolute Neuts (auto) 1.7 L Absolute Lymphs (auto) 0.54 L Total Counted Not Reportable Differential Comment Diff Path Review May foll Platelet Estimate SLT DEC RBC Morphology NORM C+C PT 14.4 INR 1.1 APTT 29.3 Sodium Potassium Chloride Carbon Dioxide Anion Gap BUN Creatinine Estim Creat Clear Calc Est GFR (MDRD) Af Amer Est GFR (MDRD) Non-Af BUN/Creatinine Ratio Glucose Lactic Acid Calcium Magnesium 1.9 Total Bilirubin AST ALT Alkaline Phosphatase Total Protein Albumin Globulin Albumin/Globulin Ratio Urine Color Urine Clarity Urine pH Ur Specific [place] Urine Protein Urine Glucose (UA) Urine Ketones Urine Occult Blood Urine Nitrite Urine Bilirubin Urine Urobilinogen Ur Leukocyte Esterase Urine RBC Urine WBC Ur Squamous Epith Cells Urine Bacteria Urine Mucus 09/06/18 09/06/18 09/06/18 18:39 18:45 19:00 WBC RBC Hgb Hct MCV MCH MCHC RDW RDW Differential Plt Count MPV Immature Gran % (Auto) Neut % (Auto) Lymph % (Auto) Burke % (Auto) Eos % (Auto) Baso % (Auto) Absolute Neuts (auto) Absolute Lymphs (auto) Total Counted Differential Comment Diff Path Review Platelet Estimate RBC Morphology PT INR APTT Sodium 145 Potassium 3.2 L Chloride 112 H Carbon Dioxide 24.0 Anion Gap 9 BUN 14 Creatinine 0.90 Estim Creat Clear Calc 43.06 Est GFR (MDRD) Af Amer 78 Est GFR (MDRD) Non-Af 64 BUN/Creatinine Ratio 15.6 Glucose 113 H Lactic Acid 1.6 Calcium 7.6 L Magnesium Total Bilirubin 1.40 H AST 39 H ALT 57 H Alkaline Phosphatase 70 Total Protein 6.0 L Albumin 2.7 L Globulin 3.3 Albumin/Globulin Ratio 0.8 L Urine Color Yellow Urine Clarity Turbid Urine pH 6.0 Ur Specific [place] 1.015 Urine Protein 100 H Urine Glucose (UA) Normal Urine Ketones Negative Urine Occult Blood 250 H Urine Nitrite Negative Urine Bilirubin Negative Urine Urobilinogen Normal Ur Leukocyte Esterase 500 H Urine RBC 0 SEEN Urine WBC >100 SEEN Ur Squamous Epith Cells 0 SEEN Urine Bacteria 0 SEEN Urine Mucus 0 SEEN 09/07/18 09/07/18 05:54 05:54 WBC 5.9 RBC 3.93 L Hgb 10.9 L Hct 34.4 L MCV 87.5 MCH 27.7 MCHC 31.7 L RDW 15.6 H RDW Differential 47.9 H Plt Count 98 L MPV 11.2 Immature Gran % (Auto) 0.300 Neut % (Auto) 61.1 Lymph % (Auto) 21.6 Burke % (Auto) 16.5 H Eos % (Auto) 0.3 Baso % (Auto) 0.2 Absolute Neuts (auto) 3.6 Absolute Lymphs (auto) 1.27 Total Counted Not Reportable Differential Comment Diff Path Review Platelet Estimate RBC Morphology PT INR APTT Sodium 145 Potassium 3.8 Chloride 114 H Carbon Dioxide 24.0 Anion Gap 7 BUN 15 Creatinine 0.86 Estim Creat Clear Calc 43.55 Est GFR (MDRD) Af Amer 81 Est GFR (MDRD) Non-Af 67 BUN/Creatinine Ratio 17.5 Glucose 111 H Lactic Acid Calcium 7.2 L Magnesium Total Bilirubin 1.00 AST 36 ALT 47 Alkaline Phosphatase 59 Total Protein 5.0 L Albumin 2.2 L Globulin 2.8 Albumin/Globulin Ratio 0.8 L Urine Color Urine Clarity Urine pH Ur Specific [place] Urine Protein Urine Glucose (UA) Urine Ketones Urine Occult Blood Urine Nitrite Urine Bilirubin Urine Urobilinogen Ur Leukocyte Esterase Urine RBC Urine WBC Ur Squamous Epith Cells Urine Bacteria Urine Mucus POC Glucose 09/06/18 18:32 POC Glucose 125 H Clinical Impression(s) from Imaging Studies Chest X-Ray 09/06/18 18:55 IMPRESSION: No acute pulmonary pathology of the chest. Electronically Signed: Hernando Karimi DO at 19:34 EST Tel [phone], Service support , Medical Necessity - Tobacco Use Smoking Status: Former smoker Assessment/Plan All Active Problems Acute cystitis (Acute) Sepsis (Acute) This is an 83 years old female patient presented to the emergency room because of fever, found to have sepsis secondary to acute cystitis and questionable pyelonephritis, also found to have gram-negative bacteremia. #1 acute cystitis/questionable pyelonephritis?sepsis: She is on IV Rocephin. Her vital signs are stable, afebrile. Upon admission, she was leukopenic and her absolute neutrophil count was 1700, today's WBC and ANC are back to normal. Blood culture revealed gram-negative rods, urine cultures pending. Patient denies any abdominal or flank pain. At this time, pyelonephritis questionable. Patient was discharged from the hospital 2 days ago and during that admission, she had urinalysis and urine culture and both were negative. Chest x-ray showed no acute findings. Plan: CT scan abdomen and pelvis without contrast, infectious disease consult. #2 recent admission for acute kidney injury/hyponatremia and encephalopathy: Patient was discharged from the hospital 2 days before this admission. Today, serum sodium and BUN as well as creatinine are normal. Her potassium was slightly low yesterday, was replaced and corrected. Plan to continue gentle IV fluids for hydration, encourage oral intake. Patient is awake and alert but she is not communicating. According to nursing staff, patient has history of dementia and she is not interactive but she is communicating with her family. #3 CAD status post CABG: Stable, continue aspirin. She is not on beta-blockers or JORDI inhibitors. #4 hypertension: Blood pressure stable, she is not on any antihypertensive medications. #5 inflammatory proctitis: Continue Plaquenil, Tylenol as needed. #6 anxiety/depression: Continue Lexapro. #7 DVT prophylaxis: Subcu heparin. This note was generated with [employer] software. It may contain incorrect words, spelling, and punctuation that were not noted in checking the note before signing. Code Visit Inpatient E&M: 65410 Subs Hosp L2
--- NOTE | 2018-09-07 10:30 | CASEMGMT ---
Addendum entered by Delaney Dhaliwal 09/07/18 16:12: Charge Nurse updated this worker that pt and pt's signed with Palliative Care. Original Note: Social Work Note Charge Nurse updated this worker that pt's is now wanting to meet with Palliative Care. SW placed a call to [facility] and per Eva Rivers from [facility] will be meeting with pt and pt's at 11:30am. Delaney Dhaliwal [employer], [employer]
--- NOTE | 2018-09-07 10:39 | CON.PCM_ITS ---
Problem List (1) Sepsis Status: Acute Reason for Consult: bacteremia Consulted by: Dr. Sanchez History of Present Illness: The patient is a 83 year old F who presented with acute onset of fever, lethargy, not feeling well. Admitted in August with MAGGY. Her daughter 2 weeks ago. providing history. No recent focal complaints. Taken to ED, started on ceftriaxone, now bcx with GNR. ROS unobtainable due to mental status - Medical History Past Medical History (Chronic Problems): Chronic Problems Inflammatory polyarthritis (Chronic) Hypertension (Chronic) Obesity (BMI 30.0-34.9) (Chronic) Hyperlipidemia (Chronic) CAD (coronary artery disease) (Chronic) Multiple stents Anxiety and depression (Chronic) Allergies/Adverse Reactions: Allergies Penicillins Allergy (Verified 09/06/18 18:24) Rash erythromycin base [Erythromycin Base] Adverse Reaction (Verified 09/06/18 18:24) Nausea/Vom/Diarrhea Sulfa (Sulfonamide Antibiotics) Adverse Reaction (Verified 09/06/18 18:24) Nausea/Vom/Diarrhea Home Medications: Ambulatory Orders Medication Instructions Recorded Aspirin 81 mg PO DAILY 07/26/18 Calcium Carbonate/Vitamin D3 1 each PO BID 07/26/18 [Oyster Shell 500-Vit D3 200 Tb] Cholecalciferol (VIT D3) [Vitamin 1,000 unit PO TUTHSA 07/26/18 D3] Cholecalciferol (VIT D3) [Vitamin 1,500 unit PO SUMOWEFR 07/26/18 D3] Escitalopram Oxalate 10 mg PO QHS 07/26/18 Folic Acid 0.4 mg PO DAILY 07/26/18 Hydroxychloroquine [Plaquenil] 300 mg PO DAILYCM 07/26/18 Multivitamin/Iron/Folic Acid 1 each PO DAILY 07/26/18 [Centrum Adults Tablet] Ensure Enlive 120 ml PO 4X/DAY #30 liquid 09/04/18 Acetaminophen [Tylenol Tablet] 650 mg PO Q6H PRN PRN 09/06/18 - Social History SMOKING STATUS:: Former smoker Vital Signs Temp Pulse Resp BP Pulse Ox 98.2 F 56 L 20 H 130/52 H 95 09/07/18 05:41 09/07/18 05:41 09/07/18 05:41 09/07/18 05:41 09/07/18 07:30 Oxygen Delivery Method Room Air Weight: 56.6 kg Body Mass Index (BMI) 20.7 Finger Stick Blood Glucose 125 Microbiology Past 72 Hours 09/06/18 18:39 Blood Culture - Preliminary Blood Culture (Wb) - Left Forearm Gram negative yessenia 09/06/18 18:45 Blood Culture - Preliminary Blood Culture (Wb) - Right Forearm Laboratory Tests Past 24 Hrs 09/06/18 09/06/18 09/06/18 18:34 18:39 18:39 WBC 2.4 L RBC 4.47 Hgb 12.3 Hct 38.2 MCV 85.5 MCH 27.5 MCHC 32.2 RDW 15.5 H RDW Differential 47.6 H Plt Count 110 L MPV 10.0 Immature Gran % (Auto) 0.800 Neut % (Auto) 70.0 Lymph % (Auto) 22.9 [place] % (Auto) 5.1 Eos % (Auto) 0.8 Baso % (Auto) 0.4 Absolute Neuts (auto) 1.7 L Absolute Lymphs (auto) 0.54 L Total Counted Not Reportable Differential Comment Diff Path Review May foll Platelet Estimate SLT DEC RBC Morphology NORM C+C PT 14.4 INR 1.1 APTT 29.3 Sodium Potassium Chloride Carbon Dioxide Anion Gap BUN Creatinine Estim Creat Clear Calc Est GFR (MDRD) Af Amer Est GFR (MDRD) Non-Af BUN/Creatinine Ratio Glucose Lactic Acid Calcium Magnesium 1.9 Total Bilirubin AST ALT Alkaline Phosphatase Total Protein Albumin Globulin Albumin/Globulin Ratio Urine Color Urine Clarity Urine pH Ur Specific [place] Urine Protein Urine Glucose (UA) Urine Ketones Urine Occult Blood Urine Nitrite Urine Bilirubin Urine Urobilinogen Ur Leukocyte Esterase Urine RBC Urine WBC Ur Squamous Epith Cells Urine Bacteria Urine Mucus 09/06/18 09/06/18 09/06/18 18:39 18:45 19:00 WBC RBC Hgb Hct MCV MCH MCHC RDW RDW Differential Plt Count MPV Immature Gran % (Auto) Neut % (Auto) Lymph % (Auto) [place] % (Auto) Eos % (Auto) Baso % (Auto) Absolute Neuts (auto) Absolute Lymphs (auto) Total Counted Differential Comment Diff Path Review Platelet Estimate RBC Morphology PT INR APTT Sodium 145 Potassium 3.2 L Chloride 112 H Carbon Dioxide 24.0 Anion Gap 9 BUN 14 Creatinine 0.90 Estim Creat Clear Calc 43.06 Est GFR (MDRD) Af Amer 78 Est GFR (MDRD) Non-Af 64 BUN/Creatinine Ratio 15.6 Glucose 113 H Lactic Acid 1.6 Calcium 7.6 L Magnesium Total Bilirubin 1.40 H AST 39 H ALT 57 H Alkaline Phosphatase 70 Total Protein 6.0 L Albumin 2.7 L Globulin 3.3 Albumin/Globulin Ratio 0.8 L Urine Color Yellow Urine Clarity Turbid Urine pH 6.0 Ur Specific [place] 1.015 Urine Protein 100 H Urine Glucose (UA) Normal Urine Ketones Negative Urine Occult Blood 250 H Urine Nitrite Negative Urine Bilirubin Negative Urine Urobilinogen Normal Ur Leukocyte Esterase 500 H Urine RBC 0 SEEN Urine WBC >100 SEEN Ur Squamous Epith Cells 0 SEEN Urine Bacteria 0 SEEN Urine Mucus 0 SEEN 09/07/18 09/07/18 05:54 05:54 WBC 5.9 RBC 3.93 L Hgb 10.9 L Hct 34.4 L MCV 87.5 MCH 27.7 MCHC 31.7 L RDW 15.6 H RDW Differential 47.9 H Plt Count 98 L MPV 11.2 Immature Gran % (Auto) 0.300 Neut % (Auto) 61.1 Lymph % (Auto) 21.6 [place] % (Auto) 16.5 H Eos % (Auto) 0.3 Baso % (Auto) 0.2 Absolute Neuts (auto) 3.6 Absolute Lymphs (auto) 1.27 Total Counted Not Reportable Differential Comment Diff Path Review Platelet Estimate RBC Morphology PT INR APTT Sodium 145 Potassium 3.8 Chloride 114 H Carbon Dioxide 24.0 Anion Gap 7 BUN 15 Creatinine 0.86 Estim Creat Clear Calc 43.55 Est GFR (MDRD) Af Amer 81 Est GFR (MDRD) Non-Af 67 BUN/Creatinine Ratio 17.5 Glucose 111 H Lactic Acid Calcium 7.2 L Magnesium Total Bilirubin 1.00 AST 36 ALT 47 Alkaline Phosphatase 59 Total Protein 5.0 L Albumin 2.2 L Globulin 2.8 Albumin/Globulin Ratio 0.8 L Urine Color Urine Clarity Urine pH Ur Specific [place] Urine Protein Urine Glucose (UA) Urine Ketones Urine Occult Blood Urine Nitrite Urine Bilirubin Urine Urobilinogen Ur Leukocyte Esterase Urine RBC Urine WBC Ur Squamous Epith Cells Urine Bacteria Urine Mucus - Other Studies Radiology: [] reviewed Other Studies: [] Route of nutrition/ use of supplements: [] Nutritional Intake: [] IV Site: [] Ramirez Catheter: [] - Physical Exam General: No apparent distress, - - able to follow some commands HEENT: Atraumatic, PERRLA, EOMI Neck: Supple, No Nodes Lungs: Clear to auscultation, Normal air movement Cardiovascular: Regular rate, Regular Rhythm Abdomen: Soft, Non Tender, Non-Distended Extremities: No edema Skin: No rashes IV Site: Peripheral, without redness Musculoskeletal: No Tenderness to Palpation of Joints or Extremities Neurological: Cranial nerves II-XII grossly intact - Assessment/Plan Antibiotics: [] Assessment/Plan: [] Active and Suspected Problems Acute cystitis (Acute) Sepsis (Acute) Pyelonephritis (Suspected) sepsis due to GNR bacteremia from suspected urinary source - broaden ceftriaxone to cefepime while cxs pending. CXR clear. Wbc improved. UA with heavy pyuria, ucx pending. Will follow, thank you.
[2018-09-07] MEDS: Aspirin 81 MG TAB.CHEW PO (11:12)
[2018-09-07] MEDS: Heparin Injection (Vial) 5,000 UNIT/ML VIAL 5000 UNIT SC ×2 (11:12→21:09)
[2018-09-07 12:35] LABS: Pathologist Review Reviewed
[2018-09-07] MEDS: 0.9% NaCl Peripheral Flush Adult/Peds IV (15:40)
--- NOTE | 2018-09-07 16:48 | CASEMGMT ---
Readmit Note: Previous admit: 09/01/18-09/05/18 DC Disposition: Home with [facility] RN, PT/OT and Palliative Care, 24 hour caregivers. Readmit: 09/06/18 with acute metabolic encephalopathy, dehydration and MAGGY -See previous CM note for details. -DC PLAN Home with caregivers, [facility] and will begin Palliative Care. Forrest BOLTON RN ACM
[2018-09-07] MEDS: Bisacodyl 5 MG Tablet 10 MG PO (21:09)
[2018-09-07] MEDS: Escitalopram Oxalate 10 MG Tablet PO (21:09)
[2018-09-07] MEDS: Acetaminophen 325 MG Tablet 650 MG PO (21:16)
[2018-09-08 02:30] VITALS: BP 151/50; PULSE 65; RESP 16; TEMP 36.6; O2SAT 98
[2018-09-08 06:24] LABS: Absolute Neutrophil Count 4.5 X10^3/uL (2.0-7.7); Basophil# 0.02 X10^3/uL; Basophil% 0.3 % (0-1); Eosinophil# 0.14 X10^3/uL; Eosinophils% 2.2 % (0-5); Hematocrit 35.1 % (37-47); Hemoglobin 10.9 g/dl (12.0-15.0); Lymphocyte % 15.6 % (19-41); Mean Corp Hgb Conc 31.1 g/gl (32-36); Mean Corpuscular Hgb 27.5 pg (27.0-32.0); Mean Corpuscular Volume 88.6 fL (81-99); Mean Platelet Vol. 11.4 fl (6.2-12.0); Monocyte# 0.77 X10^3/uL; Neutrophil # 4.45 X10^3/uL (2.7-7.7); Neutrophil % 69.6 % (47-70); Platelet Count 106 K/mm3 (150-450); RBC Distribution Width CV 15.7 % (11.6-14.6); RBC Distribution Width SD 49.5 fl (35.1-43.9); Red Blood Count 3.96 M/mm3 (4.2-5.4); White Blood Count 6.4 K/mm3 (4.4-11.0)
[2018-09-08 06:25] LABS: POSITIVE COUNT NO; POSITIVE DIFFERENTIAL NO; POSITIVE MORPHOLOGY NO
[2018-09-08 06:37] LABS: Anion Gap 6 (5-15); BUN 19 mg/dL (7-18); BUN/Creat Ratio 21.7 RATIO (10-20); Calcium,Total 7.6 mg/dL (8.5-10.1); Chloride 114 mmol/L (98-107); Creatinine, Serum 0.88 mg/dL (0.55-1.02); EST Glomerular Filtration Rate 66 mL/min (>60); Est Glom Filt Rate - Afr Amer 80 mL/min (>60); Estimated Creatinine Clearance 42.56 ml/min; Glucose 97 mg/dL (74-106); Potassium 3.4 mmol/L (3.5-5.1); Sodium Level 145 mmol/L (136-145)
[2018-09-08 08:04] VITALS: O2SAT 96
[2018-09-08 08:47] VITALS: BP 146/75; PULSE 64; RESP 16; TEMP 36.8; O2SAT 98
[2018-09-08] MEDS: Bisacodyl 5 MG Tablet 10 MG PO (08:57)
[2018-09-08] MEDS: Aspirin 81 MG TAB.CHEW PO (08:58)
[2018-09-08] MEDS: Hydroxychloroquine 200 MG Tablet 300 MG PO (08:58)
[2018-09-08] MEDS: 0.9% NaCl Peripheral Flush Adult/Peds IV (08:59)
--- NOTE | 2018-09-08 10:36 | PCM.PROGNOTE ---
Patient Problems: Active and Suspected Problems Sepsis (Acute) Pyelonephritis (Suspected) Subjective: Chief complaint: Follow-up after admission for sepsis secondary to acute cystitis and suspected pyelonephritis, found to have gram-negative bacteremia. Patient seen and examined. No acute events overnight. This morning she mentioned that she is not feeling well but she did not complain of any symptoms. She denied any pain. She has been not interacting with the staff or with us but mainly with the family. Her vital signs are stable. - Physical Exam General: Alert, Cooperative, No apparent distress HEENT: Atraumatic, PERRLA, EOMI, Normocephalic Oral: Moist Mucosa, No Gingival or Mucosal Lesions/ Ulcerations Neck: Supple, No JVD, Negative Carotid Bruits, Trachea Midline, Thyroid Normal Size and Texture Lungs: Clear to auscultation, No rhonchi, No wheeze, No rales, Diminished Cardiovascular: Regular rate, Regular Rhythm, Normal S1, Normal S2, PMI Normal Abdomen: Bowel Sounds Present, Soft, Non Tender, Non-Distended, No Hepato-splenomegaly Extremities: No clubbing, No cyanosis, No edema Skin: No rashes, No breakdown Lymphatic: No Cervical, Supraclavicular, or Inguinal Adenopathy Neurological: Cranial nerves II-XII grossly intact, Neuro grossly intact, - - Global weakness. Psych/Mental Status: Flat Affect Vital Signs Temp Pulse Resp BP Pulse Ox 98.2 F 64 16 146/75 H 98 09/08/18 08:47 09/08/18 08:47 09/08/18 08:47 09/08/18 08:47 09/08/18 08:47 Oxygen Delivery Method Room Air Weight: 124 lb 12.506 oz Body Mass Index (BMI) 20.7 Finger Stick Blood Glucose 125 Intake and Output for Last 24 Hours 09/06/18 09/07/18 09/08/18 23:59 23:59 23:59 Intake Total 1853 / 1853 265 / 265 Output Total 400 / 400 Balance 1453 / 1453 265 / 265 Microbiology Past 72 Hours 09/06/18 19:00 Urine Culture - Final Urine Catheter - Catheter Presumptive E. coli 09/06/18 18:39 Blood Culture - Final Blood Culture (Wb) - Left Forearm GNR lactose freight inspector 09/06/18 18:45 Blood Culture - Preliminary Blood Culture (Wb) - Right Forearm GNR lactose freight inspector Laboratory Tests Past 24 Hrs 09/06/18 09/08/18 09/08/18 18:39 06:10 06:10 WBC 6.4 RBC 3.96 L Hgb 10.9 L Hct 35.1 L MCV 88.6 MCH 27.5 MCHC 31.1 L RDW 15.7 H RDW Differential 49.5 H Plt Count 106 L MPV 11.4 Immature Gran % (Auto) 0.300 Neut % (Auto) 69.6 Lymph % (Auto) 15.6 L [place] % (Auto) 12.0 H Eos % (Auto) 2.2 Baso % (Auto) 0.3 Absolute Neuts (auto) 4.5 Absolute Lymphs (auto) 1.00 Total Counted Not Reportable Diff Path Review Reviewed Sodium 145 Potassium 3.4 L Chloride 114 H Carbon Dioxide 25.0 Anion Gap 6 BUN 19 H Creatinine 0.88 Estim Creat Clear Calc 42.56 Est GFR (MDRD) Af Amer 80 Est GFR (MDRD) Non-Af 66 BUN/Creatinine Ratio 21.7 H Glucose 97 Calcium 7.6 L Microbiology 09/06/18 19:00 Urine Catheter - Catheter Urine Culture - Final Presumptive E. coli 09/06/18 18:39 Blood Culture (Wb) - Left Forearm Blood Culture - Final GNR lactose freight inspector 09/06/18 18:45 Blood Culture (Wb) - Right Forearm Blood Culture - Preliminary GNR lactose freight inspector Medical Necessity - Tobacco Use Smoking Status: Former smoker Assessment/Plan All Active Problems Acute cystitis (Acute) Sepsis (Acute) This is an 83 years old female patient presented to the emergency room because of fever, found to have sepsis secondary to acute cystitis and questionable pyelonephritis, also found to have gram-negative bacteremia. #1 acute cystitis/sepsis: Started on IV cefepime. Her vital signs are stable, afebrile, WBC and absolute neutrophil count is back to normal. Urine culture revealed presumptive E. coli which is pansensitive. Blood culture revealed gram-negative rods, final is pending. CT scan abdomen revealed normal right and left kidney, no evidence of obstructive uropathy. Acute pyelonephritis ruled out. Plan to continue same treatment. #2 gram-negative bacteremia: Likely source is the urine, she is on IV cefepime as above. Blood culture revealed gram-negative rods, final is pending. Infectious disease on the case, plan to continue same treatment, will need repeat blood culture tomorrow. #3 recent admission for acute kidney injury/hyponatremia and encephalopathy: Her sodium is normal, kidney function stable, potassium 3.4 and she was given potassium replacement. #3 CAD status post CABG: Stable, continue aspirin. She is not on beta-blockers or JORDI inhibitors. #4 hypertension: Blood pressure stable, she is not on any antihypertensive medications. #5 inflammatory proctitis: Continue Plaquenil, Tylenol as needed. #6 anxiety/depression: Continue Lexapro. #7 DVT prophylaxis: Subcu heparin. This note was generated with [employer] dictation software. It may contain incorrect words, spelling, and punctuation that were not noted in checking the note before signing. Code Visit Inpatient E&M: 56916 Subs Hosp L2
--- NOTE | 2018-09-08 10:40 | PN_ITS ---
Patient Problems: Active and Suspected Problems Sepsis (Acute) Pyelonephritis (Suspected) Subjective: Chief complaint: Follow-up after admission for sepsis secondary to acute cystitis and suspected pyelonephritis, found to have gram-negative bacteremia. Patient seen and examined. No acute events overnight. This morning she men tioned that she is not feeling well but she did not complain of any symptoms. She denied any pain. She has been not interacting with the staff or with us but mainly with the family. Her vital signs are stable. - Physical Exam General: Alert, Cooperative, No apparent distress HEENT: Atraumatic, PERRLA, EOMI, Normocephalic Oral: Moist Mucosa, No Gingival or Mucosal Lesions/ Ulcerations Neck: Supple, No JVD, Negative Carotid Bruits, Trachea Midline, Thyroid Normal Size and Texture Lungs: Clear to auscultation, No rhonchi, No wheeze, No rales, Diminished Cardiovascular: Regular rate, Regular Rhythm, Normal S1, Normal S2, PMI Normal Abdomen: Bowel Sounds Present, Soft, Non Tender, Non-Distended, No Hepato- splenomegaly Extremities: No clubbing, No cyanosis, No edema Skin: No rashes, No breakdown Lymphatic: No Cervical, Supraclavicular, or Inguinal Adenopathy Neurological: Cranial nerves II-XII grossly intact, Neuro grossly intact, - - Global weakness. Psych/Mental Status: Flat Affect Vital Signs Temp Pulse Resp BP Pulse Ox 98.2 F 64 16 146/75 H 98 09/08/18 08:47 09/08/18 08:47 09/08/18 08:47 09/08/18 08:47 09/08/18 08:47 Oxygen Delivery Method Room Air Weight: 124 lb 12.506 oz Body Mass Index (BMI) 20.7 Finger Stick Blood Glucose 125 Intake and Output for Last 24 Hours 09/06/18 09/07/18 09/08/18 23:59 23:59 23:59 Intake Total 1853 / 1853 265 / 265 Output Total 400 / 400 Balance 1453 / 1453 265 / 265 Microbiology Past 72 Hours 09/06/18 19:00 Urine Culture - Final Urine Catheter - Catheter Presumptive E. coli 09/06/18 18:39 Blood Culture - Final Blood Culture (Wb) - Left Forearm GNR lactose crown attacher 09/06/18 18:45 Blood Culture - Preliminary Blood Culture (Wb) - Right Forearm GNR lactose crown attacher Laboratory Tests Past 24 Hrs 09/06/18 09/08/18 09/08/18 18:39 06:10 06:10 WBC 6.4 RBC 3.96 L Hgb 10.9 L Hct 35.1 L MCV 88.6 MCH 27.5 MCHC 31.1 L RDW 15.7 H RDW Differential 49.5 H Plt Count 106 L MPV 11.4 Immature Gran % (Auto) 0.300 Neut % (Auto) 69.6 Lymph % (Auto) 15.6 L [place] % (Auto) 12.0 H Eos % (Auto) 2.2 Baso % (Auto) 0.3 Absolute Neuts (auto) 4.5 Absolute Lymphs (auto) 1.00 Total Counted Not Reportable Diff Path Review Reviewed Sodium 145 Potassium 3.4 L Chloride 114 H Carbon Dioxide 25.0 Anion Gap 6 BUN 19 H Creatinine 0.88 Estim Creat Clear Calc 42.56 Est GFR (MDRD) Af Amer 80 Est GFR (MDRD) Non-Af 66 BUN/Creatinine Ratio 21.7 H Glucose 97 Calcium 7.6 L Microbiology 09/06/18 19:00 Urine Catheter - Catheter Urine Culture - Final Presumptive E. coli 09/06/18 18:39 Blood Culture (Wb) - Left Forearm Blood Culture - Final GNR lactose crown attacher 09/06/18 18:45 Blood Culture (Wb) - Right Forearm Blood Culture - Preliminary GNR lactose crown attacher Medical Necessity - Tobacco Use Smoking Status: Former smoker Assessment/Plan All Active Problems Acute cystitis (Acute) Sepsis (Acute) This is an 83 years old female patient presented to the emergency room because of fever, found to have sepsis secondary to acute cystitis and questionable pyelonephritis, also found to have gram-negative bacteremia. #1 acute cystitis/sepsis: Started on IV cefepime. Her vital signs are stable, afebrile, WBC and absolute neutrophil count is back to normal. Urine culture revealed presumptive E. coli which is pansensitive. Blood culture revealed gram-negative rods, final is pending. CT scan abdomen revealed normal right and left kidney, no evidence of obstructive uropathy. Acute pyelonephritis ruled out. Plan to continue same treatment. #2 gram-negative bacteremia: Likely source is the urine, she is on IV cefepime as above. Blood culture revealed gram-negative rods, final is pending. Infectious disease on the case, plan to continue same treatment, will need repeat blood culture tomorrow. #3 recent admission for acute kidney injury/hyponatremia and encephalopathy: Her sodium is normal, kidney function stable, potassium 3.4 and she was given potassium replacement. #3 CAD status post CABG: Stable, continue aspirin. She is not on beta-blockers or JORDI inhibitors. #4 hypertension: Blood pressure stable, she is not on any antihypertensive medications. #5 inflammatory proctitis: Continue Plaquenil, Tylenol as needed. #6 anxiety/depression: Continue Lexapro. #7 DVT prophylaxis: Subcu heparin. This note was generated with [employer] dictation software. It may contain incorrect words, spelling, and punctuation that were not noted in checking the note before signing. Code Visit Inpatient E&M: 24885 Subs Hosp L2
[2018-09-08] MEDS: Heparin Injection (Vial) 5,000 UNIT/ML VIAL 5000 UNIT SC ×2 (11:24→22:47)
--- NOTE | 2018-09-08 14:00 | CASEMGMT ---
SW spoke w/pt's in the hallway. SW offered support to given the situation of caring for his and losing his daughter recently. Pt's spoke about it briefly, support given. SW let know SW remains available should he want to speak further. DEBBIE Gross, DIRECTOR CLINICAL PHARMACOLOGY
[2018-09-08 15:04] VITALS: BP 137/55; PULSE 60; RESP 18; TEMP 36.2; O2SAT 98
--- NOTE | 2018-09-08 15:37 | PN.ID_ITS ---
Patient Problems: Active and Suspected Problems Sepsis (Acute) Pyelonephritis (Suspected) Subjective: Remains poorly responsive. No fever, no abd pain. - Physical Exam General: No apparent distress, Lethargic Lungs: Clear to auscultation, Normal air movement Cardiovascular: Regular rate, Regular Rhythm Abdomen: Soft, Non Tender, Non-Distended Skin: No rashes Vital Signs Temp Pulse Resp BP Pulse Ox 97.2 F L 60 18 137/55 H 98 09/08/18 15:04 09/08/18 15:04 09/08/18 15:04 09/08/18 15:04 09/08/18 15:04 Oxygen Delivery Method Room Air Weight: 56.6 kg Body Mass Index (BMI) 20.7 Finger Stick Blood Glucose 125 Intake and Output for Last 24 Hours 09/06/18 09/07/18 09/08/18 23:59 23:59 23:59 Intake Total 1853 / 1853 740 / 740 Output Total 400 / 400 Balance 1453 / 1453 740 / 740 Microbiology Past 72 Hours 09/06/18 19:00 Urine Culture - Final Urine Catheter - Catheter Presumptive E. coli 09/06/18 18:39 Blood Culture - Final Blood Culture (Wb) - Left Forearm GNR lactose nutritional services host 09/06/18 18:45 Blood Culture - Preliminary Blood Culture (Wb) - Right Forearm GNR lactose nutritional services host Laboratory Tests Past 24 Hrs 09/08/18 09/08/18 06:10 06:10 WBC 6.4 RBC 3.96 L Hgb 10.9 L Hct 35.1 L MCV 88.6 MCH 27.5 MCHC 31.1 L RDW 15.7 H RDW Differential 49.5 H Plt Count 106 L MPV 11.4 Immature Gran % (Auto) 0.300 Neut % (Auto) 69.6 Lymph % (Auto) 15.6 L [place] % (Auto) 12.0 H Eos % (Auto) 2.2 Baso % (Auto) 0.3 Absolute Neuts (auto) 4.5 Absolute Lymphs (auto) 1.00 Total Counted Not Reportable Sodium 145 Potassium 3.4 L Chloride 114 H Carbon Dioxide 25.0 Anion Gap 6 BUN 19 H Creatinine 0.88 Estim Creat Clear Calc 42.56 Est GFR (MDRD) Af Amer 80 Est GFR (MDRD) Non-Af 66 BUN/Creatinine Ratio 21.7 H Glucose 97 Calcium 7.6 L Medical Necessity - Tobacco Use Smoking Status: Former smoker Route of nutrition/ use of supplements: [] Nutritional Intake: [] IV Site: [] Ramirez Catheter: [] - Assessment/Plan Antibiotics: [] Assessment/Plan: [] Active and Suspected Problems Acute cystitis (Acute) Sepsis (Acute) Pyelonephritis (Suspected) sepsis due to GNR bacteremia from suspected urinary source - on cefepime while cxs pending. CXR clear. Wbc improved. UA with heavy pyuria, ucx with ecoli. Repeat bcx today. May be candidate for po abx depending on further cx data. Will follow
[2018-09-08] MEDS: Escitalopram Oxalate 10 MG Tablet PO (22:47)
[2018-09-09] VITALS: BP 146/58; PULSE 65; RESP 16; TEMP 37; O2SAT 95
[2018-09-09 07:27] VITALS: O2SAT 95
[2018-09-09 08:29] VITALS: BP 136/87; PULSE 62; RESP 16; TEMP 36.8; O2SAT 98
[2018-09-09] MEDS: Heparin Injection (Vial) 5,000 UNIT/ML VIAL 5000 UNIT SC (09:59)
--- NOTE | 2018-09-09 10:10 | PCM.PROGNOTE ---
Patient Problems: Active and Suspected Problems Sepsis (Acute) Pyelonephritis (Suspected) Subjective: Chief complaint: Follow-up after admission for sepsis secondary to acute cystitis , found to have E. coli bacteremia. Patient seen and examined. No acute events overnight. This morning, she is stated, not retracting with her caregiver or with me. This is usual for her, sometimes she communicates and sometimes not. Her vital signs are stable. - Physical Exam General: Alert, Cooperative, No apparent distress HEENT: Atraumatic, PERRLA, EOMI, Normocephalic Oral: Moist Mucosa, No Gingival or Mucosal Lesions/ Ulcerations Neck: Supple, No JVD, Negative Carotid Bruits, Trachea Midline, Thyroid Normal Size and Texture Lungs: Clear to auscultation, No rhonchi, No wheeze, No rales, Diminished Cardiovascular: Regular rate, Regular Rhythm, Normal S1, Normal S2, PMI Normal Abdomen: Bowel Sounds Present, Soft, Non Tender, Non-Distended, No Hepato-splenomegaly Extremities: No clubbing, No cyanosis, No edema Skin: No rashes, No breakdown Lymphatic: No Cervical, Supraclavicular, or Inguinal Adenopathy Neurological: Cranial nerves II-XII grossly intact, Neuro grossly intact Psych/Mental Status: Flat Affect Vital Signs Temp Pulse Resp BP Pulse Ox 98.2 F 62 16 136/87 H 98 09/09/18 08:29 09/09/18 08:29 09/09/18 08:29 09/09/18 08:29 09/09/18 08:29 Oxygen Delivery Method Room Air Weight: 124 lb 12.506 oz Body Mass Index (BMI) 20.7 Finger Stick Blood Glucose 125 Intake and Output for Last 24 Hours 09/07/18 09/08/18 09/09/18 23:59 23:59 23:59 Intake Total 1853 / 1853 1190 / 1190 125 / 125 Output Total 400 / 400 Balance 1453 / 1453 1190 / 1190 125 / 125 Microbiology Past 72 Hours 09/06/18 18:45 Blood Culture - Final Blood Culture (Wb) - Right Forearm Escherichia coli 09/06/18 19:00 Urine Culture - Final Urine Catheter - Catheter Presumptive E. coli 09/06/18 18:39 Blood Culture - Final Blood Culture (Wb) - Left Forearm GNR lactose aircraft de icer installer Medical Necessity - Tobacco Use Smoking Status: Former smoker Assessment/Plan All Active Problems Acute cystitis (Acute) Sepsis (Acute) This is an 83 years old female patient presented to the emergency room because of fever, found to have sepsis secondary to acute cystitis and questionable pyelonephritis, also found to have gram-negative bacteremia. #1 acute cystitis/sepsis: She is on IV cefepime. Her vital signs are stable, afebrile, WBC and absolute neutrophil count is back to normal. Urine culture revealed presumptive E. coli which is pansensitive. Blood culture revealed E. coli as well. Repeat blood cultures pending. CT scan abdomen revealed normal right and left kidney, no evidence of obstructive uropathy. Plan to continue same treatment. #2 E. coli bacteremia: Likely source is the urine, she is on IV cefepime as above. Blood culture revealed E. coli. Infectious disease on the case, plan to continue same treatment, repeat blood cultures pending #3 recent admission for acute kidney injury/hyponatremia and encephalopathy: Her sodium is normal, kidney function stable, potassium 3.4 and she was given potassium replacement. #3 CAD status post CABG: Stable, continue aspirin. She is not on beta-blockers or JORDI inhibitors. #4 hypertension: Blood pressure stable, she is not on any antihypertensive medications. #5 inflammatory proctitis: Continue Plaquenil, Tylenol as needed. #6 anxiety/depression: Continue Lexapro. #7 DVT prophylaxis: Subcu heparin. This note was generated with [employer] software. It may contain incorrect words, spelling, and punctuation that were not noted in checking the note before signing. Code Visit Inpatient E&M: 81821 Subs Hosp L2
--- NOTE | 2018-09-09 10:13 | PN_ITS ---
Patient Problems: Active and Suspected Problems Sepsis (Acute) Pyelonephritis (Suspected) Subjective: Chief complaint: Follow-up after admission for sepsis secondary to acute cystitis , found to have E. coli bacteremia. Patient seen and examined. No acute events overnight. This morning, she is stated, not retracting with her caregiver or with me. This is usual for her, sometimes she communicates and sometimes not. Her vital signs are stable. - Physical Exam General: Alert, Cooperative, No apparent distress HEENT: Atraumatic, PERRLA, EOMI, Normocephalic Oral: Moist Mucosa, No Gingival or Mucosal Lesions/ Ulcerations Neck: Supple, No JVD, Negative Carotid Bruits, Trachea Midline, Thyroid Normal Size and Texture Lungs: Clear to auscultation, No rhonchi, No wheeze, No rales, Diminished Cardiovascular: Regular rate, Regular Rhythm, Normal S1, Normal S2, PMI Normal Abdomen: Bowel Sounds Present, Soft, Non Tender, Non-Distended, No Hepato- splenomegaly Extremities: No clubbing, No cyanosis, No edema Skin: No rashes, No breakdown Lymphatic: No Cervical, Supraclavicular, or Inguinal Adenopathy Neurological: Cranial nerves II-XII grossly intact, Neuro grossly intact Psych/Mental Status: Flat Affect Vital Signs Temp Pulse Resp BP Pulse Ox 98.2 F 62 16 136/87 H 98 09/09/18 08:29 09/09/18 08:29 09/09/18 08:29 09/09/18 08:29 09/09/18 08:29 Oxygen Delivery Method Room Air Weight: 124 lb 12.506 oz Body Mass Index (BMI) 20.7 Finger Stick Blood Glucose 125 Intake and Output for Last 24 Hours 09/07/18 09/08/18 09/09/18 23:59 23:59 23:59 Intake Total 1853 / 1853 1190 / 1190 125 / 125 Output Total 400 / 400 Balance 1453 / 1453 1190 / 1190 125 / 125 Microbiology Past 72 Hours 09/06/18 18:45 Blood Culture - Final Blood Culture (Wb) - Right Forearm Escherichia coli 09/06/18 19:00 Urine Culture - Final Urine Catheter - Catheter Presumptive E. coli 09/06/18 18:39 Blood Culture - Final Blood Culture (Wb) - Left Forearm GNR lactose medical affairs specialist Medical Necessity - Tobacco Use Smoking Status: Former smoker Assessment/Plan All Active Problems Acute cystitis (Acute) Sepsis (Acute) This is an 83 years old female patient presented to the emergency room because of fever, found to have sepsis secondary to acute cystitis and questionable pyelonephritis, also found to have gram-negative bacteremia. #1 acute cystitis/sepsis: She is on IV cefepime. Her vital signs are stable, afebrile, WBC and absolute neutrophil count is back to normal. Urine culture revealed presumptive E. coli which is pansensitive. Blood culture revealed E. coli as well. Repeat blood cultures pending. CT scan abdomen revealed normal right and left kidney, no evidence of obstructive uropathy. Plan to continue same treatment. #2 E. coli bacteremia: Likely source is the urine, she is on IV cefepime as above. Blood culture revealed E. coli. Infectious disease on the case, plan to continue same treatment, repeat blood cultures pending #3 recent admission for acute kidney injury/hyponatremia and encephalopathy: Her sodium is normal, kidney function stable, potassium 3.4 and she was given potassium replacement. #3 CAD status post CABG: Stable, continue aspirin. She is not on beta-blockers or JORDI inhibitors. #4 hypertension: Blood pressure stable, she is not on any antihypertensive medications. #5 inflammatory proctitis: Continue Plaquenil, Tylenol as needed. #6 anxiety/depression: Continue Lexapro. #7 DVT prophylaxis: Subcu heparin. This note was generated with [employer]inks[employer] software. It may contain incorrect words, spelling, and punctuation that were not noted in checking the note before signing. Code Visit Inpatient E&M: 87784 Subs Hosp L2
[2018-09-09 11:29] VITALS: BP 138/111; PULSE 72; RESP 16; TEMP 36.4; O2SAT 95
[2018-09-09] MEDS: Hydroxychloroquine 200 MG Tablet 300 MG PO (13:16)
[2018-09-09] MEDS: Aspirin 81 MG TAB.CHEW PO (13:17)
[2018-09-09 14:58] VITALS: BP 138/45; PULSE 61; RESP 16; TEMP 36.9; O2SAT 100
[2018-09-09] MEDS: Escitalopram Oxalate 10 MG Tablet PO (22:11)
[2018-09-09] MEDS: Bisacodyl 5 MG Tablet 10 MG PO (22:11)
[2018-09-09] MEDS: 0.9% NaCl Peripheral Flush Adult/Peds IV ×2 (22:11→22:21)
[2018-09-09 22:23] VITALS: BP 140/53; PULSE 62; RESP 20; TEMP 36.7; O2SAT 97
--- NOTE | 2018-09-09 22:25 | NURSING ---
Pt refusing heparin injection.
[2018-09-10 04:25] VITALS: BP 141/85; PULSE 65; RESP 18; TEMP 36.4; O2SAT 96
[2018-09-10 07:20] VITALS: O2SAT 94
[2018-09-10 07:44] VITALS: BP 139/65; PULSE 57; RESP 16; TEMP 36.4; O2SAT 96
[2018-09-10] MEDS: Hydroxychloroquine 200 MG Tablet 300 MG PO (10:04)
[2018-09-10] MEDS: Aspirin 81 MG TAB.CHEW PO (10:05)
[2018-09-10] MEDS: Bisacodyl 5 MG Tablet 10 MG PO (10:05)
[2018-09-10] MEDS: Heparin Injection (Vial) 5,000 UNIT/ML VIAL 5000 UNIT SC ×2 (10:13→21:58)
--- NOTE | 2018-09-10 10:22 | PCM.PROGNOTE ---
Patient Problems: Active and Suspected Problems Sepsis (Acute) Pyelonephritis (Suspected) Subjective: Chief complaint: Follow-up after admission for sepsis secondary to acute cystitis , found to have E. coli bacteremia. Patient seen and examined. No acute events overnight. Today, she is more interactive, talking to me. She denied any pain. She did not open her eyes when I requested her to do so. She was appropriate. Her vital signs are stable. - Physical Exam General: Alert, Cooperative, No apparent distress HEENT: Atraumatic, PERRLA, EOMI, Normocephalic Oral: Moist Mucosa, No Gingival or Mucosal Lesions/ Ulcerations Neck: Supple, No JVD, Negative Carotid Bruits, Trachea Midline, Thyroid Normal Size and Texture Lungs: Clear to auscultation, No rhonchi, No wheeze, No rales, Diminished Cardiovascular: Regular rate, Regular Rhythm, Normal S1, Normal S2, PMI Normal Abdomen: Bowel Sounds Present, Soft, Non Tender, Non-Distended, No Hepato-splenomegaly Extremities: No clubbing, No cyanosis, No edema Skin: No rashes, No breakdown Lymphatic: No Cervical, Supraclavicular, or Inguinal Adenopathy Neurological: Cranial nerves II-XII grossly intact, Neuro grossly intact Psych/Mental Status: Flat Affect Vital Signs Temp Pulse Resp BP Pulse Ox 97.6 F L 57 L 16 139/65 H 96 09/10/18 07:44 09/10/18 07:44 09/10/18 07:44 09/10/18 07:44 09/10/18 07:44 Oxygen Delivery Method Room Air Weight: 124 lb 12.506 oz Body Mass Index (BMI) 20.7 Finger Stick Blood Glucose 125 Intake and Output for Last 24 Hours 09/08/18 09/09/18 09/10/18 23:59 23:59 23:59 Intake Total 1190 / 1190 575 / 575 410 / 410 Balance 1190 / 1190 575 / 575 410 / 410 Microbiology Past 72 Hours 09/06/18 18:45 Blood Culture - Final Blood Culture (Wb) - Right Forearm Escherichia coli 09/06/18 19:00 Urine Culture - Final Urine Catheter - Catheter Presumptive E. coli 09/06/18 18:39 Blood Culture - Final Blood Culture (Wb) - Left Forearm GNR lactose leather cutter Medical Necessity - Tobacco Use Smoking Status: Former smoker Assessment/Plan All Active Problems Acute cystitis (Acute) Sepsis (Acute) This is an 83 years old female patient presented to the emergency room because of fever, found to have sepsis secondary to acute cystitis and questionable pyelonephritis, also found to have gram-negative bacteremia. #1 acute cystitis/sepsis: Remained on IV cefepime. Her vital signs are stable, afebrile, WBC and absolute neutrophil count is back to normal. Urine culture revealed presumptive E. coli which is pansensitive. Blood culture revealed E. coli as well. Repeat blood cultures pending. CT scan abdomen revealed normal right and left kidney, no evidence of obstructive uropathy. Plan to continue same treatment, possible DC home tomorrow. #2 E. coli bacteremia: Likely source is the urine, she is on IV cefepime as above. Blood culture revealed E. coli. Infectious disease on the case, plan to continue same treatment, repeat blood cultures pending #3 recent admission for acute kidney injury/hyponatremia and encephalopathy: Her sodium is normal, kidney function stable, potassium 3.4 and she was given potassium replacement. #3 CAD status post CABG: Stable, continue aspirin. She is not on beta-blockers or JORDI inhibitors. #4 hypertension: Blood pressure stable, she is not on any antihypertensive medications. #5 inflammatory proctitis: Continue Plaquenil, Tylenol as needed. #6 anxiety/depression: Continue Lexapro. #7 DVT prophylaxis: Subcu heparin. This note was generated with [employer] dictation software. It may contain incorrect words, spelling, and punctuation that were not noted in checking the note before signing. Code Visit Inpatient E&M: 33545 Subs Hosp L2
[2018-09-10 14:43] VITALS: BP 143/68; PULSE 64; RESP 16; TEMP 37.2; O2SAT 97
[2018-09-10 21:45] VITALS: BP 135/51; PULSE 62; RESP 16; TEMP 37.4; O2SAT 98
[2018-09-11 03:42] VITALS: BP 150/59; PULSE 60; RESP 16; TEMP 36.6; O2SAT 98
[2018-09-11 08:52] VITALS: BP 144/90; PULSE 63; RESP 18; TEMP 37.3; O2SAT 95
[2018-09-11] MEDS: Aspirin 81 MG TAB.CHEW PO (08:57)
[2018-09-11] MEDS: Heparin Injection (Vial) 5,000 UNIT/ML VIAL 5000 UNIT SC (08:57)
[2018-09-11] MEDS: Hydroxychloroquine 200 MG Tablet 300 MG PO (08:57)
[2018-09-11] MEDS: Bisacodyl 5 MG Tablet 10 MG PO (08:57)
[2018-09-11] MEDS: 0.9% NaCl Peripheral Flush Adult/Peds IV (09:02)
--- NOTE | 2018-09-11 11:51 | PCM.DC ---
- Discharge Diagnoses Current Active Problems: Current Active and Chronic Problems Sepsis (Acute) You will use the following diet at home:: Cardiac - regular textured thin liquid diet with aspiration precautions- supervision with total feed prn, feed only when alert, seat upright at 90 degrees with PO intake, medications with purees Your food should be the consistency of: Regular Your liquids should be the consistency of: Regular/Thin Discharge Activity: Return to Normal Activity Weight Bearing Status: Weight bearing as tolerated Call your doctor if you observe: Fever of 101 or Higher, Shortness of breath Instructions: Understanding Urinary Tract Infections (UTIs), Sepsis Allergies/Adverse Reactions: Allergies Penicillins Allergy (Verified 09/06/18 18:24) Rash erythromycin base [Erythromycin Base] Adverse Reaction (Verified 09/06/18 18:24) Nausea/Vom/Diarrhea Sulfa (Sulfonamide Antibiotics) Adverse Reaction (Verified 09/06/18 18:24) Nausea/Vom/Diarrhea Medications to take at Discharge Aspirin 81 mg PO DAILY 07/26/18 Calcium Carbonate/Vitamin D3 [Oyster Shell 500-Vit D3 200 Tb] 1 each PO BID 07/26/18 Cholecalciferol (VIT D3) [Vitamin D3] 1,000 unit PO TUTHSA 07/26/18 Cholecalciferol (VIT D3) [Vitamin D3] 1,500 unit PO SUMOWEFR 07/26/18 Escitalopram Oxalate 10 mg PO QHS 07/26/18 Folic Acid 0.4 mg PO DAILY 07/26/18 Hydroxychloroquine [Plaquenil] 300 mg PO DAILYCM 07/26/18 Multivitamin/Iron/Folic Acid [Centrum Adults Tablet] 1 each PO DAILY 07/26/18 Ensure Enlive 120 ml PO 4X/DAY #30 liquid 09/04/18 Acetaminophen [Tylenol Tablet] 650 mg PO Q6H PRN PRN 09/06/18 Cephalexin [Keflex] 500 mg PO Q8 6 Days #18 capsule 09/11/18 The following prescriptions were given: Cephalexin [Keflex] 500 mg PO Q8 6 Days #18 capsule Primary Care Physician: Jacobo Kearney MD [Primary Care Provider] - Please follow up with your Primary Care Physician in: one week Test Results: Test results from this visit will be discussed in further detail at your follow-up appointment, if applicable. Please Follow Up With: Price Jaime MD When: 1-2 weeks Proposed Discharge Date: 09/11/18
--- NOTE | 2018-09-11 11:54 | DS.PCM_ITS ---
Discharge Date and Diagnosis - Problem List Patient Problems: Active and Suspected Problems Sepsis (Acute) Pyelonephritis (Suspected) Date of Admission: 09/06/18 Date of Discharge: 09/11/18 - Primary Discharge Diagnosis Active and Suspected Problems Sepsis (Acute) Pyelonephritis (Suspected) - Secondary Discharge Diagnosis Chronic Problems Inflammatory polyarthritis (Chronic) Hypertension (Chronic) Obesity (BMI 30.0-34.9) (Chronic) Hyperlipidemia (Chronic) CAD (coronary artery disease) (Chronic) Multiple stents Anxiety and depression (Chronic) Hospital Course and Treatment Imaging Results: Diagnostic Data Chest X-Ray 09/06/18 18:55 IMPRESSION: No acute pulmonary pathology of the chest. Electronically Signed: Hernando Karimi DO at 19:34 EST Tel [phone], Service support , Abdomen/Pelvis CT 09/07/18 09:28 IMPRESSION: Thickening of the urinary bladder wall. Air is seen within the urinary bladder. This most likely secondary to recent Ramirez catheter manipulation. Fecal material is seen in the colon worse in the rectosigmoid colon. Electronically Signed: Vitaliy Mandujano MD at 10:26 EST , Service support , Dr Jaime- Infectious disease Operations: None Procedures: None Summary of Care Provided: The patient is a 83 year old F past medical history significant for CAD status post CABG and stents, rheumatoid arthritis, hypertension hyperlipidemia. She was admitted with a complaint of fever and chills which started on the day of admission. Temperature at home was noted to peak at 101 Fahrenheit. She had recently been admitted in August and discharged after 3 weeks in early September to be managed for acute metabolic encephalopathy, AK I dehydration. During this index admission, she was found to be tachypneic and tachycardic and was managed for sepsis due to pyelonephritis. Blood cultures were taken and patient was started on IV ceftriaxone. She was also managed for acute metabolic encephalopathy likely due to pyelonephritis. She was also noted to have hypokalemia and this resolved with replacement of potassium. ID was consulted. Blood culture E. coli and antibiotics were switched to IV cefepime. Urine also cultured E. coli and CT of the abdomen revealed normal kidneys with no evidence of obstructive uropathy. Patient remained stable and fever and tachycardia and tachypnea resolved. She was discharged home with home health care on 09/11/2018 with a prescription for p.o. Keflex for 6 days after discussion with ID. Although patient has penicillin allergy listed, she tolerated IV cefepime very well without any issues and so per discussion with ID, patient was sent home on p.o. Keflex. She is follow-up with her primary care doctor in 1 week. Seen and examined prior to discharge. She had no complaints but did seem a bit confused and really answer questions. Apparently this is her baseline. Unable to do review of systems on account of confusion. o/e: Vital Signs Height 5 ft 4.96 in Weight: 124 lb 12.506 oz Weight in Pounds 124.8 lbs Pulse Ox 94 Temperature 99.1 F Pulse Rate 68 Respiratory Rate 16 Blood Pressure 133/57 Blood Pressure Position Semi-Fowlers [] - Physical Exam General: Alert, Cooperative, No apparent distress HEENT: Atraumatic, PERRLA, EOMI, Normocephalic Oral: Moist Mucosa, No Gingival or Mucosal Lesions/ Ulcerations Neck: Supple, No JVD, Negative Carotid Bruits, Trachea Midline, Thyroid Normal Size and Texture Lungs: Clear to auscultation, No rhonchi, No wheeze, No rales, Diminished Cardiovascular: Regular rate, Regular Rhythm, Normal S1, Normal S2, PMI Normal Abdomen: Bowel Sounds Present, Soft, Non Tender, Non-Distended, No Hepato- splenomegaly Extremities: No clubbing, No cyanosis, No edema Skin: No rashes, No breakdown Lymphatic: No Cervical, Supraclavicular, or Inguinal Adenopathy Neurological: Cranial nerves II-XII grossly intact, Neuro grossly intact Psych/Mental Status: Flat Affect, confused Plan is as described above. Patient Problems: Active and Suspected Problems Sepsis (Acute) Pyelonephritis (Suspected) - Physical Exam Vital Signs Temp Pulse Resp BP Pulse Ox 99.1 F 63 18 144/90 H 95 09/11/18 08:52 09/11/18 08:52 09/11/18 08:52 09/11/18 08:52 09/11/18 08:52 Oxygen Delivery Method Room Air Weight: 124 lb 12.506 oz Body Mass Index (BMI) 20.7 Finger Stick Blood Glucose 125 Intake and Output for Last 24 Hours 09/09/18 09/10/18 09/11/18 23:59 23:59 23:59 Intake Total 575 / 575 410 / 410 260 / 260 Balance 575 / 575 410 / 410 260 / 260 Microbiology Past 72 Hours 09/08/18 12:30 Blood Culture - Preliminary Blood Culture (Wb) - Right Hand No growth in 48 hours. 09/06/18 18:45 Blood Culture - Final Blood Culture (Wb) - Right Forearm Escherichia coli 09/06/18 19:00 Urine Culture - Final Urine Catheter - Catheter Presumptive E. coli 09/06/18 18:39 Blood Culture - Final Blood Culture (Wb) - Left Forearm GNR lactose information engineer Discharge Activity: Return to Normal Activity Weight Bearing Status: Weight bearing as tolerated Call your doctor if you observe: Fever of 101 or Higher, Shortness of breath Home Medications: Medications to take at Discharge Aspirin 81 mg PO DAILY 07/26/18 Calcium Carbonate/Vitamin D3 [Oyster Shell 500-Vit D3 200 Tb] 1 each PO BID 07/26/18 Cholecalciferol (VIT D3) [Vitamin D3] 1,000 unit PO TUTHSA 07/26/18 Cholecalciferol (VIT D3) [Vitamin D3] 1,500 unit PO SUMOWEFR 07/26/18 Escitalopram Oxalate 10 mg PO QHS 07/26/18 Folic Acid 0.4 mg PO DAILY 07/26/18 Hydroxychloroquine [Plaquenil] 300 mg PO DAILYCM 07/26/18 Multivitamin/Iron/Folic Acid [Centrum Adults Tablet] 1 each PO DAILY 07/26/18 Ensure Enlive 120 ml PO 4X/DAY #30 liquid 09/04/18 Acetaminophen [Tylenol Tablet] 650 mg PO Q6H PRN PRN 09/06/18 Cephalexin [Keflex] 500 mg PO Q8 6 Days #18 capsule 09/11/18 Following Prescrptions Were Given to Patient: Cephalexin [Keflex] 500 mg PO Q8 6 Days #18 capsule Primary Care Physician: Jacobo Kearney MD [Primary Care Provider] - Please follow up with your Primary Care Physician in: one week Please Follow Up With: Price Jaime MD When: 1-2 weeks Patient Instructions: Understanding Urinary Tract Infections (UTIs), Sepsis Disposition: Home with Home Health Minutes spent on discharge:: 45 Patient Condition:: Stable Medical Necessity - Tobacco Use Smoking Status: Former smoker Meaningful Use Info Meaningful Use Diagnoses (Choose all that apply): None applicable Code Visit Inpatient E&M: 80695 Disch Hosp
--- NOTE | 2018-09-11 11:54 | DCINST_ITS ---
- Discharge Diagnoses Current Active Problems: Current Active and Chronic Problems Sepsis (Acute) You will use the following diet at home:: Cardiac - regular textured thin liquid diet with aspiration precautions- supervision with total feed prn, feed only when alert, seat upright at 90 degrees with PO intake, medications with purees Your food should be the consistency of: Regular Your liquids should be the consistency of: Regular/Thin Discharge Activity: Return to Normal Activity Weight Bearing Status: Weight bearing as tolerated Call your doctor if you observe: Fever of 101 or Higher, Shortness of breath Instructions: Understanding Urinary Tract Infections (UTIs), Sepsis Allergies/Adverse Reactions: Allergies Penicillins Allergy (Verified 09/06/18 18:24) Rash erythromycin base [Erythromycin Base] Adverse Reaction (Verified 09/06/18 18:24) Nausea/Vom/Diarrhea Sulfa (Sulfonamide Antibiotics) Adverse Reaction (Verified 09/06/18 18:24) Nausea/Vom/Diarrhea Medications to take at Discharge Aspirin 81 mg PO DAILY 07/26/18 Calcium Carbonate/Vitamin D3 [Oyster Shell 500-Vit D3 200 Tb] 1 each PO BID 1 09/26/17 Cholecalciferol (VIT D3) [Vitamin D3] 1,000 unit PO TUTHSA 07/26/18 Cholecalciferol (VIT D3) [Vitamin D3] 1,500 unit PO SUMOWEFR 07/26/18 Escitalopram Oxalate 10 mg PO QHS 07/26/18 Folic Acid 0.4 mg PO DAILY 07/26/18 Hydroxychloroquine [Plaquenil] 300 mg PO DAILYCM 07/26/18 Multivitamin/Iron/Folic Acid [Centrum Adults Tablet] 1 each PO DAILY 07/26/18 Ensure Enlive 120 ml PO 4X/DAY #30 liquid 09/04/18 Acetaminophen [Tylenol Tablet] 650 mg PO Q6H PRN PRN 09/06/18 Cephalexin [Keflex] 500 mg PO Q8 6 Days #18 capsule 09/11/18 The following prescriptions were given: Cephalexin [Keflex] 500 mg PO Q8 6 Days #18 capsule Primary Care Physician: Jacobo Kearney MD [Primary Care Provider] - Please follow up with your Primary Care Physician in: one week Test Results: Test results from this visit will be discussed in further detail at your follow- up appointment, if applicable. Please Follow Up With: Price Jaime MD When: 1-2 weeks Proposed Discharge Date: 09/11/18
--- NOTE | 2018-09-11 12:28 | PN.ID_ITS ---
Patient Problems: Active and Suspected Problems Sepsis (Acute) Pyelonephritis (Suspected) Subjective: Able to answer some questions, no fever, no abd pain - Physical Exam General: Cooperative, No apparent distress, Lethargic Lungs: Clear to auscultation, Normal air movement Cardiovascular: Regular rate, Regular Rhythm, Murmur Abdomen: Soft, Non Tender, Non-Distended Skin: No rashes Vital Signs Temp Pulse Resp BP Pulse Ox 99.1 F 63 18 144/90 H 95 09/11/18 08:52 09/11/18 08:52 09/11/18 08:52 09/11/18 08:52 09/11/18 08:52 Oxygen Delivery Method Room Air Weight: 56.6 kg Body Mass Index (BMI) 20.7 Finger Stick Blood Glucose 125 Intake and Output for Last 24 Hours 09/09/18 09/10/18 09/11/18 23:59 23:59 23:59 Intake Total 575 / 575 410 / 410 860 / 860 Balance 575 / 575 410 / 410 860 / 860 Microbiology Past 72 Hours 09/08/18 12:30 Blood Culture - Preliminary Blood Culture (Wb) - Right Hand No growth in 48 hours. 09/06/18 18:45 Blood Culture - Final Blood Culture (Wb) - Right Forearm Escherichia coli 09/06/18 19:00 Urine Culture - Final Urine Catheter - Catheter Presumptive E. coli 09/06/18 18:39 Blood Culture - Final Blood Culture (Wb) - Left Forearm GNR lactose loom stop checker Medical Necessity - Tobacco Use Smoking Status: Former smoker Route of nutrition/ use of supplements: [] Nutritional Intake: [] IV Site: [] Ramirez Catheter: [] - Assessment/Plan Antibiotics: [] Assessment/Plan: [] Active and Suspected Problems Acute cystitis (Acute) Sepsis (Acute) Pyelonephritis (Suspected) sepsis due to ecoli bacteremia from urinary source - Much improved. Ok for d/c home on po keflex 500mg tid for 6 more days. Will follow, d/w primary team and housing case manager
--- NOTE | 2018-09-11 13:05 | CASEMGMT ---
Social Work Note Pt is discharging today. XANDER spoke with Michelle at [facility] and informed her that pt is being discharged home today. XANDER faxed discharge paperwork to [facility]. Plan: Pt to discharge home with resumption of aide services, HHC and Palliative Care Services Delaney Dhaliwal FRONT DESK SPECIALIST, LAN SPECIALIST
[2018-09-11 14:04] VITALS: BP 133/57; PULSE 68; RESP 16; TEMP 37.3; O2SAT 94
--- NOTE | 2018-09-11 15:13 | CHAPLAIN ---
Type of Pastoral Visit _x__ Initial Visit ___ Follow-up Visit ___ On-call Visit ___ General Patient Visit ___ Spiritual Assessment ___ Family Conference ___ Bereavement ___ Rapid Response ___ Code Blue ___ Other (describe below) Pastoral Care Referral From ___ Patient ___ Family ___ Nurse ___ Physician ___ Watchstander ___ Supervisor Wool Shearing _x__ Other (describe below) Sacrament/Intervention ___ Active listening ___ Anointing ___ Religion ___ Bereavement ___ Communion ___ Lucrecia exploration ___ ___ Life review ___ Prayer ___ Reconciliation ___ Sacrament of Sick _x__ Supportive presence ___ Wedding ___ Other (describe below) Pastoral Comments patient has been seen by loss prevention and safety manager in previous admissions; loss prevention and safety manager inquires if pt might need spiritual care support; pt does not communicate; spouse says that they are fine and does not seek further support
--- NOTE | 2018-09-12 15:29 | CASEMGMT ---
SEAN STEVENS DC Phone call Note DC DATE: 09/11/18 DC Disposition: Home LACE/STRATA: 14 Intro role of CM to patient's via phone. Pt was not able to participate in call. Per , pt is doing well. Home Care Nurse was in to see patient today and answered questions for them. Per he did not have care improvement suggestions except to be sure someone is available to help patient's when their breakfast trays arrive. Pt was unable to manage the meal herself. No further questions. Forrest BOLTON RN AC
== END 2018-09-11 15:32 | disposition home health service (06) | DRG 871 ==
LOC: ED 19:26 → MS3 19:45
PROVIDERS: Hospitalist; Admitting Provider Hospitalist; Emergency Provider Emergency Medicine; Family Provider Family Medicine; PCP Family Medicine; Referring Provider Hospitalist; Visit Provider Student in an Organized Health Care Education/Training Program
DX: A41.51 Sepsis due to Escherichia coli [E. coli] (principal); G93.41 Metabolic encephalopathy; N30.00 Acute cystitis without hematuria; N12 Tubulo-interstitial nephritis, not specified as acute or chronic; I25.10 Atherosclerotic heart disease of native coronary artery without angina pectoris; E78.5 Hyperlipidemia, unspecified; E87.6 Hypokalemia; M06.4 Inflammatory polyarthropathy; I10 Essential (primary) hypertension; E55.9 Vitamin D deficiency, unspecified; F32.9 Major depressive disorder, single episode, unspecified; Z79.899 Other long term (current) drug therapy; Z95.1 Presence of aortocoronary bypass graft; Z95.5 Presence of coronary angioplasty implant and graft; Z87.891 Personal history of nicotine dependence; F41.9 Anxiety disorder, unspecified
CPT/HCPCS: 36415; 51702; 71045; 74176; 80048; 80053; 81001; 82962; 83605; 83735; 85025; 85610; 85730; 87040; 87086; 87088; 87186; 92526; 92610; 93005; 97110; 97140; 97162; 97166; 97530; 97802; 99285; J7030; A4216

== ENCOUNTER → 2018-09-19 10:42 | Outpatient (CLI) | payer MEDICARE, OTHER, SELFPAY ==
[2018-09-06 20:12] VITALS: BMI 20.7
[2018-09-19 12:23] LABS: Basophil# 0.03 X10^3/uL; Basophil% 0.4 % (0-1); Eosinophil# 0.18 X10^3/uL; Eosinophils% 2.5 % (0-5); Hematocrit 38.7 % (37-47); Hemoglobin 12.3 g/dl (12.0-15.0); Lymphocyte % 16.8 % (19-41); Mean Corp Hgb Conc 31.8 g/gl (32-36); Mean Corpuscular Hgb 28.3 pg (27.0-32.0); Mean Platelet Vol. 10.6 fl (6.2-12.0); Monocyte# 0.69 X10^3/uL; Monocyte% 9.6 % (0-10); Neutrophil # 5.02 X10^3/uL (2.7-7.7); Neutrophil % 70.1 % (47-70); Platelet Count 290 K/mm3 (150-450); RBC Distribution Width CV 15.9 % (11.6-14.6); RBC Distribution Width SD 51.6 fl (35.1-43.9); Red Blood Count 4.35 M/mm3 (4.2-5.4); White Blood Count 7.2 K/mm3 (4.4-11.0)
[2018-09-19 12:27] LABS: POSITIVE COUNT NO; POSITIVE DIFFERENTIAL NO; POSITIVE MORPHOLOGY NO
[2018-09-19 13:12] LABS: ALB/GLOB Ratio 0.7 RATIO (0.9-2.4); AST(SGOT) 32 U/L (15-37); Alanine Aminotransfer ALT/SGPT 36 U/L (13-56); Albumin, Serum 2.9 g/dL (3.2-5.0); Alkaline Phosphatase 83 U/L (45-117); Anion Gap 12 (5-15); BUN 24 mg/dL (7-18); BUN/Creat Ratio 25.5 RATIO (10-20); Calcium,Total 8.7 mg/dL (8.5-10.1); Chloride 104 mmol/L (98-107); Creatinine, Serum 0.94 mg/dL (0.55-1.02); EST Glomerular Filtration Rate 60 mL/min (>60); Est Glom Filt Rate - Afr Amer 73 mL/min (>60); Glucose 114 mg/dL (74-106); Potassium 4.5 mmol/L (3.5-5.1); Protein, Total 6.9 g/dL (6.4-8.2); Sodium Level 140 mmol/L (136-145)
[2018-09-19 14:49] LABS: Pathologist Comment May follow
[2018-09-19 15:22] LABS: RBC /Synovial Fluid 0.008 10^6/uL (0); Synovial Fld Mononuclear WBC % 60.4 %; Synovial Fld Polynuclear WBC # 0.125 10^3/ul; Synovial Fld Polynuclear WBC % 39.6 %
[2018-09-19 17:42] LABS: AUTO B FLUID DILUENT BKGD CT WBC <0.1 RBC <0.01 (W<.1,R<.01); CRYSTALS, BODY FLUID See PATH REV; Source- Body Fluid SYNOVIAL
[2018-09-19 17:48] LABS: Source / Synovial Fluid RIGHT KNEE
[2018-09-19 17:49] LABS: Appearance /Synovial Fluid Hazy (CLEAR); Viscosity / Synovial Fluid Sl. Viscous (HIGH)
[2018-09-19 19:31] LABS: Lymph 6 %; Monocyte /Synovial Fluid 76 %; Neutrophil 11 % (0-25); Other Cell /Synovial Fluid 7 %
[2018-09-19 19:43] LABS: Body Fluid QC Type(s) BF3Q,BF4Q; Color / Synovial Fluid Pink (Pale Yellow)
[2018-09-19 20:05] LABS: Synovial Fld Mononuclear WBC # 0.191 10^3/ul
[2018-09-20 12:32] LABS: Pathologist Review Reviewed
== END ==
LOC: MTLAB 10:43 → LABSPEC 14:31
PROVIDERS: Family Provider Family Medicine; PCP Family Medicine; Referring Provider Internal Medicine Rheumatology; Visit Provider Internal Medicine Rheumatology
DX: M06.4 Inflammatory polyarthropathy (principal); I12.9 Hypertensive chronic kidney disease with stage 1 through stage 4 chronic kidney disease, or unspecified chronic kidney disease; N18.3 Chronic kidney disease, stage 3 (moderate); M17.0 Bilateral primary osteoarthritis of knee; K27.9 Peptic ulcer, site unspecified, unspecified as acute or chronic, without hemorrhage or perforation
CPT/HCPCS: 36415; 80053; 85025; 87070; 87075; 87205; 89050; 89051; 89060

== ENCOUNTER → 2018-11-22 15:55 | Outpatient (CLI) | payer MEDICARE, OTHER, SELFPAY ==
[2018-09-06 20:12] VITALS: BMI 20.7
[2018-11-22 16:34] LABS: Pathologist Comment May follow
[2018-11-22 16:58] LABS: Synovial Fld Mononuclear WBC % 68.8 %; Synovial Fld Polynuclear WBC # 0.158 10^3/ul; Synovial Fld Polynuclear WBC % 31.2 %
[2018-11-22 17:59] LABS: Lymph 31 %; Monocyte /Synovial Fluid 66 %; Neutrophil 3 % (0-25)
[2018-11-22 18:00] LABS: AUTO B FLUID DILUENT BKGD CT WBC <0.1 RBC <0.01 (W<.1,R<.01); Viscosity / Synovial Fluid Sl. Viscous (HIGH)
[2018-11-22 18:01] LABS: Body Fluid QC Type(s) BF2Q,BF3Q
[2018-11-22 18:04] LABS: Appearance /Synovial Fluid Cloudy (CLEAR); Color / Synovial Fluid Yellow (Pale Yellow)
[2018-11-22 18:05] LABS: Source / Synovial Fluid RIGHT KNEE; Source- Body Fluid SYNOVIAL
[2018-11-23 12:34] LABS: Pathologist Review Reviewed
== END ==
PROVIDERS: Family Provider Family Medicine; PCP Family Medicine; Referring Provider Internal Medicine Rheumatology; Visit Provider Internal Medicine Rheumatology
DX: N18.9 Chronic kidney disease, unspecified (principal); M06.4 Inflammatory polyarthropathy; M17.0 Bilateral primary osteoarthritis of knee; I12.9 Hypertensive chronic kidney disease with stage 1 through stage 4 chronic kidney disease, or unspecified chronic kidney disease; N18.3 Chronic kidney disease, stage 3 (moderate); K27.9 Peptic ulcer, site unspecified, unspecified as acute or chronic, without hemorrhage or perforation; F03.90 Unspecified dementia, unspecified severity, without behavioral disturbance, psychotic disturbance, mood disturbance, and anxiety
CPT/HCPCS: 87070; 87075; 87205; 89050; 89051; 89060

== ENCOUNTER → 2019-02-06 16:43 | Outpatient (CLI) | payer MEDICARE, OTHER, SELFPAY ==
[2018-09-06 20:12] VITALS: BMI 20.7
[2019-02-06 16:53] LABS: Pathologist Comment May follow
[2019-02-06 18:11] LABS: RBC /Synovial Fluid 0.009 10^6/uL (0); Synovial Fld Mononuclear WBC % 72.8 %; Synovial Fld Polynuclear WBC # 0.074 10^3/ul; Synovial Fld Polynuclear WBC % 27.2 %
[2019-02-06 20:22] LABS: Lymph 10 %; Monocyte /Synovial Fluid 61 %; Neutrophil 6 % (0-25); Other Cell /Synovial Fluid 23 %
[2019-02-06 20:24] LABS: AUTO B FLUID DILUENT BKGD CT WBC <0.1 RBC <0.01 (W<.1,R<.01)
[2019-02-06 20:25] LABS: Appearance /Synovial Fluid Cloudy (CLEAR); Body Fluid QC Type(s) BF1Q,BF2Q; Color / Synovial Fluid Yellow (Pale Yellow); Source / Synovial Fluid RIGHT KNEE; Source- Body Fluid SYNOVIAL; Synovial Fld Mononuclear WBC # 0.198 10^3/ul
[2019-02-08 09:46] LABS: Pathologist Review Reviewed
== END ==
PROVIDERS: PCP Family Medicine; Visit Provider Internal Medicine Rheumatology
DX: M06.4 Inflammatory polyarthropathy (principal); M25.561 Pain in right knee; M17.0 Bilateral primary osteoarthritis of knee; K27.9 Peptic ulcer, site unspecified, unspecified as acute or chronic, without hemorrhage or perforation; I12.9 Hypertensive chronic kidney disease with stage 1 through stage 4 chronic kidney disease, or unspecified chronic kidney disease; N18.9 Chronic kidney disease, unspecified; F03.90 Unspecified dementia, unspecified severity, without behavioral disturbance, psychotic disturbance, mood disturbance, and anxiety
CPT/HCPCS: 87070; 87075; 87205; 89050; 89051; 89060

== ENCOUNTER 2019-02-14 17:30 | Emergency (ER) | payer MEDICARE, OTHER, SELFPAY ==
[2019-02-08 14:56] VITALS: BMI 24.0
[2019-02-14 17:31] VITALS: PULSE 85; RESP 18; TEMP 36.4; O2SAT 97; BMI 24.7
--- NOTE | 2019-02-14 18:03 | ED.VISSUMM ---
- ER Visit Summary Date of Service: 02/14/19 Chief Complaint: UTI History of Present Illness: The patient is a 83 F who presents from home with her and caregiver. They are concerned for UTI. The patient has dementia and some baseline agitation, but she is normally redirectable. They are unable to calm her, and they suspect she has a UTI. She had similar symptoms in the past with a UTI. She has foul-smelling urine and constipation. Denies pain or fevers or any other associated symptoms. Denies falls, changes in her medication. Physical Examination: Afebrile and vital signs are unremarkable. Patient is alert, agitated. Yelling. Head and neck atraumatic. Heart regular and lungs clear. Abdomen soft. Back is nontender. Moves all extremities. Good strength sensation. Test Results: Urinalysis, labs, x-ray pending. Emergency Department Course and Treatment: Patient was treated with Haldol for agitation. Will check work-up as above. She required additional sedation for agitation. Was treated with Geodon to perform testing. White count 11.6, BUN 30, creatinine 1.03. Hepatic panel unremarkable. Urinalysis unremarkable. Chest and abdominal x-rays unremarkable. On reevaluation, had no further concerns. He felt that she was at baseline and appropriate for home care. He feels comfortable taking care of her at home. Patient will be discharged after discussion with him. Treatment Plan: As above Disposition: Discharge Impression: 1. Aggressive behavior This note was generated with [employer] dictation software. It may contain incorrect words, spelling, and punctuation that were not noted in review of the chart prior to signing ED Disposition - Plan for ED Patient: Referrals: Jacobo Kearney MD [Primary Care Provider] -
[2019-02-14] MEDS: Haloperidol Lactate 5 MG/ML Vial 4 MG IM (18:06)
--- NOTE | 2019-02-14 18:21 | ED.RN ---
PT SHOUTING, TEARFUL UPSET. PT SHOUTING AT THIS RN, I DON'T WANT TO BE HERE, WHY ARE YOU GOING TO HURT ME. SHUT UP, YOU DON'T CARE ANYWAY. THIS RN AND BRITTNY RN AT BEDSIDE OFFERING EMOTIONAL SUPPORT. HALDOL GIVEN. WILL CONTINUE TO MONITOR. PT GIVEN TISSUES TO DRY TEARS. SALES AND MARKETING ENGINEER AT BEDSIDE. DR. SPEARS AWARE OF BEING UNABLE TO OBTAIN BP.
[2019-02-14] MEDS: Ziprasidone IM 20 MG/ML VIAL 10 MG IM (19:19)
--- NOTE | 2019-02-14 19:30 | ED.RN ---
THIS RN ATTEMPTED STRAIGHT CATH PRIOR TO DRAWING BLOOD. PT BEARING DOWN AND CLENCHING LEGS TOGETHER. UNABLE TO OBTIN URINE AT THIS TIME. DR. SPEARS INFORMED. MORE MEDICATION ORDER. PT CONTINUES TO SHOUT.
[2019-02-14 19:41] LABS: Absolute Lymphocyte Count 2.22 X10^3/uL (0.83-4.51); Basophil# 0.03 X10^3/uL; Basophil% 0.3 % (0-1); Eosinophil# 0.11 X10^3/uL; Eosinophils% 0.9 % (0-5); Hematocrit 44.1 % (37-47); Hemoglobin 14.4 g/dL (12.0-15.0); Lymphocyte # 2.22 X10^3/ul (4.0); Lymphocyte % 19.1 % (19-41); Mean Corp Hgb Conc 32.7 g/dL (32-36); Mean Corpuscular Hgb 28.1 pg (27.0-32.0); Mean Platelet Vol. 9.8 fl (6.2-12.0); Monocyte# 1.15 X10^3/uL; Monocyte% 9.9 % (0-10); NRBC Flagged by Analyzer 0 % (0-5); Neutrophil # 8.02 X10^3/uL (2.7-7.7); Neutrophil % 68.9 % (47-70); Platelet Count 227 K/mm3 (150-450); RBC Distribution Width CV 14.2 % (11.6-14.6); RBC Distribution Width SD 43.9 fl (35.1-43.9); Red Blood Count 5.13 M/mm3 (4.2-5.4); White Blood Count 11.6 K/mm3 (4.4-11.0)
[2019-02-14 19:44] VITALS: BP 171/63; PULSE 62; RESP 18; TEMP 36.9; O2SAT 97
--- NOTE | 2019-02-14 19:50 | RAD_ITS ---
STUDY: X-RAY - ACUTE ABDOMINAL SERIES REASON FOR EXAM: Female, 83 years old. Confusion TECHNIQUE: Single view of the chest. Supine, 2 view(s) of the abdomen were obtained. COMPARISON: None. FINDINGS: Sternotomy wires are noted. The lungs are clear and expanded. Normal size heart. Normal mediastinum and anish. Normal visualized pulmonary arteries. Normal visualized aortic arch and descending thoracic aorta. There is a non-specific bowel gas pattern. Mild fecal retention. The soft tissue structures of the abdomen and pelvis are unremarkable. Degenerative vertebral changes. Surgical fusion of lower lumbar levels. RAD/Acute Abdomen Inc Chest IMPRESSION: No sign of bowel obstruction. Electronically Signed: Hernando Karimi DO at 20:15 EDT Tel [phone], Service support ,
[2019-02-14 19:52] LABS: AST(SGOT) 25 U/L (15-37); Alanine Aminotransfer ALT/SGPT 33 U/L (13-56); Albumin, Serum 3.7 g/dL (3.2-5.0); Alkaline Phosphatase 86 U/L (45-117); Anion Gap 6 (5-15); BUN 30 mg/dL (7-18); BUN/Creat Ratio 29.1 RATIO (10-20); Calcium,Total 8.9 mg/dL (8.5-10.1); Chloride 106 mmol/L (98-107); Creatinine, Serum 1.03 mg/dL (0.55-1.02); EST Glomerular Filtration Rate 54 mL/min (>60); Est Glom Filt Rate - Afr Amer 66 mL/min (>60); Estimated Creatinine Clearance 30.25 ml/min; Globulin 3.6 g/dL (2.2-4.2); Glucose 88 mg/dL (74-106); Potassium 4.2 mmol/L (3.5-5.1); Protein, Total 7.3 g/dL (6.4-8.2); Sodium Level 138 mmol/L (136-145)
[2019-02-14 20:34] VITALS: BP 179/70; PULSE 63; RESP 17; TEMP 36.8; O2SAT 98
[2019-02-14 20:35] LABS: Bacteria 0 SEEN /hpf (None Seen); Mucous, Urine 0 SEEN /hpf (<or=2+); Red Blood Cells-Urine 0 SEEN /hpf (0-5); White Blood Cells 0 SEEN /hpf (0-5)
[2019-02-14 20:39] LABS: Color, Urine Yellow (Yellow); Glucose, Dipstick Normal (Normal); Ketone-Dipstick Negative (Negative); Leukocyte Esterase-Dipstick Negative /ul (Negative); Nitrite-Dipstick Negative (Negative); Occult Blood-Urine 10 /ul (Negative); Protein-Dipstick Negative (Negative); Specific Gravity, Urine 1.015 (1.002-1.030); Urine Bilirubin Dipstick Negative (Negative); Urine Clarity Clear (Clear); Urine Urobilinogen Normal (Normal)
[2019-02-14 20:50] LABS: Squamous Epithelial Cells - UA 0-5 SEEN /hpf (5-10)
--- NOTE | 2019-02-14 21:14 | ED.DEP ---
ED Disposition - Plan for ED Patient: Instructions: DEMENTIA, Any Type Referrals: Jacobo Kearney MD [Primary Care Provider] -
[2019-02-14 21:50] VITALS: BP 119/83; PULSE 62; RESP 14
--- NOTE | 2019-02-14 22:25 | EKG12_ITS ---
Test Reason : FALL Blood Pressure : / mmHG Vent. Rate : 064 BPM Atrial Rate : 064 BPM P-R Int : 186 ms QRS Dur : 148 ms QT Int : 436 ms P-R-T Axes : 046 -53 014 degrees QTc Int : 449 ms Normal sinus rhythm Right bundle branch block Left anterior fascicular block Bifascicular block Voltage criteria for left ventricular hypertrophy Abnormal ECG Confirmed by BRENDAN ROBLES, PALOMO ([id number]), visual effects editor SHANNNA MADERA ([id number]) on 02/19/2019 12:17:30 PM Referred By: TORY Confirmed By:PALOMO CARDONA MD
== END 2019-02-14 21:51 | disposition home or self-care (01) ==
LOC: ED 18:15
PROVIDERS: Emergency Provider Emergency Medicine; Family Provider Family Medicine; PCP Family Medicine
DX: R46.89 Other symptoms and signs involving appearance and behavior (principal); F03.90 Unspecified dementia, unspecified severity, without behavioral disturbance, psychotic disturbance, mood disturbance, and anxiety; R45.1 Restlessness and agitation; R30.0 Dysuria; K59.00 Constipation, unspecified; I25.10 Atherosclerotic heart disease of native coronary artery without angina pectoris; I10 Essential (primary) hypertension; Z79.82 Long term (current) use of aspirin; Z79.899 Other long term (current) drug therapy; Z87.891 Personal history of nicotine dependence
CPT/HCPCS: 74022; 80053; 81001; 85025; 93005; 96360; 96372; 99285; J7040; P9612; A4216; J3486

== ENCOUNTER → 2019-03-08 13:55 | Outpatient (CLI) | payer MEDICARE, OTHER, SELFPAY ==
[2019-02-14 17:31] VITALS: BMI 24.7
[2019-03-08 15:39] LABS: Absolute Lymphocyte Count 1.26 X10^3/uL (0.83-4.51); Absolute Neutrophil Count 5.2 X10^3/uL (2.0-7.7); Basophil# 0.05 X10^3/uL; Basophil% 0.7 % (0-1); Eosinophil# 0.26 X10^3/uL; Eosinophils% 3.5 % (0-5); Hematocrit 43.7 % (37-47); Hemoglobin 14.2 g/dL (12.0-15.0); Lymphocyte # 1.26 X10^3/ul (4.0); Lymphocyte % 16.8 % (19-41); Mean Corp Hgb Conc 32.5 g/dL (32-36); Mean Corpuscular Hgb 28.5 pg (27.0-32.0); Mean Corpuscular Volume 87.6 fL (81-99); Mean Platelet Vol. 9.8 fl (6.2-12.0); Monocyte# 0.63 X10^3/uL; Monocyte% 8.4 % (0-10); NRBC Flagged by Analyzer 0 % (0-5); Neutrophil # 5.21 X10^3/uL (2.7-7.7); Neutrophil % 69.4 % (47-70); Platelet Count 228 K/mm3 (150-450); RBC Distribution Width CV 14.4 % (11.6-14.6); RBC Distribution Width SD 46.1 fl (35.1-43.9); Red Blood Count 4.99 M/mm3 (4.2-5.4); White Blood Count 7.5 K/mm3 (4.4-11.0)
[2019-03-08 15:57] LABS: ALB/GLOB Ratio 0.9 RATIO (0.9-2.4); AST(SGOT) 27 U/L (15-37); Alanine Aminotransfer ALT/SGPT 39 U/L (13-56); Albumin, Serum 3.2 g/dL (3.2-5.0); Alkaline Phosphatase 86 U/L (45-117); Anion Gap 9 (5-15); BUN 28 mg/dL (7-18); BUN/Creat Ratio 27.7 RATIO (10-20); Calcium,Total 8.5 mg/dL (8.5-10.1); Chloride 106 mmol/L (98-107); Creatinine, Serum 1.01 mg/dL (0.55-1.02); EST Glomerular Filtration Rate 56 mL/min (>60); Est Glom Filt Rate - Afr Amer 67 mL/min (>60); Globulin 3.4 g/dL (2.2-4.2); Glucose 159 mg/dL (74-106); Potassium 4.6 mmol/L (3.5-5.1); Protein, Total 6.6 g/dL (6.4-8.2); Sodium Level 140 mmol/L (136-145)
== END ==
PROVIDERS: Family Provider Family Medicine; PCP Family Medicine; Referring Provider Internal Medicine Rheumatology; Visit Provider Internal Medicine Rheumatology
DX: M06.4 Inflammatory polyarthropathy (principal); M17.0 Bilateral primary osteoarthritis of knee; M25.561 Pain in right knee; I12.9 Hypertensive chronic kidney disease with stage 1 through stage 4 chronic kidney disease, or unspecified chronic kidney disease; N18.3 Chronic kidney disease, stage 3 (moderate); K27.9 Peptic ulcer, site unspecified, unspecified as acute or chronic, without hemorrhage or perforation; F03.90 Unspecified dementia, unspecified severity, without behavioral disturbance, psychotic disturbance, mood disturbance, and anxiety
CPT/HCPCS: 36415; 80053; 85025

== ENCOUNTER → 2019-06-04 14:31 | Outpatient (CLI) | payer MEDICARE, OTHER, SELFPAY ==
[2019-06-04 17:32] LABS: Absolute Lymphocyte Count 1.42 X10^3/uL (0.83-4.51); Absolute Neutrophil Count 4.7 X10^3/uL (2.0-7.7); Basophil# 0.04 X10^3/uL; Basophil% 0.6 % (0-1); Eosinophils% 4.2 % (0-5); Hematocrit 40.4 % (37-47); Hemoglobin 12.5 g/dL (12.0-15.0); Lymphocyte # 1.42 X10^3/ul (4.0); Mean Corp Hgb Conc 30.9 g/dL (32-36); Mean Corpuscular Volume 90.4 fL (81-99); Monocyte# 0.64 X10^3/uL; NRBC Flagged by Analyzer 0 % (0-5); Neutrophil # 4.66 X10^3/uL (2.7-7.7); Neutrophil % 65.6 % (47-70); Platelet Count 208 K/mm3 (150-450); RBC Distribution Width CV 14.3 % (11.6-14.6); RBC Distribution Width SD 47.5 fl (35.1-43.9); Red Blood Count 4.47 M/mm3 (4.2-5.4); White Blood Count 7.1 K/mm3 (4.4-11.0)
[2019-06-04 17:56] LABS: ALB/GLOB Ratio 0.9 RATIO (0.9-2.4); AST(SGOT) 25 U/L (15-37); Alanine Aminotransfer ALT/SGPT 25 U/L (13-56); Albumin, Serum 3.2 g/dL (3.2-5.0); Alkaline Phosphatase 74 U/L (45-117); Anion Gap 8 (5-15); BUN 23 mg/dL (7-18); BUN/Creat Ratio 23.1 RATIO (10-20); Calcium,Total 8.6 mg/dL (8.5-10.1); Chloride 103 mmol/L (98-107); EST Glomerular Filtration Rate 57 mL/min (>60); Est Glom Filt Rate - Afr Amer 68 mL/min (>60); Globulin 3.5 g/dL (2.2-4.2); Glucose 125 mg/dL (74-106); Potassium 4.1 mmol/L (3.5-5.1); Protein, Total 6.7 g/dL (6.4-8.2); Sodium Level 140 mmol/L (136-145)
[2019-06-08 16:20] LABS: Nortriptyline Level 48 ng/mL (50-150)
== END ==
PROVIDERS: Internal Medicine Rheumatology; Family Provider Family Medicine; PCP Family Medicine; Referring Provider Psychiatry & Neurology Psychiatry; Visit Provider Psychiatry & Neurology Psychiatry
DX: M06.4 Inflammatory polyarthropathy (principal); I12.9 Hypertensive chronic kidney disease with stage 1 through stage 4 chronic kidney disease, or unspecified chronic kidney disease; N18.3 Chronic kidney disease, stage 3 (moderate); M17.0 Bilateral primary osteoarthritis of knee; M25.561 Pain in right knee; K27.9 Peptic ulcer, site unspecified, unspecified as acute or chronic, without hemorrhage or perforation; F03.90 Unspecified dementia, unspecified severity, without behavioral disturbance, psychotic disturbance, mood disturbance, and anxiety; Z51.81 Encounter for therapeutic drug level monitoring; Z79.899 Other long term (current) drug therapy
CPT/HCPCS: 36415; 80053; 80335; 85025

== ENCOUNTER → 2019-08-14 10:32 | Outpatient (CLI) | payer MEDICARE, OTHER, SELFPAY ==
[2019-08-14 08:51] VITALS: BMI 24.0
--- NOTE | 2019-08-14 10:36 | RAD_ITS ---
STUDY: X-RAY CHEST REASON FOR EXAM: Female, 84 years old. WHEEZING TECHNIQUE: AP and lateral views of the chest. COMPARISON: Prior chest 02/14/2019 FINDINGS: The lungs are clear and expanded. There is no demonstrated pleural abnormality. Normal size heart. Status post sternotomy changes are noted. Normal mediastinum and anish. Normal visualized pulmonary arteries. Normal visualized aortic arch and descending thoracic aorta. There is demineralization of the osseous structures. Normal visualized ribs, clavicles, and shoulders. There is no demonstrated abnormality of the visualized soft tissue structures of the upper abdomen. RAD/Chest PA and Lateral IMPRESSION: Status post sternotomy. Generalized osteopenia. No acute cardiopulmonary disease process is noted. Electronically Signed: Glenn Nicole MD at 23:14 EST , Service support ,
[2019-08-14 12:00] LABS: Absolute Lymphocyte Count 1.45 X10^3/uL (0.83-4.51); Absolute Neutrophil Count 4.1 X10^3/uL (2.0-7.7); Basophil# 0.07 X10^3/uL; Eosinophil# 0.54 X10^3/uL; Eosinophils% 7.9 % (0-5); Hemoglobin 12.9 g/dL (12.0-15.0); Lymphocyte # 1.45 X10^3/ul (4.0); Lymphocyte % 21.3 % (19-41); Mean Corp Hgb Conc 31.5 g/dL (32-36); Mean Corpuscular Volume 89.1 fL (81-99); Monocyte# 0.62 X10^3/uL; Monocyte% 9.1 % (0-10); NRBC Flagged by Analyzer 0 % (0-5); Neutrophil # 4.05 X10^3/uL (2.7-7.7); Neutrophil % 59.7 % (47-70); Platelet Count 213 K/mm3 (150-450); RBC Distribution Width CV 14.9 % (11.6-14.6); RBC Distribution Width SD 47.9 fl (35.1-43.9); White Blood Count 6.8 K/mm3 (4.4-11.0)
[2019-08-14 12:06] LABS: Anion Gap 5 (5-15); BUN 18 mg/dL (7-18); BUN/Creat Ratio 18.3 RATIO (10-20); Calcium,Total 9.1 mg/dL (8.5-10.1); Chloride 105 mmol/L (98-107); Creatinine, Serum 0.98 mg/dL (0.55-1.02); EST Glomerular Filtration Rate 57 mL/min (>60); Est Glom Filt Rate - Afr Amer 70 mL/min (>60); Glucose 82 mg/dL (74-106); Sodium Level 139 mmol/L (136-145)
[2019-08-14 12:16] LABS: BNP,B-Type NATRIURETIC PEPTIDE 76.9 pg/mL (0-100)
== END ==
PROVIDERS: Family Provider Family Medicine; PCP Family Medicine; Referring Provider Physician Assistant Medical; Visit Provider Physician Assistant Medical
DX: R06.09 Other forms of dyspnea (principal); R06.2 Wheezing; R60.9 Edema, unspecified; I25.10 Atherosclerotic heart disease of native coronary artery without angina pectoris
CPT/HCPCS: 36415; 71046; 80048; 83880; 85025

== ENCOUNTER → 2020-01-23 14:36 | Outpatient (CLI) | payer MEDICARE, OTHER, SELFPAY ==
[2019-08-14 08:51] VITALS: BMI 24.0
[2020-01-23 17:44] LABS: Absolute Neutrophil Count 7.4 X10^3/uL (2.0-7.7); Basophil# 0.06 X10^3/uL; Basophil% 0.6 % (0-1); Eosinophil# 0.54 X10^3/uL; Eosinophils% 5.1 % (0-5); Hematocrit 41.4 % (37-47); Hemoglobin 12.6 g/dL (12.0-15.0); Lymphocyte % 16.2 % (19-41); Mean Corp Hgb Conc 30.4 g/dL (32-36); Mean Corpuscular Hgb 28.6 pg (27.0-32.0); Mean Corpuscular Volume 94.1 fL (81-99); Mean Platelet Vol. 10.7 fl (6.2-12.0); Monocyte# 0.76 X10^3/uL; Monocyte% 7.2 % (0-10); NRBC Flagged by Analyzer 0 % (0-5); Neutrophil # 7.39 X10^3/uL (2.7-7.7); Neutrophil % 70.2 % (47-70); Platelet Count 227 K/mm3 (150-450); RBC Distribution Width CV 14.6 % (11.6-14.6); RBC Distribution Width SD 50.3 fl (35.1-43.9); White Blood Count 10.5 K/mm3 (4.4-11.0)
[2020-01-23 18:01] LABS: ALB/GLOB Ratio 0.8 RATIO (0.9-2.4); AST(SGOT) 18 U/L (15-37); Alanine Aminotransfer ALT/SGPT 22 U/L (13-56); Albumin, Serum 3.4 g/dL (3.2-5.0); Alkaline Phosphatase 88 U/L (45-117); Anion Gap 6 (5-15); BUN 26 mg/dL (7-18); BUN/Creat Ratio 25.5 RATIO (10-20); Chloride 102 mmol/L (98-107); Creatinine, Serum 1.02 mg/dL (0.55-1.02); EST Glomerular Filtration Rate 55 mL/min (>60); Est Glom Filt Rate - Afr Amer 66 mL/min (>60); Glucose 125 mg/dL (74-106); Potassium 4.2 mmol/L (3.5-5.1); Protein, Total 7.4 g/dL (6.4-8.2); Sodium Level 138 mmol/L (136-145)
== END ==
PROVIDERS: PCP Family Medicine; Referring Provider Internal Medicine Rheumatology; Visit Provider Internal Medicine Rheumatology
DX: M06.4 Inflammatory polyarthropathy (principal); M17.0 Bilateral primary osteoarthritis of knee; K27.9 Peptic ulcer, site unspecified, unspecified as acute or chronic, without hemorrhage or perforation; I12.9 Hypertensive chronic kidney disease with stage 1 through stage 4 chronic kidney disease, or unspecified chronic kidney disease; N18.9 Chronic kidney disease, unspecified; F03.90 Unspecified dementia, unspecified severity, without behavioral disturbance, psychotic disturbance, mood disturbance, and anxiety
CPT/HCPCS: 36415; 80053; 85025